=== PATIENT | female | born 1975 | race Caucasian/White ===

== ENCOUNTER 2022-04-22 13:08 | Emergency (ER) | payer BC, SELFPAY ==
[2022-04-22 13:16] VITALS: BP 121/84; PULSE 86; RESP 18; TEMP 36.7; O2SAT 97; BMI 27.3
--- NOTE | 2022-04-22 13:31 | ED_ITS ---
HPI - General Adult General Time Seen by Provider: 13:31 Date Seen: 04/22/22 Chief complaint: Headache/Migraine Stated complaint: migraine Time Seen by Provider: 04/22/22 13:16 Source: patient Mode of arrival: ambulatory Limitations: no limitations History of Present Illness HPI narrative: Patient is a 46-year-old female with history chronic migraines presents with a migraine headache for about the last 10 hours it has been quite significant she has tried her home medications and they have not been successful. No thunderclap nature of the headache, no nuchal rigidity, no neurologic complaints, mild photophobia, and frontal intention type mixed headache symptoms. She presents to ED for evaluation. She had good response to ketamine last visit. Related Data Home Medications Medication Instructions Recorded Confirmed albuterol sulfate 90 mcg/actuation 2 puff inhalation Q4-6H PRN 04/02/22 aerosol inhaler (Ventolin HFA) cyclobenzaprine 10 mg tablet 10 mg PO .QHS PRN 04/02/22 duloxetine 60 mg capsule,delayed 60 mg PO BID 04/02/22 release eszopiclone 3 mg tablet (Lunesta) 3 mg PO .QHS 04/02/22 ondansetron HCl 4 mg tablet 4 mg PO Q6H 04/02/22 Previous Rx's Medication Instructions Recorded pregabalin 200 mg capsule (Lyrica) 200 mg PO .QHS #30 caps 04/10/22 Allergies Allergy/AdvReac Type Severity Reaction Status Date / Time hydrocodone Allergy Mild systemic Verified 03/13/22 10:06 itching, vomiting iodine Allergy Mild itching Verified 03/13/22 10:06 amoxicillin AdvReac Mild Diarrhea Verified 03/13/22 10:06 Shellfish Allergy Allergy Mild vomiting, Uncoded 03/13/22 10:06 itching Clavulanate AdvReac Mild Diarrhea Uncoded 03/13/22 10:06 Review of Systems Status of ROS: Reports: 6 or more systems reviewed and unremarkable except as noted in History and below [facility] Medical History Hemorrhoids Surgical History History of hammer toe correction History of hemorrhoidectomy History of ovarian cystectomy History of sinus surgery History of third molar tooth extraction Family History Mother Breast cancer Other Colon cancer Diabetes Heart disease Stroke Social History Narrative: smoker Smoking Status: Never smoker How often do you have a drink containing alcohol: never AUDIT-C Alcohol total score: 0 Non-prescribed substance use: denies use Exam Narrative: Exam Narrative: Objective: Patient is alert orient x3, pupils equal react to light, no facial asymmetry, throat clear Neck is supple Neurologic nonfocal upper lower extremities patient is ambulatory without difficulty, denies any paresthesias or strength deficit any extremity Good peripheral perfusion noted Skin warm and dry Const: Vital Signs, click to edit/add: Vital Signs - 24 hr 04/22/22 13:16 Temperature 98.1 F Pulse Rate [Left P ulse Oximeter] 86 Respiratory Rate 18 Blood Pressure [Le ft Upper Arm] 121/84 Pulse Oximetry 97 Oxygen Delivery Me thod Room Air Course Vital Signs Vital signs: Initial Vital Signs Temperature 98.1 F 04/22/22 13:16 Temperature Source Temporal Artery Scan 04/22/22 13:16 Pulse Rate 86 04/22/22 13:16 Respiratory Rate 18 04/22/22 13:16 Blood Pressure 121/84 04/22/22 13:16 Blood Pressure Mean 96 04/22/22 13:16 Blood Pressure Position Sitting 04/22/22 13:16 Pulse Oximetry 97 04/22/22 13:16 Oxygen Delivery Method 04/22/22 13:16 Vital Signs Temperature 98.1 F 04/22/22 13:16 Pulse Rate 86 04/22/22 13:16 Respiratory Rate 18 04/22/22 13:16 Blood Pressure 121/84 04/22/22 13:16 Pulse Oximetry 97 04/22/22 13:16 Oxygen Delivery Method 04/22/22 13:16 Temperature 98.1 F 04/22/22 13:16 Pulse Rate 86 04/22/22 13:16 Respiratory Rate 18 04/22/22 13:16 Blood Pressure 121/84 04/22/22 13:16 Pulse Oximetry 97 04/22/22 13:16 Oxygen Delivery Method 04/22/22 13:16 Medical Decision Making MDM Narrative Medical decision making narrative: The patient has responded well to ketamine in the past, she has a longstanding migrainous person, will give her some IV Solu-Medrol and ketamine as she had last visit and that seemed to help her quite a bit. Should be monitored in the ED for a period of time, then discharge home with family for rest observation. Would recommend followup with regular doctor within the next couple of days. Patient feels markedly better after her IV ketamine and fluid in Solu-Medrol, will allow to go home rest light activity, light diet, update primary care in the next 48 hours, return to ED sooner problems concerns difficulty. Discharge Plan Discharge Clinical Impression: Migraine headache Patient Disposition: Home w/ Parent or Adult Condition: Improved Additional Instructions: Rest, light activity, use her home medications as per usual Update primary care doctor next couple of days, looked very light activity today as mention Discharge Diet: Regular Prescriptions: No Action ondansetron HCl 4 mg tablet 4 mg PO Q6H albuterol sulfate [Ventolin HFA] 90 mcg/actuation HFA aerosol inhaler 2 puff inhalation Q4-6H PRN eszopiclone [Lunesta] 3 mg tablet 3 mg PO .QHS cyclobenzaprine 10 mg tablet 10 mg PO .QHS PRN duloxetine 60 mg capsule,delayed release(DR/EC) 60 mg PO BID pregabalin [Lyrica] 200 mg capsule 200 mg PO .QHS Qty: 30 0RF Follow Up/Referrals: Bessy Rivera PA-C [Primary Care Provider] - Stand Alone Forms: [employer] Info Instructions
[2022-04-22] MEDS: KETAMINE HCL 20 MG in 0.9 % SODIUM CHLORIDE 100 ml 100 ML 200.4 MG IVPB (14:01)
[2022-04-22] MEDS: METHYLPREDNISOLONE SOD SUCC 62.5 MG/ML (125) 125 MG IVP (14:01)
[2022-04-22] MEDS: 0.9 % SODIUM CHLORIDE 1000 ml 1,000 ML IV (14:01)
== END 2022-04-22 15:30 | disposition home or self-care (01) ==
LOC: ED 14:12
PROVIDERS: Emergency Provider Family Medicine; PCP Physician Assistant Medical
DX: R51.9 Headache, unspecified (principal)
CPT/HCPCS: 96365; 96375; 99284; J2930; J3490; J7030

== ENCOUNTER 2022-08-31 02:27 | Emergency (ER) | payer BC, SELFPAY ==
[2022-08-31 02:36] VITALS: BP 134/93; PULSE 88; RESP 18; TEMP 36.9; O2SAT 98
--- NOTE | 2022-08-31 03:03 | ED_ITS ---
HPI - Dental/Oral General Time Seen by Provider: 03:03 Date Seen: 08/31/22 Chief complaint: Jaw Injury/Pain Stated complaint: extreme jaw pain on right side with migraine Time Seen by Provider: 08/31/22 03:03 Source: patient, RN notes reviewed and old records reviewed Mode of arrival: ambulatory Limitations: no limitations History of Present Illness HPI Narrative: Madison is a very pleasant 47-year-old female with a history of migraines, anxiety depression and now dental pain who presents to the ER for jaw pain as well as headache. Patient notes the onset of a dull ache in her right lower on WednesdayAugust 28. She does not remember injuring a tooth but felt like may be a filling had fallen out. She notes that in the last 24 hours the pain now radiates into her face and in back into her ear. She notes no specific ear pain or drainage. She has not had a fever but does feel like she has had chills. She is not sure she has a bad taste in her mouth. She notes that this has marked a migraine for her. This migraine is typical for her. She has tried her Relpax an injectable Toradol at home. Last dose of Toradol was greater than 12 hours ago. She and her daughter have both had cold-like symptoms. She describes a runny nose and a mild cough. Her daughter did test and she was negative for COVID. Madison herself has not had any of those tests. Madison sees a dentist in [place] named Dr. Floyd and already has a call into him. MD Complaint: tooth pain and tooth injury Teeth map: 1. Related Data Previous Rx's Medication Instructions Recorded cyclobenzaprine 10 mg tablet 10 mg PO .QHS PRN muscle spasm #30 06/03/22 tabs pregabalin 200 mg capsule (Lyrica) 200 mg PO .QHS #90 caps 06/03/22 duloxetine 60 mg capsule,delayed 60 mg PO BID #180 caps 08/05/22 release fluoxetine 20 mg capsule 20 mg PO QDAY #30 caps 08/05/22 eszopiclone 3 mg tablet (Lunesta) 3 mg PO .QHS #30 tabs 08/11/22 Allergies Allergy/AdvReac Type Severity Reaction Status Date / Time hydrocodone Allergy Mild systemic Verified 08/05/22 13:44 itching, vomiting iodine Allergy Mild itching Verified 08/05/22 13:44 amoxicillin AdvReac Mild Diarrhea Verified 08/05/22 13:44 Shellfish Allergy Allergy Mild vomiting, Uncoded 08/05/22 13:44 itching Clavulanate AdvReac Mild Diarrhea Uncoded 08/05/22 13:44 Review of Systems Status of ROS: Reports: 6 or more systems reviewed and unremarkable except as noted in History and below Const: Reports: chills; Denies: fever Eyes: Denies: change in vision ENMT: Reports: mouth pain; Denies: throat pain, throat swelling, difficulty swallowing, swelling of l ips/tongue, ear pain or ear discharge Cardio: Denies: shortness of breath with exertion Resp: Reports: cough; Denies: shortness of breath GI: Denies: abdominal pain or difficulty swallowing Neuro: Reports: headache Allergy/Immuno: Denies: throat swelling [facility] Medical History Hemorrhoids Surgical History History of hammer toe correction History of hemorrhoidectomy History of ovarian cystectomy History of sinus surgery History of third molar tooth extraction Family History Mother Breast cancer Other Colon cancer Diabetes Heart disease Stroke Social History Narrative: smoker Smoking Status: Current every day smoker How often do you have a drink containing alcohol: never AUDIT-C Alcohol total score: 0 Non-prescribed substance use: denies use Little interest or pleasure in doing things: more than half the days Feeling down, depressed, or hopeless: nearly every day service: No Exam Narrative: Exam Narrative: Alert and oriented. Somewhat dramatic in appearance. Eyes are clear. TMs bilaterally without fluid. Pupils are equal and round and reactive. Patient does appear to have mild photophobia. Face is symmetrical. Patient is tender to touch at angle of the right jaw but I do not palpate any lymphadenopathy and there is no erythema or edema. Heart with regular rate and rhythm. No respiratory distress and lungs are clear. Oral cavity shows moist mucous membranes. No erythema exudate in the posterior oropharynx. Tooth number 31 shows the inside back corner appears to have been broken off or perhaps there had been a filling in this location and had fallen out. There is no swelling of the gum around this area. I do not see any disc harge at this time. No trismus on exam. Moving all extremities. Const: Vital Signs, click to edit/add: Vital Signs - 24 hr 08/31/22 02:36 Temperature 98.4 F Pulse Rate [Right Pulse Oximeter] 88 Respiratory Rate 18 Blood Pressure [Ri ght Upper Arm] 134/93 H Pulse Oximetry 98 Oxygen Delivery Me thod Room Air Documenting provider has reviewed patient's vital signs: yes Course Course Hospital Course: Patient is experiencing dental pain that appears to have sparked a migraine. She does not appear to be toxic or have ongoing significant infection but will start penicillin 500 mg p.o. here in the ER. An IV will be placed ketamine 20 mg IV, Toradol 15 mg IV and Tylenol with codeine 2 tablets will be given to patient. Note patient has an allergy to hydrocodone that is described as a feeling of tingling on the skin. Patient states that she has gotten relief with codeine in the past and will attempt to give her some relief here tonight. Previous notes note that she had good relief from her migraine with ketamine. Reevaluation(s) Reevaluation #1: Patient noted to be improved after IV treatment. Penicillin 500 mg p.o. given in the ED as well. Vital Signs Vital signs: Initial Vital Signs Temperature 98.4 F 08/31/22 02:36 Temperature Source Temporal Artery Scan 08/31/22 02:36 Pulse Rate 88 08/31/22 02:36 Respiratory Rate 18 08/31/22 02:36 Blood Pressure 134/93 H 08/31/22 02:36 Blood Pressure Mean 106 08/31/22 02:36 Blood Pressure Position Sitting 08/31/22 02:36 Pulse Oximetry 98 08/31/22 02:36 Oxygen Delivery Method 08/31/22 02:36 Vital Signs Temperature 98.4 F 08/31/22 02:36 Pulse Rate 88 08/31/22 02:36 Respiratory Rate 18 08/31/22 02:36 Blood Pressure 134/93 H 08/31/22 02:36 Pulse Oximetry 98 08/31/22 02:36 Oxygen Delivery Method 08/31/22 02:36 Temperature 98.4 F 08/31/22 02:36 Pulse Rate 88 08/31/22 02:36 Respiratory Rate 18 08/31/22 02:36 Blood Pressure 134/93 H 08/31/22 02:36 Pulse Oximetry 98 08/31/22 02:36 Oxygen Delivery Method 08/31/22 02:36 MDM - Dental/Oral MDM Narrative Medical decision making narrative: 1. Dental pain-broken tooth verses dislodged filling. Penicillin 500 mg p.o. will provide handwritten prescription in the event patient is unable to follow- up with her dentist today. For pain she may continue to use ibuprofen 600 mg p.o. Q 8 hours. Will also provide few tablets of Tylenol with codeine to be used for breakthrough pain. Patient is to see dentist today. Notes her dental pain is much better after her IV treatment. 2. Migraine-patient received ketamine 20 mg IV piggyback and Toradol 15 mg IV. Notes resolution of her migraine at this time. 3. Disposition-home with her daughter. Of course return to the ER for fever, onset of facial swelling and as needed. Medical Records Attestation: I reviewed the patient's medical records. Discharge Plan Discharge Clinical Impression: Migraine, Pain, dental Patient Disposition: Home, Self-Care Condition: Improved Additional Instructions: Continue penicillin if you are unable to get in to see the dentist this morning.(written prescription) For pain you may use ibuprofen 600 mg every 8 hours. For breakthrough pain Tylenol with codeine may be use. Do not use any additional Tylenol. Seek medical attention for worsening symptoms especially fever swelling of the face and as needed. Follow-up with dentist today. Prescriptions: No Action duloxetine 60 mg capsule,delayed release(DR/EC) 60 mg PO BID Qty: 180 0RF fluoxetine 20 mg capsule 20 mg PO QDAY Qty: 30 0RF cyclobenzaprine 10 mg tablet 10 mg PO .QHS PRN (Reason: muscle spasm) Qty: 30 3RF pregabalin [Lyrica] 200 mg capsule 200 mg PO .QHS Qty: 90 1RF eszopiclone [Lunesta] 3 mg tablet 3 mg PO .QHS Qty: 30 1RF Follow Up/Referrals: Bessy Rivera PA-C [Primary Care Provider] - Stand Alone [facility] Inst[facility]
[2022-08-31] MEDS: KETOROLAC 15 MG/ML inj IVP (03:42)
[2022-08-31] MEDS: KETAMINE HCL 20 MG in 0.9 % SODIUM CHLORIDE 100 ml 100 ML 200.4 MG IVPB (03:42)
== END 2022-08-31 05:23 | disposition home or self-care (01) ==
PROVIDERS: Emergency Provider Family Medicine; PCP Physician Assistant Medical
DX: K08.89 Other specified disorders of teeth and supporting structures (principal); G43.909 Migraine, unspecified, not intractable, without status migrainosus
CPT/HCPCS: 96365; 96375; 99284; A9270; J1885; J3490

== ENCOUNTER 2023-04-24 00:25 | Emergency (ER) | payer BC, SELFPAY ==
[2023-04-24 00:40] VITALS: BP 120/78; PULSE 111; RESP 16; TEMP 36.1; O2SAT 98; BMI 30.8
--- NOTE | 2023-04-24 01:07 | ED_ITS ---
HPI - General Adult General Chief complaint: Dental/Oral/Mouth Injury/Pain Stated complaint: dental infection now has extreme swelling n pain Time Seen by Provider: 04/24/23 00:40 Source: patient Mode of arrival: ambulatory Limitations: no limitations History of Present Illness HPI narrative: 47-year-old female with known history of dental caries and recent infection presents the emergency department with recent increase in swelling and fear that she will run out of her pain medication over this holiday weekend. She reports that she has are dentist on Wednesday and on again. He has placed her on amoxicillin to help treat dental infection. She reports that the swelling is getting worse. She is not noticing any fever. Swelling is in the left lower mandibular area and a little bit under the jaw. She says that her throat is a little sore but she notices no difficulty breathing. She has been using Tylenol and ibuprofen and she was given 10 [place] tablets. She reports that she only has 3 left and she will not make it through the weekend. She reports that she called the office yesterday. It is unclear to the rationale as to why refill was not sent but she does not have a clear answer for me. It is the middle of the night of a holiday weekend, of course. She is not immunocompromised, she can still eat and drink normally. She notes no neck pain, chest pain or history of recent surgery. She reports her past medical history is notable for depression, anxiety, fibromyalgia. Home medications albuterol p.r.n. Flexeril Lunesta, antidepressant and Lyrica. Allergies hydrocodone, shellfish, iodine. She does have an allergy to Augmentin but tolerates amoxicillin. ROS is notable for the dental area pain and mild facial swelling as described above. Otherwise denies times 12 systems. Related Data Home Medications Medication Instructions Recorded Confirmed lurasidone 20 mg tablet 20 mg PO QPM 12/01/22 04/24/23 albuterol 90 mcg/actuation aerosol mcg inhalation PRN 04/24/23 inhaler amoxicillin 500 mg capsule 500 mg PO 3XD 04/24/23 04/24/23 eletriptan 40 mg tablet mg PRN PRN 04/24/23 hydrocodone 5 mg-acetaminophen 325 1 tab PO Q4-6H pain 04/24/23 04/24/23 mg tablet ketorolac 10 mg tablet mg PRN 04/24/23 ondansetron HCl 4 mg tablet 4 mg PO Q6H PRN 04/24/23 04/24/23 Previous Rx's Medication Instructions Recorded pregabalin 200 mg capsule (Lyrica) 200 mg PO .QHS #90 caps 01/05/23 cyclobenzaprine 10 mg tablet 10 mg PO QPM PRN for muscle spasm 04/15/23 #30 tabs eszopiclone 3 mg tablet 3 mg PO QHS PRN insomnia #30 tabs 04/15/23 Allergies Allergy/AdvReac Type Severity Reaction Status Date / Time iodine Allergy Mild itching Verified 12/01/22 14:41 hydrocodone AdvReac Mild systemic Verified 04/24/23 00:46 itching, vomiting Shellfish Allergy Allergy Mild vomiting, Uncoded 12/01/22 14:41 itching Clavulanate AdvReac Mild Diarrhea Uncoded 12/01/22 14:41 PFSH PFSH Medical History Hemorrhoids ?K64.9 - Unspecified hemorrhoids (ICD-10) Surgical History History of colonoscopy ?Z98.890 - Other specified postprocedural states (ICD-10) History of third molar tooth extraction ?K08.409 - Partial loss of teeth, unspecified cause, unspecified class (ICD- 10) History of sinus surgery ?Z98.890 - Other specified postprocedural states (ICD-10) History of ovarian cystectomy ?Z98.890 - Other specified postprocedural states (ICD-10) ?Z87.42 - Personal history of other diseases of the female genital tract (ICD-10) History of hemorrhoidectomy ?Z98.890 - Other specified postprocedural states (ICD-10) History of hammer toe correction ?Z98.890 - Other specified postprocedural states (ICD-10) ?Z87.39 - Personal history of other diseases of the musculoskeletal system and connective tissue (ICD-10) Family History Mother Breast cancer Other Colon cancer Diabetes Heart disease Stroke Social History Narrative: smoker Smoking Status: Current every day smoker How often do you have a drink containing alcohol: never AUDIT-C Alcohol total score: 0 Non-prescribed substance use: denies use Little interest or pleasure in doing things: more than half the days Feeling down, depressed, or hopeless: nearly every day service: No Exam Const: Vital Signs, click to edit/add: Vital Signs - 24 hr 04/24/23 00:40 Temperature 97.0 F L Pulse Rate [Right Pulse Oximeter] 111 H Respiratory Rate 16 Blood Pressure [Ri ght Upper Arm] 120/78 Pulse Oximetry 98 Oxygen Delivery Me thod Room Air Documenting provider has reviewed patient's vital signs: yes Common normals: no apparent distress and alert General appearance: cooperative and comfortable HENMT: Common normals: head/scalp atraumatic Head and scalp: atraumatic Other: Very mild swelling to submandibular and left mandibular area. No overlying redness. No area of fluctuance. Open and closes the jaw perfectly normally. Inside the mouth, overall poor dentition. No significant areas of purulent drainage or fluctuance. There is mild swelling of the left lower anterior gum, but not severe. Lips are acyanotic. Normal oral mucosa otherwise. Absolutely no swelling to the posterior pharynx, uvula or tongue. Overlying skin of the face with no redness, open sores or warmth. Eye: Common normals: conjunctivae normal Conjunctiva: conjunctiva(e) normal Neck & C-Spine: Common normals: full ROM and no meningeal signs Other: Mild left submandibular lymphadenopathy only, no other areas affected Resp: Common normals: normal respiratory effort and no use of accessory m uscles Effort & inspection: able to speak in complete sentences Cardio: Common normals: regular rate and regular rhythm Rate: regular rate Rhythm: regular rhythm Neuro: Sensorium/orientation: alert Meningeal signs: no meningeal signs Speech: speech normal Gait (neuro): normal gait Motor exam: no tremor noted Psych: Common normals: speech normal Activity/motor behavior: appropriate eye contact Speech: normal speech Mood and affect: euthymic mood Insight: insight good Judgement: judgment good Skin: Common normals: no rashes or lesions noted General skin exam: no rashes or lesions noted Course Course Hospital Course: Counseled patient on diagnosis. No signs of major soft tissue infection, airway compromise. Recommended that she continue her amoxicillin. Discussed Tylenol and ibuprofen for pain control. Limited refill of [place] given through the weekend only due to the holiday. Counseled that if she comes back to the emergency department she will absolutely not be given additional narcotics. Alarm symptoms reviewed that would warrant true ED presentation. She verbalized understanding and agreement. She will follow up with her dentist if she has any further concerns. Vital Signs Vital signs: Initial Vital Signs Temperature 97.0 F L 04/24/23 00:40 Temperature Source Temporal Artery Scan 04/24/23 00:40 Pulse Rate 111 H 04/24/23 00:40 Respiratory Rate 16 04/24/23 00:40 Blood Pressure 120/78 04/24/23 00:40 Blood Pressure Mean 92 04/24/23 00:40 Blood Pressure Position Sitting 04/24/23 00:40 Pulse Oximetry 98 04/24/23 00:40 Oxygen Delivery Method Room Air 04/24/23 00:40 Vital Signs Temperature 97.0 F L 04/24/23 00:40 Pulse Rate 111 H 04/24/23 00:40 Respiratory Rate 16 04/24/23 00:40 Blood Pressure 120/78 04/24/23 00:40 Pulse Oximetry 98 04/24/23 00:40 Oxygen Delivery Method Room Air 04/24/23 00:40 Temperature 97.0 F L 04/24/23 00:40 Pulse Rate 111 H 04/24/23 00:40 Respiratory Rate 16 04/24/23 00:40 Blood Pressure 120/78 04/24/23 00:40 Pulse Oximetry 98 04/24/23 00:40 Oxygen Delivery Method Room Air 04/24/23 00:40 Discharge Plan Discharge Clinical Impression: Toothache Patient Disposition: Home, Self-Care Condition: Stable Instructions: Toothache (ED) Additional Instructions: As we discussed, continue taking ibuprofen 600 mg every 6 hours and or an appropriate amount of Tylenol to ensure that you are staying under 4000 mg every 24 hours. I have given you a very limited supply of [place], 10 tablets. As we discussed, it is not appropriate to come into the emergency department for further refills of narcotic pain medication. If your dentist finds it appropriate to prescribe more of them, this would need to be done through their office. They do have weekend coverage through an on-call provider typically. If you come back to the emergency department, no further refills will be given. Continue taking your antibiotic, you should start to notice some improvement within a few days. The numbness is not uncommon because of the swelling and will improve once the swelling goes down. There are no signs of abscess, airway compromise or extension of the infection down into the neck or important structures. If things worsen significantly, especially if your having fever over 100.4 and or true difficulty breathing, come back to the emergency department. Activity Level: No Restrictions Discharge Diet: Regular Prescriptions: No Action lurasidone 20 mg tablet 20 mg PO QPM amoxicillin 500 mg capsule 500 mg PO 3XD hydrocodone-acetaminophen 5-325 mg tablet 1 tab PO Q4-6H ondansetron HCl 4 mg tablet 4 mg PO Q6H PRN ketorolac 10 mg tablet PRN albuterol 90 mcg/actuation aerosol INHALATION PRN eletriptan 40 mg tablet PRN PRN Rx Instructions: TAKE ONE TAB AT ONSET OF HEADACHE, MAY REPEAT AFTER 2 HOURS IF HEADACHE RETURNS pregabalin [Lyrica] 200 mg capsule 200 mg PO .QHS Qty: 90 1RF eszopiclone 3 mg tablet 3 mg PO QHS PRN (Reason: insomnia) Qty: 30 0RF cyclobenzaprine 10 mg tablet 10 mg PO QPM PRN (Reason: for muscle spasm) Qty: 30 0RF Follow Up/Referrals: Bessy Rivera PA-C [Primary Care Provider] - Stand Alone Forms: [employer] Info Instructions
== END 2023-04-24 01:06 | disposition home or self-care (01) ==
LOC: ED 01:03
PROVIDERS: Emergency Provider Family Medicine; PCP Physician Assistant Medical
DX: K08.89 Other specified disorders of teeth and supporting structures (principal)
CPT/HCPCS: 99283

== ENCOUNTER 2023-05-20 15:54 | Emergency (ER) | payer BC, SELFPAY ==
[2023-05-20 15:57] VITALS: BP 120/78; PULSE 109; RESP 20; TEMP 36.3; O2SAT 98; BMI 29.1
--- NOTE | 2023-05-20 16:12 | ED.HA ---
HPI - Headache General Chief Complaint: Headache/Migraine Stated Complaint: Migraine Time Seen by Provider: 05/20/23 16:05 History of Present Illness HPI Narrative: This 48-year-old female has a history of migraine headaches and comes in with a headache that is been present for the past 6 days. She states that it is a typical headache for her but longer lasting and increased in severity. She has sensitivity to light and has some occasional vomiting. She does not report any neurologic deficits. She has seen a neurologist but needs to find a new 1 as her previous 1 retired. She has an appointment in a couple months but states that she has run out of Relpax and injectable Toradol which she used to treat headaches as needed and directed. Related Data Home Medications Medication Instructions Recorded Confirmed lurasidone 20 mg tablet 20 mg PO QPM 12/01/22 05/20/23 albuterol 90 mcg/actuation aerosol See Rx Instructions inhalation 04/24/23 05/20/23 inhaler .COMPLEX amoxicillin 500 mg capsule 500 mg PO 3XD 04/24/23 05/20/23 eletriptan 40 mg tablet See Rx Instructions .Route PRN 04/24/23 05/20/23 hydrocodone 5 mg-acetaminophen 325 1 tab PO Q4-6H pain 04/24/23 05/20/23 mg tablet ketorolac 10 mg tablet See Rx Instructions .Route .COMPLEX 04/24/23 05/20/23 ondansetron HCl 4 mg tablet 4 mg PO Q6H PRN 04/24/23 05/20/23 desvenlafaxine succinate 100 mg 100 mg PO DAILY 05/20/23 05/20/23 tablet,extended release 24 hr desvenlafaxine succinate 25 mg 25 mg PO DAILY 05/20/23 05/20/23 tablet,extended release 24 hr Previous Rx's Medication Instructions Recorded pregabalin 200 mg capsule (Lyrica) 200 mg PO .QHS #90 caps 01/05/23 cyclobenzaprine 10 mg tablet 10 mg PO QPM PRN for muscle spasm 05/19/23 #30 tabs eszopiclone 3 mg tablet 3 mg PO QHS PRN insomnia #30 tabs 05/19/23 eletriptan 20 mg tablet (Relpax) 20 mg PO Q2-4H PRN migraine 05/20/23 headache #20 tabs ketorolac 10 mg tablet 10 mg PO Q8H 5 days #15 tabs 05/20/23 Allergies Allergy/AdvReac Type Severity Reaction Status Date / Time iodine Allergy Mild itching Verified 05/20/23 16:04 hydrocodone AdvReac Mild systemic Verified 05/20/23 16:04 itching, vomiting shellfish Allergy Intermediate Uncoded 05/20/23 16:04 Clavulanate AdvReac Mild Diarrhea Uncoded 12/01/22 14:41 Review of Systems Status of ROS: Reports: 10 or more systems reviewed and unremarkable except as noted in History and below Narrative: Constitutional: No fevers, no weight gain or loss. Eyes: No discharge. No vision changes. HENT: No congestion, no sore throat, no ear pain. Light sensitivity. Cardiovascular: No chest pain, no palpitations. Respiratory: No shortness of breath, no wheezes, no cough. Gastrointestinal: No abdominal pain, no diarrhea. Occasional nausea and vomiting. Genitourinary: No dysuria, no hematuria. Musculoskeletal: Normal range of motion. Skin: No rashes, no pruritis. Neurological: No dizziness, weakness, sensory change, speech change. Endo/Heme/Allergies: No bruising or bleeding. No polydipsia. Pysch: no suicidality, no anxiety, no insomnia. All other systems reviewed and are negative. [facility] Medical History Hemorrhoids ?K64.9 - Unspecified hemorrhoids (ICD-10) Surgical History History of colonoscopy ?Z98.890 - Other specified postprocedural states (ICD-10) History of third molar tooth extraction ?K08.409 - Partial loss of teeth, unspecified cause, unspecified class (ICD-10) History of sinus surgery ?Z98.890 - Other specified postprocedural states (ICD-10) History of ovarian cystectomy ?Z98.890 - Other specified postprocedural states (ICD-10) ?Z87.42 - Personal history of other diseases of the female genital tract (ICD-10) History of hemorrhoidectomy ?Z98.890 - Other specified postprocedural states (ICD-10) History of hammer toe correction ?Z98.890 - Other specified postprocedural states (ICD-10) ?Z87.39 - Personal history of other diseases of the musculoskeletal system and connective tissue (ICD-10) Family History Mother Breast cancer Other Colon cancer Diabetes Heart disease Stroke Social History Narrative: smoker Smoking Status: Current every day smoker How often do you have a drink containing alcohol: never AUDIT-C Alcohol total score: 0 Non-prescribed substance use: denies use Little interest or pleasure in doing things: more than half the days Feeling down, depressed, or hopeless: nearly every day service: No Exam Narrative: Exam Narrative: Constitutional: Well-developed, well-nourished, no acute distress. HEENT: Normocephalic, atraumatic. Neck: Normal range of motion. Nontender. Supple. Heart: Regular. No murmurs. Normal rate. Intact distal pulses. Lungs: Clear to auscultation. No chest discomfort. No wheezes, rhonchi, or rales. Abdomen: Normal bowel sounds. Nontender. No rebound tenderness. Genitalia: Deferred. Back: No midline tenderness. Normal range of motion. Extremities: Normal range of motion. No injury. Skin: Intact. No rash. Warm. No erythema or pallor. Neurologic: No altered sensation. No weakness. Alert and oriented. Psychiatric: No suicidality. No anxiety or depression. No insomnia. Nursing notes and vitals signs are reviewed. Const: Vital Signs, click to edit/add: Vital Signs - 24 hr 05/20/23 15:57 Temperature 97.3 F L Pulse Rate [Pulse Oximeter] 109 H Respiratory Rate 20 Blood Pressure [Ri ght Upper Arm] 120/78 Pulse Oximetry 98 Oxygen Delivery Me thod Room Air Course Vital Signs Vital signs: Initial Vital Signs Temperature 97.3 F L 05/20/23 15:57 Temperature Source Temporal Artery Scan 05/20/23 15:57 Pulse Rate 109 H 05/20/23 15:57 Pulse Rhythm Regular 05/20/23 15:57 Respiratory Rate 20 05/20/23 15:57 Blood Pressure 120/78 05/20/23 15:57 Blood Pressure Mean 92 05/20/23 15:57 Blood Pressure Position Sitting 05/20/23 15:57 Pulse Oximetry 98 05/20/23 15:57 Oxygen Delivery Method Room Air 05/20/23 15:57 Vital Signs Temperature 97.3 F L 05/20/23 15:57 Pulse Rate 109 H 05/20/23 15:57 Respiratory Rate 20 05/20/23 15:57 Blood Pressure 120/78 05/20/23 15:57 Pulse Oximetry 98 05/20/23 15:57 Oxygen Delivery Method Room Air 05/20/23 15:57 Temperature 97.3 F L 05/20/23 15:57 Pulse Rate 109 H 05/20/23 15:57 Respiratory Rate 20 05/20/23 15:57 Blood Pressure 120/78 05/20/23 15:57 Pulse Oximetry 98 05/20/23 15:57 Oxygen Delivery Method Room Air 05/20/23 15:57 MDM - Headache MDM Narrative Medical decision making narrative: This patient comes in with migraine headache for the past 6 days. She is not displaying any neurologic deficits or findings that would indicate a need to workup cause of this headache order rule out other more serious things. Nevertheless I did offer such studies in the patient declined them in the process of shared decision making. An IV was established where she received Toradol 30 mg, Zofran 4 mg, and Benadryl 50 mg. This brought some relief to her symptoms but the patient was interested in receiving a dose of ketamine. 20 mg was then infused over 20-30 minutes in this brought much more significant relief to her symptoms. She has run out of her Relpax and Toradol at home that she uses when headaches arise because she does not have a neurologist that she regularly is connected with now. I did provide prescriptions for these medications and she has a appointment in a couple months with a new neurologist. Discharge Plan Discharge Clinical Impression: Migraine Patient Disposition: Home, Self-Care Condition: Improved Additional Instructions: Take medication as needed and indicated. Follow up with MD or return if worsening. Prescriptions: New eletriptan [Relpax] 20 mg tablet 20 mg PO Q2-4H PRN (Reason: migraine headache) Qty: 20 1RF Rx Instructions: do not exceed 4 doses per 24 hrs ketorolac 10 mg tablet 10 mg PO Q8H 5 Days Qty: 15 0RF No Action lurasidone 20 mg tablet 20 mg PO QPM amoxicillin 500 mg capsule 500 mg PO 3XD hydrocodone-acetaminophen 5-325 mg tablet 1 tab PO Q4-6H ondansetron HCl 4 mg tablet 4 mg PO Q6H PRN ketorolac 10 mg tablet See Rx Instructions .ROUTE .COMPLEX Rx Instructions: has script albuterol 90 mcg/actuation aerosol See Rx Instructions INHALATION .COMPLEX Rx Instructions: inhaled; eletriptan 40 mg tablet See Rx Instructions .ROUTE PRN Rx Instructions: as needed; TAKE ONE TAB AT ONSET OF HEADACHE, MAY REPEAT AFTER 2 HOURS IF HEADACHE RETURNS desvenlafaxine succinate 100 mg tablet extended release 24 hr 100 mg PO DAILY desvenlafaxine succinate 25 mg tablet extended release 24 hr 25 mg PO DAILY pregabalin [Lyrica] 200 mg capsule 200 mg PO .QHS Qty: 90 1RF cyclobenzaprine 10 mg tablet 10 mg PO QPM PRN (Reason: for muscle spasm) Qty: 30 3RF eszopiclone 3 mg tablet 3 mg PO QHS PRN (Reason: insomnia) Qty: 30 0RF Follow Up/Referrals: Bessy Rivera PA-C [Primary Care Provider] - Stand Alone [facility] Info Instructions
[2023-05-20] MEDS: ONDANSETRON 2 MG/ML inj 4 MG IVP (16:36)
[2023-05-20] MEDS: METHYLPREDNISOLONE SOD SUCC 62.5 MG/ML (125) 125 MG IVP (16:36)
[2023-05-20] MEDS: KETOROLAC 30 MG/ML inj IVP (16:36)
[2023-05-20] MEDS: diphenhydrAMINE 50 MG/ML inj IVP (16:36)
[2023-05-20] MEDS: 0.9 % SODIUM CHLORIDE 500 ML 500 ML IV (16:36)
[2023-05-20] MEDS: KETAMINE HCL 20 MG in 0.9 % SODIUM CHLORIDE 100 ml 100 ML 300.6 MG IVPB (17:41)
[2023-05-20 18:18] VITALS: BP 122/84; PULSE 89; RESP 20; O2SAT 95
== END 2023-05-20 18:40 | disposition home or self-care (01) ==
PROVIDERS: Emergency Provider Emergency Medicine Emergency Medical Services; PCP Physician Assistant Medical
DX: G43.909 Migraine, unspecified, not intractable, without status migrainosus (principal)
CPT/HCPCS: 96361; 96374; 96375; 99284; J1200; J1885; J2405; J2930; J3490; J7120

== ENCOUNTER 2024-05-11 21:04 | Emergency (ER) | payer BC, SELFPAY ==
[2024-05-11 21:19] VITALS: BP 115/77; PULSE 73; RESP 16; TEMP 36.4; O2SAT 94; BMI 28.8
--- NOTE | 2024-05-11 21:34 | ED_ITS ---
HPI - Headache General Chief Complaint: Headache/Migraine Stated Complaint: Migraine, nausea, heart skipping, jaw pain Time Seen by Provider: 05/11/24 21:05 History of Present Illness HPI Narrative: Patient is a 49-year-old woman who unfortunately suffers from chronic headaches. She comes in today with a typical global headache that is 10/10 in in intensity. She has had no nausea no vomiting no fevers no chills. She does have a dental infection the left lower premolars which seems to have tip to things over and made her headaches worse. She is requesting infusion of ketamine here in the emergency room. She is as a 2nd show is willing to take her usual cocktail of normal saline Toradol Zofran and Benadryl. No focal neurologic defects patient is otherwise in her usual state of health headache has been present for the last 6 hours. Related Data Home Medications ?Medication ?Instructions ?Recorded ?Confirmed lurasidone 20 mg tablet 20 mg PO QPM 12/01/22 05/20/23 albuterol 90 mcg/actuation aerosol See Rx Instructions inhalation 04/24/23 05/20/23 inhaler .COMPLEX amoxicillin 500 mg capsule 500 mg PO 3XD 04/24/23 05/20/23 eletriptan 40 mg tablet See Rx Instructions .Route PRN 04/24/23 05/20/23 hydrocodone 5 mg-acetaminophen 325 1 tab PO Q4-6H pain 04/24/23 05/20/23 mg tablet ketorolac 10 mg tablet See Rx Instructions .Route .COMPLEX 04/24/23 05/20/23 ondansetron HCl 4 mg tablet 4 mg PO Q6H PRN 04/24/23 05/20/23 desvenlafaxine succinate 100 mg 100 mg PO DAILY 05/20/23 05/20/23 tablet,extended release 24 hr desvenlafaxine succinate 25 mg 25 mg PO DAILY 05/20/23 05/20/23 tablet,extended release 24 hr Previous Rx's ?Medication ?Instructions ?Recorded pregabalin 200 mg capsule (Lyrica) 200 mg PO .QHS #90 caps 01/05/23 eletriptan 20 mg tablet (Relpax) 20 mg PO Q2-4H PRN migraine 05/20/23 headache #20 tabs ketorolac 10 mg tablet 10 mg PO Q8H 5 days #15 tabs 05/20/23 cyclobenzaprine 10 mg tablet 10 mg PO QPM PRN for muscle spasm 06/21/23 #30 tabs eszopiclone 3 mg tablet 3 mg PO QHS #30 tabs 08/12/23 Allergies Allergy/AdvReac Type Severity Reaction Status Date / Time iodine Allergy Mild itching Verified 05/11/24 21:22 hydrocodone AdvReac Mild systemic Verified 05/11/24 21:22 itching, vomiting shellfish Allergy Intermediate Uncoded 05/20/23 16:04 Clavulanate AdvReac Mild Diarrhea Uncoded 12/01/22 14:41 Review of Systems Status of ROS: Reports: 10 or more systems reviewed and unremarkable except as noted in History and below PFSH PFS Medical History Hemorrhoids ?K64.9 - Unspecified hemorrhoids (ICD-10) Surgical History History of colonoscopy ?Z98.890 - Other specified postprocedural states (ICD-10) History of third molar tooth extraction ?K08.409 - Partial loss of teeth, unspecified cause, unspecified class (ICD- 10) History of sinus surgery ?Z98.890 - Other specified postprocedural states (ICD-10) History of ovarian cystectomy ?Z98.890 - Other specified postprocedural states (ICD-10) ?Z87.42 - Personal history of other diseases of the female genital tract (ICD-10) History of hemorrhoidectomy ?Z98.890 - Other specified postprocedural states (ICD-10) History of hammer toe correction ?Z98.890 - Other specified postprocedural states (ICD-10) ?Z87.39 - Personal history of other diseases of the musculoskeletal system and connective tissue (ICD-10) Family History Mother Breast cancer Other Colon cancer Diabetes Heart disease Stroke Social History Narrative: smoker Smoking Status: Current every day smoker How often do you have a drink containing alcohol: never AUDIT-C Alcohol total score: 0 Non-prescribed substance use: denies use Little interest or pleasure in doing things: more than half the days Feeling down, depressed, or hopeless: nearly every day service: No Exam Narrative: Exam Narrative: EXAM GENERAL: Patient appears comfortable and well. Dental swelling in the left lower premolars. EYES: No scleral icterus. ENT: Tympanic membranes and oropharynx normal. THYROID: no thyroid nodules or thyromegaly. LYMPH: No supraclavicular or cervical lymphadenopathy. SKIN: Visible skin seen during exam normal or with benign process only. EXT: No dependent lower extremity pedal edema. HEART: Regular rate and rhythm with no murmurs, rubs, or gallops. LUNGS: Clear to auscultation bilaterally with no crackles or wheezes. ABD: Soft, non tender, non distended. PSYCH: Good eye contact, speech is not pressured. Const: Vital Signs, click to edit/add: Vital Signs - 24 hr 05/11/24 21:19 Temperature 97.5 F L Pulse Rate [Right Pulse Oximeter] 73 Respiratory Rate 16 Blood Pressure [Le ft Upper Arm] 115/77 Pulse Oximetry 94 Oxygen Delivery Me thod Room Air Course Course ED Course: Patient seen and examined. Vital Signs Vital signs: Initial Vital Signs Temperature 97.5 F L 05/11/24 21:19 Temperature Source Temporal Artery Scan 05/11/24 21:19 Pulse Rate 73 05/11/24 21:19 Pulse Rhythm Regular 05/11/24 21:19 Pulse Strength 3+ Normal 05/11/24 21:19 Respiratory Rate 16 05/11/24 21:19 Blood Pressure 115/77 05/11/24 21:19 Blood Pressure Mean 89 05/11/24 21:19 Blood Pressure Position Sitting 05/11/24 21:19 Pulse Oximetry 94 05/11/24 21:19 Oxygen Delivery Method Room Air 05/11/24 21:19 Vital Signs Temperature 97.5 F L 05/11/24 21:19 Pulse Rate 73 05/11/24 21:19 Respiratory Rate 16 05/11/24 21:19 Blood Pressure 115/77 05/11/24 21:19 Pulse Oximetry 94 05/11/24 21:19 Oxygen Delivery Method Room Air 05/11/24 21:19 Temperature 97.5 F L 05/11/24 21:19 Pulse Rate 73 05/11/24 21:19 Respiratory Rate 16 05/11/24 21:19 Blood Pressure 115/77 05/11/24 21:19 Pulse Oximetry 94 05/11/24 21:19 Oxygen Delivery Method Room Air 05/11/24 21:19 MDM - Headache MDM Narrative Medical decision making narrative: At this time I am unable to provide ketamine with bilevel comfort. I am able to give her Toradol normal saline Zofran and Benadryl. I will also treat her dental infection with amoxicillin and recommend outpatient follow-up. Differential diagnosis includes migraine headache cluster headache dental in fection trigeminal neuralgia tension headache. Discharge Plan Discharge Clinical Impression: Headache, Dental infection Patient Disposition: Home, Self-Care Condition: Stable Instructions: Acute Headache (ED) Additional Instructions: Continue current medication Amoxicillin for dental pain Follow-up with your dentist and physician as scheduled. Activity Level: No Restrictions Discharge Diet: Regular Prescriptions: No Action lurasidone 20 mg tablet 20 mg PO QPM amoxicillin 500 mg capsule 500 mg PO 3XD hydrocodone-acetaminophen 5-325 mg tablet 1 tab PO Q4-6H ondansetron HCl 4 mg tablet 4 mg PO Q6H PRN ketorolac 10 mg tablet See Rx Instructions .ROUTE .COMPLEX Rx Instructions: has script albuterol 90 mcg/actuation aerosol See Rx Instructions INHALATION .COMPLEX Rx Instructions: inhaled; eletriptan 40 mg tablet See Rx Instructions .ROUTE PRN Rx Instructions: as needed; TAKE ONE TAB AT ONSET OF HEADACHE, MAY REPEAT AFTER 2 HOURS IF HEADACHE RETURNS desvenlafaxine succinate 100 mg tablet extended release 24 hr 100 mg PO DAILY desvenlafaxine succinate 25 mg tablet extended release 24 hr 25 mg PO DAILY eletriptan [Relpax] 20 mg tablet 20 mg PO Q2-4H PRN (Reason: migraine headache) Qty: 20 1RF Rx Instructions: do not exceed 4 doses per 24 hrs ketorolac 10 mg tablet 10 mg PO Q8H 5 Days Qty: 15 0RF pregabalin [Lyrica] 200 mg capsule 200 mg PO .QHS Qty: 90 1RF cyclobenzaprine 10 mg tablet 10 mg PO QPM PRN (Reason: for muscle spasm) Qty: 30 3RF eszopiclone 3 mg tablet 3 mg PO QHS Qty: 30 0RF Follow Up/Referrals: Rivera,Mukti B, PA-C [Primary Care Provider] - Stand Alone Forms: [email or web address] Info Instructions
[2024-05-11] MEDS: diphenhydrAMINE 50 MG/ML inj IVP (21:39)
[2024-05-11] MEDS: KETOROLAC 30 MG/ML inj IVP (21:39)
[2024-05-11] MEDS: 0.9 % SODIUM CHLORIDE 1000 ml 1,000 ML IV (21:40)
[2024-05-11] MEDS: ONDANSETRON 2 MG/ML inj 4 MG IVP (21:40)
--- OUTSIDE RECORDS SUMMARY | 2024-05-11 21:55 | XMS_ITS | Continuity of Care Document ---
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 [address] [place], [place], [id number], [place]. tel:[phone] Referring Provider: Christopher Horner, [address] [place], [address]. tel:[phone] TALA Ma, [address], [place], [id number], tel:[phone] [facility] 7[address] No Information [facility] [place]. [address] [place], [place], [id number], . tel:[phone] Referring Provider: Christopher Horner, [address] [place], [address]. tel:[phone] TALA Ma, [address], [place], [place], [id number], [place] tel:[phone] Tiffanie Mchugha [facility] 7390 No Information 6 [facility] [place]. [address], [place], [place], [id number], [place]. tel:[phone] Referring Provider: Christopher Horner, [address], [place], [address]. tel:[phone] [facility], [address], [place], [place], [id number], [place] tel:[phone] Tiffanie Mchugha [facility] 7390 No Information 6 [facility] [place]. [address], [place], [place], [id number], [place]. tel:[phone] Referring Provider: Christopher Horner, [address], [place], [address]. tel:[phone] [facility], [address], [place], [address], [place] tel:[phone] [facility] Spondylosis without myelopathy or radiculopathy, lumbar regionSpondylo sis without myelopathy or radiculopathy, lumbosacral regionOther intervertebral disc degeneration, lumbar regionLow back pain 6 Saida Sage. [address], [place], [place], [address], [place]. tel:[phone] Referring Provider: Chu iDck, [address], [place], [address] . tel:[phone] Anil, [facility], [address], [place], [place], [address], [place] tel:[phone] [facility] No Information 6 Saida Sage. [address], [place], [place], [address], [place]. tel:[phone] Referring Provider: Chu Dick, [address], [place], [address] . tel:[phone] Anil, [facility], [address], [place], [place], [id number], [place] tel:[phone] [facility] 7390 No Information [facility] [place]. [address], [place], [place], [id number], [place]. tel:[phone] Referring Provider: Christopher Horner, [address], [place], [address]. tel:[phone] New Pt Eval 45 Min Anil, [facility], [address], [place], [place], [id number], [place] tel:[phone] [facility] Other intervertebral disc degeneration, lumbar regionOther intervertebral disc displacement, lumbosacral regionLesion of sciatic nerve, right lower limbSacroiliit is, not elsewhere classified No Information Referring Provider: Christopher Horner, [address], [place], [address]. tel:[phone] Family History Family Member Type Diagnosis Age [...] Covered republican ID Authoriza tiyou(s) [facility] [id number] Social History Type Description Quantity Date Captured [...]
--- OUTSIDE RECORDS SUMMARY | 2024-05-11 21:55 | XMS_ITS | Clinical Summary ---
Author Organization [facility] Address [address] [place] [address] Care Team Providers Care Breaking Machine Operator Name Role Phone Bessy Rivera PA-C Primary Care Provider [phone] Source Comments You are receiving this document as you are listed as the primary care provider,follow-up provider, or the patient has been referred to you for consultation.This is in compliance with the Medicare and[facility] EHR Incentive Program,which states Providers who transition their patient to another setting of careor provider of care or refers their patient to another provider of care shouldprovide summary care record for each transition of care or referral. [place] Allergies Active Allergy Reactions Criticality Noted Date Comments Amoxicillin-Pot Clavulanate Gastrointestinal 12/27/2020 Iodine 04/11/2010 PN: LW Reaction: Unknown Reaction Morphine And Codeine Itching 12/27/2020 Medications Medication Sig Dispensed Refills Start Date End Date Status CALCIUM OR Take by mouth. 08/03/2008 Active piroxicam (AKA FELDENE) 20 MG capsule Take 1 capsule by mouth daily (every 24 hours). LW Addl Instr:Take with food. Indicated for: Arthritis 90 3 08/03/2008 Active DRUG NOT IN COMPUTER Take 3 each by mouth nightly. LW Comment:tiazadine 300mg 08/03/2008 Active gabapentin (NEURONTIN) 300 MG capsule Take 3 capsules by mouth nightly. 90 3 08/03/2008 Active Multiple Vitamins-Calcium (ONE-A-DAY WOMENS FORMULA) Indications: PN: 08/03/2008 Active levonorgestrel (AKA MIRENA) 20 MCG/24HR IUD LW Addl Instr:INDICATED FOR CONTRACEPTION. 1 01/08/2009 Active levonorgestrel (AKA MIRENA) 20 MCG/24HR IUDIndications:Encou nter for insertion of intrauterine contraceptive device 1 each by Intrauterine route See Admin Instructions. To be administered once every 5 years in clinic office. 1 each 0 06/07/2012 Active buPROPion (AKA WELLBUTRIN) 100 MG tablet Take 100 mg by mouth 2 times daily. 06/07/2012 Active cyclobenzaprine (FLEXERIL) 10 MG tablet Take 10 mg by mouth at bedtime as needed. 12/07/2020 Active DULoxetine (CYMBALTA) 60 MG capsule Take 60 mg by mouth two times a day. 12/20/2020 Active eletriptan (RELPAX) 40 MG tablet TAKE 1 TABLET AT HEADACHE ONSET. MAY COMBINE WITH 2 ALEVE. MAY REPEAT IN 2 HOURS IF HEADACHES OVERTREAT 10/28/2020 Active eszopiclone (LUNESTA) 3 MG tablet Take 3 mg by mouth daily at bedtime. 12/07/2020 Active pregabalin (LYRICA) 200 MG capsule Take 200 mg by mouth daily at bedtime. 12/07/2020 Active ondansetron (ZOFRAN) 4 MG tablet Take 1 Tablet by mouth every 8 hours as needed for Nausea. 9 Tablet 12/27/2020 Active meclizine (ANTIVERT) 25 MG tablet Take 1 Tablet by mouth 4 times daily as needed for Dizziness/Vertigo. 15 Tablet 12/27/2020 Active ketorolac (TORADOL) 10 MG tablet Take 10 mg by mouth every 6 hours as needed for Pain. Takes injectable medication Active Active Problems Problem Noted Date Diagnosed Date Abnormal glandular Papanicolaou smear of cervix 04/06/2005 Overview (04/14/2017): LW Modifier: LEEP LW Onset: 07/26 ; Pap Smear Abnormal Endocervix Contraceptive management 04/06/2005 Overview (04/14/2017): Contraceptive Management NOS Follicular cyst of ovary 04/06/2005 Overview (04/14/2017): LW Onset: 1997 ; Cyst Ovarian Follicular Immunizations Name Administration Dates Next Due Flu Vac (18-64 Yrs), Intradermal 06/17/2012 Flu Vac (3+ yrs) 08/03/2018,06/20/2008, 7 Flu Vac Preserv Free (3+yrs) 06/17/2009,05/21/20 04 Fluzone Qiv Multidose Vial 0 .25 (6-35 Mos) 07/17/2019 HepA Adult (19+ yrs) 03/29/2009,06/20/2008 HepB Adult (Engerix-B, 20+ y rs, 3 dose series) 03/17/1999,12/13/1997,10/31/1997 Influenza IIV4 (Quadrivalent ) 0.5mL (13418) 05/20/2022,05/20/2022,05/23/2021,2016,05/14/2016 Influenza, Unspecified Formulation 06/17/2009, Mary COVID-19 Vaccine 01/21/2021 PPSV23 (Pneumovax) 08/26/2010 Pfizer Monovalent 12+ Purple Top 08/26/2021 TDAP (ADACEL) 06/19/2008 Td 03/31/1993 Td, Preservative Free 12/29/2016 Social History Tobacco Use Types Packs/Day Years Used Date Smoking Tobacco: Every Day Cigarettes Smokeless Tobacco: Never Sex and Gender Information Value Date Recorded Sex Assigned at Not on file Gender Identity Not on file Sexual Orientation Not on file Last Filed Vital Signs Vital Sign Reading Time Taken Comments Blood Pressure 125/77 12/27/2020 11:20 AM CDT Pulse 75 12/27/2020 11:20 AM CDT Temperature 36.8 ??C (98.3 ??F) 12/27/2020 1 1:20 AM CDT Respiratory Rate 16 12/27/2020 11:2 0 AM CDT Oxygen Saturation 100% 12/27/2020 11: 20 AM CDT Inhaled Oxygen Concentration - - Weight 54.3 kg (119 lb 12.8 oz) 012 9:15 AM CDT Height 166.4 cm (5' 5.5) 04/11/2010 8: 42 AM CDT C: 166.4cm Body Mass Index 19.63 04/11/2010 8:42 AM CDT Plan of Treatment Health Maintenance Due Date Last Done Comments Colon Cancer Screening Plan Due 1977 Hep C Screening (Preventive Services) 1977 Mammogram 1977 Adult Preventive Visit 1995 Cervical Cancer Screening Due 04/12/2010 04/11/2010, 08/03/2008, 04/11/2007, Additional history exists Pneumococcal (2 - PCV) 08/26/2011 08/26/2010 Cholesterol 2022 COVID-19 Vaccine (3 - season) 2024 08/26/2021, 01/21/2021 Influenza (#1) 2024 05/20/2022, 04/24, 05/23/2021, Additional history exists DTaP/Tdap/Td (4 - Tdap) 12/29/2026 12/30/19 17, 06/19/2008, 03/31/1993 Zoster/Shingles (1 of 2) 2027 HepB Completed 03/17/1999, 11/22, 10/31/1997 HIV Screening (Preventive Services) Completed 11/23/2003 HepA Aged Out 03/29/2009, 06/20/2008 No lo nger eligible based on patient's age to complete this topic Hib Aged Out No longer eligi ble based on patient's age to complete this topic IPV (Polio) Aged Out No longer eligi ble based on patient's age to complete this topic MCV4 Aged Out No longer eligi ble based on patient's age to complete this topic Procedures Procedure Name Priority Date/Time Associated Diagnosis Comments ANATOMICAL PATH LIQUID BASED Routine 04/11/2010 9:36 AM CDT HIV ANTIBODY Routine 11/23/2003 9:52 AM CURATOR OF EDUCATION from Last 3 Months or Most Recently Relevant to Health Maintenance Results * Pap Smear (04/11/2010 9:36 AM CDT) Pap Smear SEE TEXT No normal range HP CONVERSION Comment: Final GYNECOLOGICAL CYTOLOGY REPORT Pathology #: [id number] ?Date Obtained: 04/11/2010 ? Date Received: 04/14/2010 INTERPRETATION/RESULTS: Negative for Intraepithelial Lesion or Malignancy SPECIMEN ADEQUACY: Satisfactory for Evaluation. ??Endocervical cells/transformation zone component present. Verified on 04/16/2010 ??by ALEXIS JEWELL(ASCP) (electronic signature) CLINICAL NOTES: ?LMP: not stated, IUD. SPECIMEN TYPE: ? CERVICAL WITH REFLEX TO HPV IF ASCUS ?End of Report 04/11/2010 9:36 AM CDT Cj Floyd MD LAB_1 HP CONVERSION * HIV Antibody (11/23/2003 9:52 AM CURATOR OF EDUCATION) Pathologist [facility] HIV 1/HIV 2 Non Reac Non Reac HP CONVERSION 11/23/2003 9:52 AM CURATOR OF EDUCATION Preeti Cano APRN, [facility] LAB_1 HP CONVERSION from Last 3 Months or Most Recently Relevant to Health Maintenance Care Teams Breaking Machine Operator Relationship Specialty Start Date End Date Bessy Rivera, PAValeryC [address] [place] [address] PCP - General Physician Chief Safety Officer 12/27/20
--- OUTSIDE RECORDS SUMMARY | 2024-05-11 21:55 | XMS_ITS | Data Portability ---
Author Organization [facility], [id number] Address [address] [place] [address] Assessment No assessment recorded. Plan of Treatment Reminders Order Date Submit Date Provider Last Modified By Organization Details Last Modified Time Details Appointments None recorded. Lab test, urine 2019 020 [id number] , [address] [place] [address], [address], [place], [address], 0 14:02:19 Referral None recorded. Procedures None recorded. Surgeries hysteroscop y, with endometrial ablation (SURG) 2020 021 [email or web address] Not available 1 10:39:12 Imaging None recorded. Medication Orders None recorded. Patient TargetsNo targets recorded. Patient Instructions Encounter Date Encounter Id Patient Instructions Last Modified By Organization Details Last Modified Time 07/23/2020 [id number] premenstrual syndrome (PMS): care instructions [email or web address] Not available 07/23/2020 13:43:43 08/07/2020 [id number] Reviewed expecte d bleeding pattern after hormonal IUD placement and when to call the clinic. Encouraged scheduled ibuprofen x 24 hrs after placement. RTC in 1 mo for recheck. [email or web address] Not available 08/07/2020 12:06:34 Reason for Referral None Reported. Results Created Date Observation Date Name Description Value Unit Range Abnormal Flag Note LastModifiedBy Organization Detail LastModifiedTime 08/07/2020 pregn joleen test, urine Unknown Analyte negati ve Not Available [id number], [place], [address], 08/07/2020 11:03:51 Result Notes None recorded. Problems Name Problem SNOMED Code Status Onset Date Resolution Date Notes Provider Name and Address Organization Details Recorded Time Migraine 41272640 Active Orly Tipton (TERMED) null, [place] [facility] [place] 0 11:40:06 Hemorrhoids 82752588 Active Orly Tipton (TERMED) null, [facility] 0 11:40:20 Anemia 599821243 Active Orly Tipton (TERMED) null, [facility] 0 11:40:30 Anxiety 54411789 Active Orly Tipton (TERMED) null, [facility] 0 11:40:39 Depressive disorder 09511303 Active Orly Tipton (TERMED) null, [facility] 0 11:40:46 Problem Notes None recorded. Procedures Surgical History Date Name Laterality Status Provider Name and Address Organization Details Recorded Time 08/07/20 20 [facility]ion [facility] completed YVROSE CHERY, SELVIN- [address] [facility],[address], [place], [address], [facility] 08/07/2020 12:04:52 08/07/20 20 insertion of intrauterine contraceptive device completed Madison Ortiz [facility] 03/03/2021 09:36:06 07/12/20 20 Date of Last Pap Smear completed Orly Tipton (TERMED) [facility] 07/23/2020 11:42:36 06/05/20 20 Date of Last Mammogram completed Orly Tipton (TERMED) [facility] 07/23/2020 11:42:56 04/22/20 18 Date of Last Colonoscopy completed Orly Tipton (TERMED) [facility] 07/23/2020 11:43:27 hammer toe operation completed Orly Tipton (TERMED) [facility] 07/23/2020 11:44:01 Unlisted px accessory sinus completed Orly Tipton (TERMED) [facility] 07/23/2020 11:44:14 tarsal tunnel release completed Orly Tipton (TERMED) [facility] 07/23/2020 11:44:28 excision of cyst of ovary completed Orly Tipton (TERMED) [facility] 07/23/2020 11:44:39 release of trigger finger completed Orly Tipton (TERMED) [facility] 07/23/2020 11:45:12 Imaging Results None recorded. Procedure Notes None recorded. Medical Equipment None Reported. Allergies Allergen ID Allergen Name Allergen Category Reaction Reaction Severity Criticality Documentation Date Start Date Code Code System Note Provider Name and Address Organization Details Recorded Time 176872 acetamino phen / hydrocodo ne medicatio n itching Not available Not available 07/23/2020 95851 2 RxNorm Orly Tipton (TERMED) null, [facility] 0 11:39:24 [id number] Augmentin medicatio n diarrhea Not available Not available 07/23/2020 19981 2 RxNorm Orly Tipton (TERMED) null, [facility] 0 11:39:42 Medications Name Sig Start Date Stop Date Status Note LastModified by Organization Details LastModified Time cyclobenzap rine 10 mg tablet TAKE 1 TABLET BY MOUTH AT BEDTIME NEEDED active Not Available Not Available No t Available Mirena 21 mcg/24 hr (up to 8 years) 52 mg intrauterin e device Take by intrauter ine route. active Not Available Not Available No t Available azithromyci n 250 mg tablet TAKE 2 TABLETS BY MOUTH TODAY, THEN TAKE 1 TABLET DAILY FOR 4 MORE DAYS 03/03 completed Not Available Not Available Not Available metronidazo le 0.75 % (37.5 mg/5 gram) vaginal gel INSERT 1 APPLICATO RFUL VAGINALLY AT BEDTIME FOR 5 DAYS 03/03 completed Not Available Not Available Not Available ondansetron HCl 4 mg tablet Take 1 Tablet by mouth every 8 hours as needed for Nausea. active Not Available Not Available No t Available prednisone 20 mg tablet TAKE ONE TABLET BY MOUTH TWICE DAILY 03/03 completed Not Available Not Available Not Available acetaminoph en 300 mg-codeine 30 mg tablet TAKE 1-2 TABLETS BY MOUTH EVERY 4 HOURS NEEDED FOR DENTAL PAIN 07/23 completed Not Available Not Available Not Available ketorolac 30 mg/mL (1 mL) injection solution Inject 1 ml for intractab le migraine. Do not use more than 2 shots per month active Not Available Not Available No t Available trazodone 100 mg tablet TAKE 1-2 TABLETS AT BEDTIME. 07/23 completed Not Available Not Available Not Available meclizine 25 mg tablet Take 1 Tablet by mouth 4 times daily as needed for Dizziness /Vertigo. 03/03 completed Not Available Not Available Not Available cephalexin 500 mg capsule TAKE ONE CAPSULE BY MOUTH THREE TIMES DAILY 07/23 completed Not Available Not Available Not Available erythromyci n 5 mg/gram (0.5 %) eye ointment APPLY 1 RIBBON TO RIGHT EYE FOUR TIMES DAILY 07/23 completed Not Available Not Available Not Available mirtazapine 30 mg tablet take 1/2 tablet by mouth at night, may increase after 2 weeks to 1 tablet at night if anxiety/d epression are not improving 07/23 completed Not Available Not Available Not Available polymyxin B sulfate 10,000 unit-trimet hoprim 1 mg/mL eye drops instill 1-2 drops into affected eye every 3 hours 03/03 completed Not Available Not Available Not Available BD Luer-Zuleima Syringe 3 mL 25 gauge x 1 Use as directed with ketorolac injection s 03/03 completed Not Available Not Available Not Available mirtazapine 45 mg tablet TAKE 1 TABLET AT BEDTIME. 07/23 completed Not Available Not Available Not Available Botox 100 unit injection Take by injection route. active Not Available Not Available No t Available eletriptan 40 mg tablet TAKE 1 TABLET AT HEADACHE ONSET. MAY COMBINE WITH 2 ALEVE. MAY REPEAT IN 2 HOURS IF HEADACHES OVERTREAT active Not Available Not Available No t Available BD Regular Bevel Shedd 25 gauge x 1 1/2 Use as directed for ketorolac injection s 03/03 completed Not Available Not Available Not Available duloxetine 60 mg capsule,del ayed release TAKE 1 CAPSULE BY MOUTH TWICE DAILY active Not Available Not Available No t Available eszopiclone 3 mg tablet TAKE 1 TABLET BY MOUTH AT BEDTIME active Not Available Not Available No t Available pregabalin 200 mg capsule TAKE ONE CAPSULE BY MOUTH ONE TIME DAILY AT BEDTIME active Not Available Not Available No t Available Vitals Date Recorded Body weight Body mass index (BMI) Body height Systolic blood pressure Diastolic blood pressure Provider Name and Address Organization Details Last Updated DateTime 07/23/2020 70512.37 g 26.4 kg/m2 166.37 cm 110 mm[Hg] 80 mm[Hg] Orly Collins (TERMED) [facility] 0 11:33:17 Date Recorded Body height Body mass index (BMI) Body weight Systolic blood pressure Diastolic blood pressure Provider Name and Address Organization Details Last Updated DateTime 08/07/2020 166.37 cm 26.6 kg/m2 49188.68 g 118 mm[Hg] 76 mm[Hg] Mahin Jean (TERMED) [facility] 0 11:05:41 Date Recorded Body height Body mass index (BMI) Body weight Systolic blood pressure Diastolic blood pressure Provider Name and Address Organization Details Last Updated DateTime 03/03/2021 166.37 cm 27.6 kg/m2 39759.24 g 124 mm[Hg] 86 mm[Hg] Madison Ortiz [facility] 1 16:29:48 Social History Question Answer Notes LastModified by Organizat ion Details LastModified Time Tobacco Smoking Status Current Every Day Smoker Madison negron [facility] 03/03/2021 13:14:48 What Is Your Level Of Alcohol Consumption? Occasional 1dr/mo Information not available 03/03/2021 What Is Your Level Of Caffeine Consumption? Moderate 4c/day Information not available 03/03/2021 Marital Status Information not available 03/03/2021 How Much Tobacco Do You Smoke? 0.5 PPD Information not available 03/03/2021 Sex: Unknown Functional Status Question Answer Note LastModified by Organizat ion Details LastModified Time What is your exercise level? Occasional Information not available 03/03/2021 Mental Status None recorded. Family History Relationship Description Onset Age of this Age Resolved Age Notes LastModified by Organization Details LastModified Time Mother Malignant tumor of breast [email or web address] Not available 2019 11:34:59 Mother Diabetes mellitus [email or web address] Not available 2019 11:35:54 Maternal Grandmother Malignant tumor of breast Also her Great Grandm other Not available 07/23/2020 11:34:59 Maternal Grandmother Diabetes mellitus [email or web address] Not available 2019 11:35:54 Father Hypertensive disorder [email or web address] Not available 2019 11:36:19 Paternal Grandfather Hypertensive disorder [email or web address] Not available 2019 11:36:19 Paternal Grandfather Acute stroke Not available 07/23/2020 11:36:38 Paternal Grandfather Hypercholest erolemia [email or web address] Not available 2019 11:37:08 Medical History Condition Response GI- Hemorrhoids Y Psych- Depression Y Psych- Anxiety Disorder Y Hematology- Anemia Y Neurology- Headaches/Migraines Y ID-Other Y Gynecological History Statement/Question Response History of Abnormal PAP Y Age at Menarche: 16 Date of Last Mammogram 06/05/2020 Date of Last Colonoscopy 04/22/2018 Date of LMP 03/02/2021 History of Sexually Transmitted Infectio n Y Current Control Method Vasectomy Date of Last Pap Smear 07/12/2020 Date of Last Cholesterol Screening 04/23 Obstetrics History GPAL:G 3 P 2 0 1 2 Type Value Multiple Births 0 Full Term 2 Induced 0 Spontaneous 1 Premature 0 Living 2 Ectopics 0 Total 3 Past Encounters Encounter ID Performer Location Encounter Start Date Encounter Closed Date Diagnosis/Indication Diagnosis SNOMED-CT Code Diagnosis ICD10 Code [id number] KELLEY MONTEIRO MD [id number] [facility]_[address] ,[facility] [address] [place] [place] [id number] 07/23/2020 11:18:16 07/23/2020 13:07:19 Menorrhagia 349890773 N92.0 Perimenopa usal disorder 366637343 N95.9 [id number] [facility] [id number] [place] ,[address] [place] [id number] 08/07/2020 10:58:29 08/07/2020 11:50:51 Contraception care management 743277335 Z30.9 [id number] KELLEY MONTEIRO MD [id number] [facility]_[facility] [address] [facility] ,[address] [place] [id number] 03/03/2021 16:20:29 03/03/2021 17:39:04 Menorrhagia 194141016 N92.0 Health Concerns Section Related Observation LastModified by Organization Detai ls LastModified Time None Recorded Concern Status LastModified by Organization Details LastModified Time None Recorded Advance Directives Directive None Recorded Payers Encounter Date Sequence Insurance Name Policy Number Policy Wilson Covered Member ID Wilson Member ID Guarantor Name 07/23/2020 1 [place] [facility] Madison Mark [id number] Madison Flores 08/07/2020 1 [place] [facility] Madison Flores [id number] Madison Flores 03/03/2021 1 [place] [facility] Madison Mark [id number] Madison Rosa Flores Notes Date Note Type Note Provider Name and Address Organization Details Recorded Time 07/23/2020 text/html HPI Notes: Pt hdz ving heavy irregular periods and irritability. She had an FSH recently and it was in the 32.2(04/23/20. She has had about 8 periods in the last year. Her periods require a super tampon to be changed every 2 hours for the first two days. She had a Mirena IUD until 5 years ago. She noted that since the IUD was removed she has had weight gain, more irritability, and heavier periods. She can not use estrogen products per her mother's oncologist. Her mother had breast cancer. HEr mother declines genetic testing but her sister did test positive for BRCA2. Pt has seen a genetic counselor and is waiting to see if the testing will be covered. Pt is already on [place] [address] [facility],[address], [place], [address], [place] [facility] 07/23/2020 13:52:34 08/07/2020 text/html HPI Notes: Hailey nt here for IUD insertion. YVROSE CHERY, [facility] [address] [facility],[address], [place], [address], [place] [facility] 08/07/2020 12:07:05 03/03/2021 text/html HPI Notes: Abnor mal Bleeding ([facility]C) Reported by patient. Patient Relationship with Practice: established patient Presents for: a follow up evaluation Reason for visit: cyclical heavy bleeding; abnormal pattern bleeding Abnormal bleeding has been present for: days Contraceptive Method: IUD: levonorgestrel containing IUD- 5 YR; vasectomy Diagnostic Testing: PAP smear up to date: up-to-date; ultrasound and/or SIUS; Pt had an US in [place]. The EC is 8 mm and the IUD is in the correct position. The ovaries are normal. There is a small fibroid, <2 cm. Pt has noted her periods continue to be heavy changing a super tampon every 2 hours. She has also noted spotting mostly after intercourse. She previously did well with the Mirena IUD. See is tired of dealing with the bleeding and she would like a solution[place] [address] [facility],[address], [place], [address], [place] - [facility] 03/03/2021 17:32:47 OBGyn Episode Ob Episode Information Episode Created Date Number of Fetuses Patient Bloodtype Patient rh Status Prepregnancy Weight lbs Domestic Partner Domestic Partner Phone Father Name Home Care Physical Therapist Status 07/23/20 20 1 CLOSED Fetus Data First Name Last Name Admitted to NICU Weight (g) Sex Living Outcome Pediatric Complications Fetus ID Race Codes Race Delivery Type 3543.46 0704 F Full Term [id number] Antione Calculation Initial Antione Date Initial Exam Date Initial Exam Provider Initial Ultrasound Date Last Menstrual Period Date Ultra Sound Weeks Gestation 0 Eighteen To Twenty Week Antione Update Ultra Sound Date Fundal Height At Umbil Quickening Date Ultra Sound Latest Weeks Gestation Final Antione Confirmed By Final Antione Confirmed Date Final Antione Date Ultra Sound Latest Days Gestation 0 0 Menstrual History Last Menstrual Date Menses Monthly On Bcp Conception Prior Menses Frequency Hcg Plus Date Menarche Onset Age Delivery Information Delivery Date Delivery Type Labor Anesthesia Weeks Gestation Incision Type Labor Labor Length Hrs Delivered By Post Complications Tubal Sterilization Discharge Date Comments 4 None 40 Discharge Information Feeding Method Contraceptive Method Maternal HG B and HCT Levels Ob Episode Information Episode Created Date Number of Fetuses Patient Bloodtype Patient rh Status Prepregnancy Weight lbs Domestic Partner Domestic Partner Phone Father Name Home Care Physical Therapist Status 07/23/20 20 1 CLOSED Fetus Data First Name Last Name Admitted to NICU Weight (g) Sex Living Outcome Pediatric Complications Fetus ID Race Codes Race Delivery Type 3345.24 1 F Full Term [id number] Antione Calculation Initial Antione Date Initial Exam Date Initial Exam Provider Initial Ultrasound Date Last Menstrual Period Date Ultra Sound Weeks Gestation 0 Eighteen To Twenty Week Antione Update Ultra Sound Date Fundal Height At Umbil Quickening Date Ultra Sound Latest Weeks Gestation Final Antione Confirmed By Final Antione Confirmed Date Final Antione Date Ultra Sound Latest Days Gestation 0 0 Menstrual History Last Menstrual Date Menses Monthly On Bcp Conception Prior Menses Frequency Hcg Plus Date Menarche Onset Age Delivery Information Delivery Date Delivery Type Labor Anesthesia Weeks Gestation Incision Type Labor Labor Length Hrs Delivered By Post Complications Tubal Sterilization Discharge Date Comments 7 None 42 Discharge Information Feeding Method Contraceptive Method Maternal HG B and HCT Levels
--- OUTSIDE RECORDS SUMMARY | 2024-05-11 21:56 | XMS_ITS | Clinical Summary ---
Author Organization [facility] Address [place], [place] [address] Care Team Providers Care Wood Flooring Specialist Name Role Phone Angy Guillory DO Primary Care Provider [phone] Allergies Active Allergy Reactions Criticality Noted Date Comments Amoxicillin-Pot Clavulanate Diarrhea,GI Upset 01/13/2016 Iodine *Unknown 04/11/2010 PN: LW Reaction: Unknown Reaction Morphine Itching 12/27/2020 Hydrocodone-Acetaminophe n Itching 01/13/2016 Medications Medication Sig Dispensed Refills Start Date End Date Status RELPAX 40 mg tablet 5 11/19/2015 Activ e Ventolin HFA 90 mcg/actuation inhaler Inhale 2 Puffs by mouth every 4 hours if needed. 02/06/2022 Active desvenlafaxine succinate (PRISTIQ) 100 mg extended release tablet Take 1 Tablet (100 mg) by mouth once daily as directed. 90 Tablet 08/26/2023 Active methylphenidate 18 mg extended-release tablet Take 36 mg by mouth once daily. 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 20 Tablet 12/28/2023 Active pregabalin (LYRICA) 100 mg capsuleIndications:Fib romyalgia Take 1 Capsule (100 mg) by mouth two times daily. 180 Capsule 3 12/28/2023 Active cyclobenzaprine (FLEXERIL) 10 mg tabletIndications:Fibr omyalgia Take 1 Tablet (10 mg) by mouth once daily. 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 30 Tablet 12/28/2023 Active eszopiclone (LUNESTA) 3 mg tabletIndications:Psyc hophysiological insomnia Take 1 Tablet (3 mg) by mouth at bedtime. 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 Periodic limb movement disorder 06/08/2018 Restless leg syndrome 06/08/2018 Chronic migraine without aur a, with intractable migraine, so stated, with status migrainosus 03/23/2016 Abnormal glandular Papanicolaou smear of cervix 04/06/2005 Overview (11/26/2023): LW Modifier: LEEP LW Onset: 07/26 ; Pap Smear Abnormal Endocervix Contraceptive management 04/06/2005 Overview (11/26/2023): Contraceptive Management NOS Follicular cyst of ovary 04/06/2005 Overview (11/26/2023): LW Onset: 1997 ; Cyst Ovarian Follicular Encounters Date Type Department Care Team Description 03/07/2024 4:15 PM CDT Office Visit [facility] [address] [place] [address] Mackenzie Magaña PA Neck Pain/problem 03/07/2024 Travel from Last 3 Months Immunizations Name Administration Dates Next Due Hepatitis A (Adult) 03/29/2009,06/20/2008 Hepatitis B (Adult) 03/17/1999,12/13/1997,1997 Influenza Intradermal PF 18-64 yrs 06/17/2012 Influenza Virus, Unspecified 06/17/2009, 06/17/2009,05/21/2004,2003 Influenza, IIV3 (Age >=3 years) 08/03/2018,06/20,08/09/2007 Influenza, IIV4 05/06/2023, 2,05/23/2021,2016,05/14/2016 Influenza, IIV4 (=>6mos) MDV 07/17/2019 Pneumococcal Poly,23-Valent (Pneumovax) 08/26/2010 Td (Age >=7 Years) 03/31/1993 Td, Preservative Free (age > = 7 Years) 12/29/2016 Tdap 06/19/2008 Social History Tobacco Use Types Packs/Day Years Used Date Smoking Tobacco: Every Day Passive Smoke Exposure: Current Smokeless Tobacco: Never Tobacco Cessation:Ready to Q uit: Not Asked; Counseling Given: Not Answered Alcohol Use Standard Drinks/Week Comments Not Currently 0 (1 standard drink = 0.6 oz pur e alcohol) rare PHQ-2 Answer Date Recorded PHQ-2 TOTAL SCORE 5 01/28/2024 Social Connections Answer Date Recorded Frequency of Communication with Friends and Fami ly 0 11/09/2023 Financial Resource Strain Answer Date R ecorded Difficulty of Paying Living Expenses 3 11/09/2023 Difficulty of Paying Living Expenses Not on file 11/09/2023 Food Insecurity Answer Date Recorded Worried About Running Out of Food in the Last Ye ar 1 11/09/2023 Transportation Needs Answer Date Record ed Lack of Transportation (Medical) 1 11/09/2023 Housing Stability Answer Date Recorded Unable to Pay for Housing in the Last Year 1 11/09/2023 Sex and Gender Information Value Date Recorded Sex Assigned at Not on file Gender Identity Not on file Sexual Orientation Not on file Obstetrics History Last Filed Vital Signs Vital Sign Reading Time Taken Comments Blood Pressure 125/85 03/07/2024 3:44 PM CDT Pulse 79 03/07/2024 3:44 PM CDT Temperature 36.1 ??C (97 ??F) 11/26/2023 5:44 PM CDT Respiratory Rate 18 11/26/2023 5:44 PM CDT Oxygen Saturation 100% 03/07/2024 3:44 PM CDT Inhaled Oxygen Concentration - - Weight 75 kg (165 lb 6.4 oz) 01/28/2024 10:08 AM CDT Height 165.1 cm (5' 5) 11/26/2023 5:44 PM CDT Body Mass Index 27.52 11/26/2023 5:44 PM CDT Plan of Treatment Health Maintenance Due Date Last Done Comments HIV for age 15-65 1992 Hepatitis C screening for ag e 18-79 1995 Pneumococcal series for age 6-64 (2 of 2 - PCV) 08/26/2011 08/26/2010 BMI (ht and wt on same day) for age 18+ 01/12/2017 01/13/2016 Colonoscopy through age 75 2022 Lipids for age 45-75 2022 Mammogram for age 45-75 2022 Pap test for age 21-65 07/12/2023 07/12/2020, 2019 COVID-19 vaccine series (2022- season) 2024 08/26/2021, 01/21/2021 Influenza for age 9-49 04/23/2024 3, 05/20/2022, 05/23/2021, Additional history exists Depression screening for age 12+ 01/27/2025 01/28/20 24 Tetanus booster 12/29/2026 12/29/2016, 05/24, 03/31/1993 Tdap Completed 06/19/2008 Procedures Procedure Name Priority Date/Time Associated Diagnosis Comments ART LIBRARIAN THIN PREP PAP SCREEN IMAGED Routine 07/12/2020 3:15 PM DINING SERVICES MANAGER from Last 3 Months or Most Recently Relevant to Health Maintenance Results * ART LIBRARIAN THIN PREP PAP SCREEN IMAGED (07/12/2020 3:15 PM DINING SERVICES MANAGER) Case Report Gynecologic Cytology Report ? Case: [id number] ? Authorizing Provider: ??Rivera, Mukti B, PA-C ? Collected: ? 07/12/2020 1515 ? Ordering Location: ? [facility] ?Received: ?07/15/2020 1725 ? First Screen: ?Julienne Brunson ? Pathologist: ? Radha Moy MD ? Specimen: ?ART LIBRARIAN ThinPrep Vial Screening, Cervical/Vaginal ? 07/24/2020 7:31 AM [facility] INTERPRETATION/ RESULT NEGATIVE FOR INTRAEPITHELIAL LESION OR MALIGNANCY (NIL) (none) 07/24/2020 7:31 AM [facility] R NON-NEOPLASTIC FINDING(S) Hyperkeratosis 07/24/2020 7:31 AM [facility] ORGANISM(S) Shift in magnus suggestive of bacterial vaginosis 07/24/2020 7:31 AM [facility] SPECIMEN ADEQUACY Satisfactory for evaluation No endocervical component seen 07/24/2020 7:31 AM [facility] HPV REQUEST HPV and PAP 07/24/2020 7:31 AM [facility] Date of LMP 06/20/2020 07/24/2020 7:31 AM [facility] Last Pap Result NIL 0 7:31 AM [facility] Additional Information 07/24/2020 7:31 AM [facility] Comment: Interpreted at [facility] - [address], [place] [address] Automated Review Successful 07/24/2020 7:31 AM [facility] Comment:Specimen processed s uccessfully by automated specialty plant supervisor device, ThinPrep Imaging System, [email or web address] ANCILLARY TESTING ART LIBRARIAN HPV Ordered, Please see separate report 07/24/2020 7:31 AM [facility] Note The pap test is a screening technique, not a diagnostic procedure. It is used primarily to screen for squamous cancers and precursor lesions. Published studies have shown that it is subject to both false negative and false positive results. The pap test should not be used as the sole means to diagnose or exclude pre-malignant and malignant lesions. 07/24/2020 7:31 AM [facility] Other (Cervical/Vagina l) 07/12/2020 3:15 PM DINING SERVICES MANAGER 07/15/2020 5:25 PM DINING SERVICES MANAGER Bessy Rivera PA-C PATHOLOGY/CYTOLOGY [facility] [address] [place] [address], [place] from Last 3 Months or Most Recently Relevant to Health Maintenance Care Teams Wood Flooring Specialist Relationship Specialty Start Date End Date Angy Guillory DO [address] [place] [address] PCP - General Family Practice 09/29/23
[2024-05-11] MEDS: HYDROmorphone 0.5 mg/0.5 ml inj IVP (22:17)
== END 2024-05-11 22:31 | disposition home or self-care (01) ==
LOC: ED 21:53
PROVIDERS: Emergency Provider Internal Medicine; PCP Family Medicine
DX: R51.9 Headache, unspecified (principal); K08.89 Other specified disorders of teeth and supporting structures
CPT/HCPCS: 85025; 96374; 96375; 99283; J1170; J1200; J1885; J2405; J7030

== ENCOUNTER 2024-05-14 16:40 | Emergency (ER) | payer BC, SELFPAY ==
[2024-05-14 16:49] VITALS: BP 137/80; PULSE 81; RESP 18; TEMP 36.2; O2SAT 99; BMI 28.3
--- NOTE | 2024-05-14 17:17 | ED.GENADULT ---
HPI - General Adult General Date Seen: 05/14/24 Chief complaint: Dental/Oral/Mouth Injury/Pain Stated complaint: Tooth infection, nausea Time Seen by Provider: 05/14/24 17:02 History of Present Illness HPI narrative: 49-year-old female with a past medical history of migraine headaches, anxiety/depression, fibromyalgia and recent dental extraction presenting to the ER today with pain involving her left jaw and left lower facial under her chin. History is obtained in part from the patient and supplemented by her adult daughter. She has a history of multiple previous dental infections and dental extractions including her left mandibular wisdom tooth and posterior molar. She has had known either a dental fracture or caries in her mandibular molar (tooth 19.). She began having pain in that tooth last Wednesday, 6 days ago. He was getting worsen affecting her left jaw on the left lower side of her cheek. She was in the ER here in [place] 3 days ago on . She was put on amoxicillin. She had worsening pain so she saw an emergency dentist 2 days ago on Wednesday and had that tooth extracted. Since about she has had a lot of nausea and vomiting so she has not been able at drink or eat much. She has not been able to take her antibiotics. She came to the ER today because she has worsening pain in her left jaw (not really directly in the socket) and so much nausea and vomiting she is not staying hydrated. She says she feels awful and worse than when she was septic from a cat bite. She has had some chills but no objective fevers. No abdominal pain. No back pain. No cough. No headache. No ear pain. She does not have any swelling of her face or jaw. Incidentally she also notes that she was bit on the dorsum of her right hand by her cat last night. She is developing a small 1 cm area of erythema around the cat bite. No other discomfort in her hand. No trouble moving her fingers. Related Data Home Medications ?Medication ?Instructions ?Recorded ?Confirmed lurasidone 20 mg tablet 20 mg PO QPM 12/01/22 05/20/23 albuterol 90 mcg/actuation aerosol See Rx Instructions inhalation 04/24/23 05/20/23 inhaler .COMPLEX amoxicillin 500 mg capsule 500 mg PO 3XD 04/24/23 05/20/23 eletriptan 40 mg tablet See Rx Instructions .Route PRN 04/24/23 05/20/23 hydrocodone 5 mg-acetaminophen 325 1 tab PO Q4-6H pain 04/24/23 05/20/23 mg tablet ketorolac 10 mg tablet See Rx Instructions .Route .COMPLEX 04/24/23 05/20/23 ondansetron HCl 4 mg tablet 4 mg PO Q6H PRN 04/24/23 05/20/23 desvenlafaxine succinate 100 mg 100 mg PO DAILY 05/20/23 05/20/23 tablet,extended release 24 hr desvenlafaxine succinate 25 mg 25 mg PO DAILY 05/20/23 05/20/23 tablet,extended release 24 hr Previous Rx's ?Medication ?Instructions ?Recorded pregabalin 200 mg capsule (Lyrica) 200 mg PO .QHS #90 caps 01/05/23 eletriptan 20 mg tablet (Relpax) 20 mg PO Q2-4H PRN migraine 05/20/23 headache #20 tabs ketorolac 10 mg tablet 10 mg PO Q8H 5 days #15 tabs 05/20/23 cyclobenzaprine 10 mg tablet 10 mg PO QPM PRN for muscle spasm 06/21/23 #30 tabs eszopiclone 3 mg tablet 3 mg PO QHS #30 tabs 08/12/23 cefuroxime axetil 500 mg tablet 500 mg PO BID 7 days #14 tabs 05/14/24 metronidazole 500 mg tablet 500 mg PO TID 7 days #21 tabs 05/14/24 Allergies Allergy/AdvReac Type Severity Reaction Status Date / Time iodine Allergy Mild itching Verified 05/11/24 21:22 hydrocodone AdvReac Mild systemic Verified 05/11/24 21:22 itching, vomiting shellfish Allergy Intermediate Uncoded 05/20/23 16:04 Clavulanate AdvReac Mild Diarrhea Uncoded 12/01/22 14:41 PFSH PFSH Medical History Hemorrhoids ?K64.9 - Unspecified hemorrhoids (ICD-10) Surgical History History of colonoscopy ?Z98.890 - Other specified postprocedural states (ICD-10) History of third molar tooth extraction ?K08.409 - Partial loss of teeth, unspecified cause, unspecified class (ICD-10) History of sinus surgery ?Z98.890 - Other specified postprocedural states (ICD-10) History of ovarian cystectomy ?Z98.890 - Other specified postprocedural states (ICD-10) ?Z87.42 - Personal history of other diseases of the female genital tract (ICD-10) History of hemorrhoidectomy ?Z98.890 - Other specified postprocedural states (ICD-10) History of hammer toe correction ?Z98.890 - Other specified postprocedural states (ICD-10) ?Z87.39 - Personal history of other diseases of the musculoskeletal system and connective tissue (ICD-10) Family History Mother Breast cancer Other Colon cancer Diabetes Heart disease Stroke Social History Narrative: smoker Smoking Status: Current every day smoker How often do you have a drink containing alcohol: never AUDIT-C Alcohol total score: 0 Non-prescribed substance use: denies use Little interest or pleasure in doing things: more than half the days Feeling down, depressed, or hopeless: nearly every day service: No Exam Narrative: Exam Narrative: Constitutional: Appears well-developed and well-nourished. Alert. Able to speak full sentences but looks uncomfortable. Initially worried, bordering on tears. Daughter and granddaughter are tentatively at her side. HENT: Head: Atraumatic. Nose: Nose normal. Mouth/Throat: Oral mucosa is clear and moist. no trismus. No submandibular swelling. Pharynx normal. Tongue normal. Tonsils symmetric. No tonsillar enlargement, erythema, or exudate. She is status post extraction of her left mandibular molars. She does have a socket from the tooth 19. The socket looks good. No purulent drainage. No surrounding erythema. Eyes: Conjunctivae normal. EOM normal. Pupils equal, round, and reactive to light. No scleral icterus. Neck: Normal range of motion. Neck supple. No tracheal deviation present. No cervical adenopathy. Cardiovascular: Normal rate, regular rhythm. No gallop. No friction rub. No murmur heard. Symmetric radial artery pulses Pulmonary/Chest: Effort normal. No stridor. No respiratory distress. No wheezes. No rales. No rhonchi . No tenderness. Musculoskeletal: RUE: Normal range of motion. No tenderness. No deformity. She has a small puncture wound on the dorsum of her right hand in between the 2nd and 3rd MCP joints surrounded by small 1-2 cm area of erythema. No fluctuance. Normal flexion and extension of the fingers. Suspicious for possible early evolving hand cellulitis. LUE: Normal range of motion. No tenderness. No deformity RLE: Normal range of motion. No edema. No tenderness. No deformity LLE: Normal range of motion. No edema. No tenderness. No deformity Lymph: No cervical adenopathy. Neurological: Alert and oriented to person, place, and time. Normal strength. CN II-VII intact. No sensory deficit. GCS eye subscore is 4. GCS verbal subscore is 5. GCS motor subscore is 6. Normal coordination Skin: Skin is warm and dry. No rash noted. No pallor. Normal capillary refill. Psychiatric: Normal mood. Normal affect. Const: Vital Signs, click to edit/add: Vital Signs - 24 hr 05/14/24 16:49 05/14/24 19:24 05/14/24 20:05 Temperature 97.2 F L Pulse Rate [Right Pulse Oximeter] 81 75 74 Respiratory Rate 18 20 20 Blood Pressure [Ri ght Upper Arm] 137/80 130/86 127/98 H Pulse Oximetry 99 99 100 Oxygen Delivery Me thod Room Air Room Air Room Air Course Course ED Course: Recheck-. Labs back. White count and CRP reassuring. Potassium low. Bicarb low suggesting dehydration which fits with her clinical presentation of nausea for the past several days. Endorses epigastric abdominal pain that began after she got Reglan. Repeat exam reveals bilateral upper tenderness but no guarding. No Linares sign. No lower tenderness or right lower quadrant tenderness. She is thirsty. Provided with water to try p.o. challenge. Reevaluation(s) Reevaluation #1: Recheck. Doing much better. Tolerating p.o.. She now mentions that she had a cat bite on her right hand yesterday. I evaluated and there is a small area of redness there concerning for a possible evolving infection. Will start on antibiotics. First dose given here in the ER. She is feeling comfortable discharging to home. Vital Signs Vital signs: Initial Vital Signs Temperature 97.2 F L 05/14/24 16:49 Temperature Source Temporal Artery Scan 05/14/24 16:49 Pulse Rate 81 05/14/24 16:49 Respiratory Rate 18 05/14/24 16:49 Blood Pressure 137/80 05/14/24 16:49 Blood Pressure Mean 99 05/14/24 16:49 Blood Pressure Position Sitting 05/14/24 16:49 Pulse Oximetry 99 05/14/24 16:49 Oxygen Delivery Method Room Air 05/14/24 16:49 Vital Signs Temperature 97.2 F L 05/14/24 16:49 Pulse Rate 81 05/14/24 16:49 Respiratory Rate 18 05/14/24 16:49 Blood Pressure 137/80 05/14/24 16:49 Pulse Oximetry 99 05/14/24 16:49 Oxygen Delivery Method Room Air 05/14/24 16:49 Temperature 97.2 F L 05/14/24 16:49 Pulse Rate 74 05/14/24 20:05 Respiratory Rate 20 05/14/24 20:05 Blood Pressure 127/98 H 05/14/24 20:05 Pulse Oximetry 100 05/14/24 20:05 Oxygen Delivery Method Room Air 05/14/24 20:05 Medications Administered Medications: Discontinued Medications Generic Name Dose Route Start Last Admin Trade Name Freq PRN Reason Stop Dose Admin Cefuroxime Axetil 500 mg 05/14/24 19:39 05/14/24 20:01 Cefuroxime Axetil 500 Mg Tablet PO 05/14/24 19:40 500 mg ONCE ONE Administration Diphenhydramine HCl 12.5 mg 05/14/24 17:23 05/14/24 17:41 Diphenhydramine 50 Mg/Ml Inj IVP 05/14/24 17:24 12.5 mg ONCE ONE Administration Sodium Chloride 1,000 mls @ 1,000 mls/hr 05/14/24 17:30 05/14/24 19:26 0.9 % Sodium Chloride 1000 Ml IV 05/14/24 18:29 Infused .Q1H MIQUEL Infusion Ketorolac Tromethamine 15 mg 05/14/24 17:23 05/14/24 17:40 Ketorolac 15 Mg/Ml Inj IVP 05/14/24 17:24 15 mg ONCE ONE Administration Metoclopramide HCl 10 mg 05/14/24 17:23 05/14/24 17:41 Metoclopramide Hcl 5 Mg/Ml Inj IVP 05/14/24 17:24 10 mg ONCE ONE Administration Metronidazole 500 mg 05/14/24 19:39 05/14/24 20:01 Metronidazole 500 Mg Tablet PO 05/14/24 19:40 500 mg ONCE ONE Administration Medical Decision Making MDM Narrative Medical decision making narrative: 49-year-old female with a complex presentation to the ER. First, she notes that she has been having trouble with an infection in her left mandibular molar that beginning with pain last week. She had her molar extracted at the emergency dentist 2 days ago. She is already supposed to be on antibiotics for that tooth, prescribed in the ER on , amoxicillin. However she has not been able take the antibiotics for couple of days because she has had nausea and vomiting. On my evaluation she does have some tenderness on her left lateral jaw but no erythema or swelling of her cheek. No evidence for a buccal space abscess. No trismus. No submandibular swelling to suggest an evolving Jeronimo's angina or submandibular abscess. At this point her airway is definitively patent. I do not think she needs CT imaging to evaluate for abscess. Intraorally she does have what appears to be healing socket from the tooth extraction. Pain is not really suggestive for dry socket at this point. She is not really here because her tooth is hurting, but more she is just too nauseous to take her antibiotics. In terms of her nausea she does have upper abdominal pain. Symptoms are resolved after nausea meds given here in the ER. At this point I do not think she needs CT imaging or gallbladder ultrasound. Overall abdominal exam is benign. Laboratory workup shows a reassuring white count. She does have hypokalemia and low bicarb which would be consistent with dehydration and vomiting. Incidentally, after she was here in the ER for a couple of hours, she notes that she has a small reddened area on the dorsum of her right hand between the 2nd and 3rd metacarpals from a cat bite that occurred yesterday. I do think this could be indicative of a possible small early cellulitis developing. At this point I do not detect any evidence for abscess in the hand or any need for surgical debridement. Will start the patient on antibiotics to cover her cat bite. She has an allergy (predominantly GI upset) from Augmentin so that would be relatively contraindicated. Will have her discontinue her current amoxicillin and switch to a second-line combination of antibiotics with cefuroxime and metronidazole (as per up to date). First dose of these antibiotics were administered successfully here in the ER. Prescription to her pharmacy provided. Lab Data Labs: Lab Results 05/14/24 Range/Units 17:51 WBC 7.82 (4.50-11.00) K/uL RBC 4.45 (4.00-5.20) m/uL Hgb 13.9 (12.0-16.0) gm/dL Hct 41.5 (33.0-51.0) % MCV 93 (80-100) fL MCH 31 (26-34) pg MCHC 34 (32-36) gm/dL RDW Coeff of Greg 12.8 (11.5-15.5) % Plt Count 184 (140-440) K/uL Neut % (Auto) 71.2 (42.0-72.0) % Lymph % (Auto) 20.7 (20-44) % [place] % (Auto) 7.9 (0.0-11.0) % Eos % (Auto) 0.0 (0.0-7.0) % Baso % (Auto) 0.1 (0.0-3.0) % Neut # (Auto) 5.56 (1.7-7.0) K/uL Lymph # (Auto) 1.62 (0.90-2.90) K/uL [place] # (Auto) 0.60 (0.00-0.90) K/UL Eos # (Auto) 0.00 (0.00-0.50) K/uL Baso # (Auto) 0.01 (0.00-0.30) K/uL Abs Immat Gran (auto) 0.01 (0.00-0.30) K/uL Imm/Tot Granulo (auto) 0.1 % Sodium 139 (135-149) mmol/L Potassium 3.1 L (3.6-5.1) mmol/L Chloride 111 (96-114) mmol/L Carbon Dioxide 17 L (20-32) mmol/L Anion Gap 11 (7-15) mEq/L BUN 17 (5-24) mg/dL Creatinine 0.7 (0.5-1.5) mg/dL Estimated Creat Clear 89.40 Estimated GFR 107 ml/min Glucose 104 (60-115) mg/dL Lactate 1.2 (0.5-1.9) mmol/L Calcium 9.4 (8.4-10.6) mg/dL Discharge Plan Discharge Clinical Impression: Cat bite involving extremity, Dental infection, Vomiting, Dehydration Patient Disposition: Home, Self-Care Condition: Stable Instructions: Animal Bite (ED), Dental Abscess (ED), Acute Nausea and Vomiting (DC) Additional Instructions: As we discussed, we will change her antibiotics. Stop the amoxicillin. Start the 2 new antibiotics (cefuroxime 2 times daily and metronidazole 3 times daily). These 2 antibiotics will treat the infection in your right hand from her cat bite and also will treat dental infections. Monitor your areas of infection carefully and if you are having new fevers, worsening weakness, worsening swelling under your jaw or of your face or under your chin or worsening swelling or redness of your hand, please see your doctor or come back to the ER right away Please recheck with your regular doctor within 48-72 hours. Prescriptions: New cefuroxime axetil 500 mg tablet 500 mg PO BID 7 Days Qty: 14 0RF metronidazole 500 mg tablet 500 mg PO TID 7 Days Qty: 21 0RF No Action lurasidone 20 mg tablet 20 mg PO QPM amoxicillin 500 mg capsule 500 mg PO 3XD hydrocodone-acetaminophen 5-325 mg tablet 1 tab PO Q4-6H ondansetron HCl 4 mg tablet 4 mg PO Q6H PRN ketorolac 10 mg tablet See Rx Instructions .ROUTE .COMPLEX Rx Instructions: has script albuterol 90 mcg/actuation aerosol See Rx Instructions INHALATION .COMPLEX Rx Instructions: inhaled; eletriptan 40 mg tablet See Rx Instructions .ROUTE PRN Rx Instructions: as needed; TAKE ONE TAB AT ONSET OF HEADACHE, MAY REPEAT AFTER 2 HOURS IF HEADACHE RETURNS desvenlafaxine succinate 100 mg tablet extended release 24 hr 100 mg PO DAILY desvenlafaxine succinate 25 mg tablet extended release 24 hr 25 mg PO DAILY eletriptan [Relpax] 20 mg tablet 20 mg PO Q2-4H PRN (Reason: migraine headache) Qty: 20 1RF Rx Instructions: do not exceed 4 doses per 24 hrs ketorolac 10 mg tablet 10 mg PO Q8H 5 Days Qty: 15 0RF pregabalin [Lyrica] 200 mg capsule 200 mg PO .QHS Qty: 90 1RF cyclobenzaprine 10 mg tablet 10 mg PO QPM PRN (Reason: for muscle spasm) Qty: 30 3RF eszopiclone 3 mg tablet 3 mg PO QHS Qty: 30 0RF Follow Up/Referrals: Angy Guillory DO [Primary Care Provider] - Stand Alone Forms: [facility] Inst[facility]
--- OUTSIDE RECORDS SUMMARY | 2024-05-14 17:31 | XMS_ITS | Clinical Summary ---
Author [facility] Address [address] [place] [address] Care Team Providers Care Transportation Assistant Name Role Phone Bessy Rivera PA-C Primary Care Provider [phone] Source Comments You are receiving this document as you are listed as the primary care provider,follow-up provider, or the patient has been referred to you for consultation.This is in compliance with the Medicare and[facility] Hospitalca[facility] EHR Incentive Program,which states Providers who transition their patient to another setting of careor provider of care or refers their patient to another provider of care shouldprovide summary care record for each transition of care or referral. [facility] Allergies Active Allergy Reactions Criticality Noted Date [...] series) 03/17/1999,12/13/1997,10/31/1997 Influenza IIV4 (Quadrivalent ) 0.5mL (64626) 05/20/2022,05/20/2022,05/23/2021,2016,05/14/2016 Influenza, Unspecified Formulation 06/17/2009, Mary COVID-19 [...] CDT HIV ANTIBODY Routine 11/23/2003 9:52 AM SHIP[employer]S CAPTAIN from Last 3 Months or Most Recently Relevant to Health Maintenance Results * Pap Smear (04/11/2010 9:36 AM CDT) Pap Smear SEE TEXT No normal range HP CONVERSION Comment: Final GYNECOLOGICAL CYTOLOGY REPORT Pathology #: [id number] ?Date Obtained: 04/11/2010 ? Date Received: 04/14/2010 [...] CONVERSION * HIV Antibody (11/23/2003 9:52 AM SHIP'S CAPTAIN) Pathologist [facility] HIV 1/HIV 2 Non Reac Non Reac HP CONVERSION 11/23/2003 9:52 AM [employer]S CAPTAIN Preeti Cano APRN, [facility] HP CONVERSION from Last 3 Months or Most Recently Relevant to Health Maintenance Care Teams Transportation Assistant Relationship Specialty Start Date End Date Bessy Rivera, PAValeryC [address] [place] [address] PCP - General Physician Right Of Way Cutter 12/27/20
--- OUTSIDE RECORDS SUMMARY | 2024-05-14 17:31 | XMS_ITS | Continuity of Care Document ---
Author Organization Anil [facility] Address [address] [place] [address] Phone Care Team Providers Care Electronic Warfare Technician Name Role Phone Tripp PT PT, [place] [...] Providers Copied on Encounter TALA Ma, [address], [id number], tel:[phone] [facility] 7390 No Information [facility] [place]. [address] [place], [place], [id number], [place]. tel:[phone] Referring Provider: Christopher Horner, [address] [place], [address]. tel:[phone] TALA Ma, [address], [place], [id number], tel:[phone] [facility] 7[address] No Information [facility] [place]. [address] [place], [place], [id number], . tel:[phone] Referring Provider: Christopher Horner, [address] [place], [address]. tel:[phone] TALA Ma, [address], [place], [place], [id number], [place] tel:[phone] Tiffanie Mchugha [facility] 7390 No Information 6 [facility] [place]. [address], [place], [place], [id number], [place]. tel:[phone] Referring Provider: Christopher Horner, [address], [place], [address]. tel:[phone] [facility], [address], [place], [place], [id number], [place] tel:[phone] Tiffanie Mchugha [facility] 7390 No Information 6 [facility] [place]. [address], [place], [place], [id number], [place]. tel:[phone] Referring Provider: Christopher Horner, [address], [place], [address]. tel:[phone] [facility], [address], [place], [address], [place] tel:[phone] [facility] Spondylosis without myelopathy or radiculopathy, lumbar regionSpondylo sis without myelopathy or radiculopathy, lumbosacral regionOther intervertebral disc degeneration, lumbar regionLow back pain 6 Saida Sage. [address], [place], [place], [id number], [place]. tel:[phone] Referring Provider: Chu Dick, [address], [place], [address] . tel:[phone] Anil, [facility], [address], [place], [place], [id number], [place] tel:[phone] [facility] No Information 6 Saida Sage. [address], [place], [place], [id number], [place]. tel:[phone] Referring Provider: Chu Dick, [address], [place], [address] . tel:[phone] Anil, [facility], [address], [place], [place], [id number], [place] tel:[phone] [facility] 7390 No Information [facility] [place]. [address], [place], [place], [id number], [place]. tel:[phone] Referring Provider: Christopher Horner, [address], [place], [address]. tel:[phone] New Pt Eval 45 Min Anil, [facility], [address], [place], [place], [id number], [place] tel:[phone] [facility] Other intervertebral disc degeneration, lumbar regionOther intervertebral disc displacement, lumbosacral regionLesion of sciatic nerve, right lower limbSacroiliit is, not elsewhere classified No Information Referring Provider: Christopher Horner, [address], [place], [address]. tel:[phone] Family History Family Member Type Diagnosis Age [...] Covered republican ID Authoriza tiyou(s) [facility] [id number] Social History Type Description Quantity Date Captured [...]
--- OUTSIDE RECORDS SUMMARY | 2024-05-14 17:31 | XMS_ITS | Data Portability ---
Author Organization SHAHID Pizano SHIPWRIGHT SUPERVISOR, [id number] Address [address] [place] [address] Assessment No assessment recorded. Plan of Treatment Reminders Order Date Submit Date Provider Last Modified By Organization Details Last Modified Time Details Appointments None recorded. Lab test, urine 2019 020 [id number] [address] [place] [address], [address], [place], [address], 0 14:02:19 Referral None recorded. Procedures None recorded. Surgeries hysteroscop y, with endometrial ablation (SURG) 2020 021 [email or web address] Not available 1 10:39:12 Imaging None recorded. Medication Orders None recorded. Patient TargetsNo targets recorded. Patient Instructions Encounter Date Encounter Id Patient Instructions Last Modified By Organization Details Last Modified Time 07/23/2020 [id number] premenstrual syndrome (PMS): care instructions [email or web address] Not available 07/23/2020 13:43:43 08/07/2020 [id number] Reviewed expecte d bleeding pattern after hormonal IUD placement and when to call the clinic. Encouraged scheduled ibuprofen x 24 hrs after placement. RTC in 1 mo for recheck. [email or web address] Not available 08/07/2020 12:06:34 Reason for Referral None Reported. Results Created Date Observation Date Name Description Value Unit Range Abnormal Flag Note LastModifiedBy Organization Detail LastModifiedTime 08/07/2020 pregn joleen test, urine Unknown Analyte negati ve Not Available [id number] da le[address], [place], [address], 08/07/2020 11:03:51 Result Notes None recorded. Problems Name Problem SNOMED Code Status Onset Date Resolution Date Notes Provider Name and Address Organization Details Recorded Time Migraine 85388455 Active Orly S[place] (TERMED) null, [place] [facility] [place] SHIPWRIGHT SUPERVISOR 0 11:40:06 Hemorrhoids 24822889 Active Orly [place] (TERMED) null, [facility] SHIPWRIGHT SUPERVISOR 0 11:40:20 Anemia 945732088 Active Orly [place] (TERMED) null, [facility] SHIPWRIGHT SUPERVISOR 0 11:40:30 Anxiety 69989111 Active Orly [place] (TERMED) null, [facility] SHIPWRIGHT SUPERVISOR 0 11:40:39 Depressive disorder 00604528 Active Orly [place] (TERMED) null, [facility] SHIPWRIGHT SUPERVISOR 0 11:40:46 Problem Notes None recorded. Procedures Surgical History Date Name Laterality Status Provider Name and Address Organization Details Recorded Time 08/07/20 20 [facility]ion [facility] YVROSE CHERY, SELVIN- [address] [facility],[address], [place], [address], [facility] SHIPWRIGHT SUPERVISOR 08/07/2020 12:04:52 08/07/20 20 insertion of intrauterine contraceptive device completed Madison Ortiz [facility] SHIPWRIGHT SUPERVISOR 03/03/2021 09:36:06 07/12/20 20 Date of Last Pap Smear completed Orly [place] (TERMED) [facility] SHIPWRIGHT SUPERVISOR 07/23/2020 11:42:36 06/05/20 20 Date of Last Mammogram completed Orly [place] (TERMED) [facility] SHIPWRIGHT SUPERVISOR 07/23/2020 11:42:56 04/22/20 18 Date of Last Colonoscopy completed Orly [place] (TERMED) [facility] SHIPWRIGHT SUPERVISOR 07/23/2020 11:43:27 hammer toe operation completed Orly [place] (TERMED) [facility] SHIPWRIGHT SUPERVISOR 07/23/2020 11:44:01 Unlisted px accessory sinus completed Orly [place] (TERMED) [facility] 07/23/2020 11:44:14 tarsal tunnel release completed Orly [place] (TERMED) [facility] 07/23/2020 11:44:28 excision of cyst of ovary completed Orly [place] (TERMED) [facility] 07/23/2020 11:44:39 release of trigger finger completed Orly [place] (TERMED) [facility] 07/23/2020 11:45:12 Imaging Results None recorded. Procedure Notes None recorded. Medical Equipment None Reported. Allergies Allergen ID Allergen Name Allergen Category Reaction Reaction Severity Criticality Documentation Date Start Date Code Code System Note Provider Name and Address Organization Details Recorded Time 577466 acetamino phen / hydrocodo ne medicatio n itching Not available Not available 07/23/2020 22618 2 RxNorm Orly [place] (TERMED) null, [facility] 0 11:39:24 813337 Augmentin medicatio n diarrhea Not available Not available 07/23/2020 78159 2 RxNorm Orly [place] (TERMED) null, [facility] 0 11:39:42 Medications Name Sig Start [...] Available No t Available BD Regular Bevel [place] 25 gauge x 1 1/2 Use as [...] Address Organization Details Last Updated DateTime 07/23/2020 36005.37 g 26.4 kg/m2 166.37 cm 110 mm[Hg] 80 mm[Hg] Orly Collins (TERMED) [facility] SHIPWRIGHT SUPERVISOR 0 11:33:17 Date Recorded Body height Body mass index (BMI) Body weight Systolic blood pressure Diastolic blood pressure Provider Name and Address Organization Details Last Updated DateTime 08/07/2020 166.37 cm 26.6 kg/m2 10869.68 g 118 mm[Hg] 76 mm[Hg] Mahin Jean (TERMED) [facility] SHIPWRIGHT SUPERVISOR 0 11:05:41 Date Recorded Body height Body mass index (BMI) Body weight Systolic blood pressure Diastolic blood pressure Provider Name and Address Organization Details Last Updated DateTime 03/03/2021 166.37 cm 27.6 kg/m2 23567.24 g 124 mm[Hg] 86 mm[Hg] Madison Ortiz [facility] SHIPWRIGHT SUPERVISOR 1 16:29:48 Social History Question Answer Notes LastModified by Organizat ion Details LastModified Time Tobacco Smoking Status Current Every Day Smoker Madison negron [facility] SHIPWRIGHT SUPERVISOR 03/03/2021 13:14:48 What Is Your Level Of [...] Diagnosis/Indication Diagnosis SNOMED-CT Code Diagnosis ICD10 Code [id number] KELLEY MONTEIRO MD [id number] THD[place]_[address] ,[facility] [address] [place] [address] 07/23/2020 11:18:16 07/23/2020 13:07:19 Menorrhagia 427141591 N92.0 Perimenopa usal disorder 627679028 N95.9 [id number] [facility] [id number] [place]_[address] ,[address] [place] [address] 08/07/2020 10:58:29 08/07/2020 11:50:51 Contraception care management 467845560 Z30.9 [id number] KELLEY MONTEIRO MD [id number] [address] [facility] [place] ,[address] [place] [address] 03/03/2021 16:20:29 03/03/2021 17:39:04 Menorrhagia 228757503 N92.0 Health Concerns Section Related Observation LastModified by Organization Detai ls LastModified Time None Recorded Concern Status LastModified by Organization Details LastModified Time None Recorded Advance Directives Directive None Recorded Payers Encounter Date Sequence Insurance Name Policy Number Policy Wilson Covered Member ID Wilson Member ID Guarantor Name 07/23/2020 1 [place] - [place] [facility] Madison Mark [id number] Madison Flores 08/07/2020 1 [place] - [place] [id number] Madison Flores 03/03/2021 1 [place] [facility] Madison Mark [id number] Madison Rosa Flores Notes Date Note [...] [place] [address] [facility],[address], [place], [address], [place] - [employer]WRIGHT SUPERVISOR 07/23/2020 13:52:34 08/07/2020 text/html HPI Notes: Hailey nt here for IUD insertion. YVROSE CHERY, [facility] [address] [facility],[address], [place], [address], [place] [employer]WR[employer] SUPERVISOR 08/07/2020 12:07:05 03/03/2021 text/html HPI Notes: Abnor [...] and/or SIUS; Pt had an US in [place]. The EC is 8 mm and the [...] would like [place] [address] [facility],[address], [place], [address], [place] [employer] SUPERVISOR 03/03/2021 17:32:47 OBGyn Episode Ob Episode Information Episode Created Date Number of Fetuses Patient Bloodtype Patient rh Status Prepregnancy Weight lbs Domestic Partner Domestic Partner Phone Father Name Vice President Of Instruction Status 07/23/20 20 1 CLOSED Fetus Data First Name Last Name Admitted to NICU Weight (g) Sex Living Outcome Pediatric Complications Fetus ID Race Codes Race Delivery Type 3543.46 0704 F Full Term 52250 Antione Calculation Initial Antione Date Initial Exam [...] Domestic Partner Domestic Partner Phone Father Name Vice President Of Instruction Status 07/23/20 20 1 CLOSED Fetus Data First Name Last Name Admitted to NICU Weight (g) Sex Living Outcome Pediatric Complications Fetus ID Race Codes Race Delivery Type 3345.24 1 F Full Term [address]5938 Antione Calculation Initial Antione Date Initial Exam [...]
--- OUTSIDE RECORDS SUMMARY | 2024-05-14 17:32 | XMS_ITS | Clinical Summary ---
Author Organization [facility] Address [place], [place] [address] Care Team Providers Care Dag Sprayer Name Role Phone Angy Guillory DO Primary Care Provider [phone] Allergies Active Allergy Reactions Criticality Noted Date [...] daily. 10/02/2023 Active ketorolac (TORADOL) 10 mg tabletIndications:Ceramic Worker francois migraine with aura without status migrainosus, [...] Active ondansetron (ZOFRAN ODT) 4 mg disintegrating tabletIndications:Ceramic Worker francois migraine with aura without status migrainosus, [...] Description 03/07/2024 4:15 PM CDT Office Visit [facility] [address] [place] [address] Mackenzie Magaña PA Neck Pain/problem 03/07/2024 Travel [...] Procedure Name Priority Date/Time Associated Diagnosis Comments WOOD DRILL OPERATOR THIN PREP PAP SCREEN IMAGED Routine 07/12/2020 3:15 PM GIS DEVELOPER from Last 3 Months or Most Recently Relevant to Health Maintenance Results * WOOD DRILL OPERATOR THIN PREP PAP SCREEN IMAGED (07/12/2020 3:15 PM GIS DEVELOPER) Case Report Gynecologic Cytology Report ? Case: [id number] ? Authorizing Provider: ??Rivera, Mukti B, PA-C ? Collected: ? 07/12/2020 1515 ? Ordering Location: ? [facility] ?Received: ?07/15/2020 1725 ? First Screen: ?Julienne Brunson ? Pathologist: ? Radha Moy MD ? Specimen: ?WOOD DRILL OPERATOR ThinPrep Vial Screening, Cervical/Vaginal ? 07/24/2020 7:31 AM [facility] LABORATORY-C ENTRAL LABORATORY INTERPRETATION/ RESULT NEGATIVE FOR INTRAEPITHELIAL LESION OR MALIGNANCY (NIL) (none) 07/24/2020 7:31 AM [facility] LABORATORY-C ENTRAL LABORATORY R NON-NEOPLASTIC FINDING(S) Hyperkeratosis 07/24/2020 7:31 AM [facility] LABORATORY-C ENTRAL LABORATORY ORGANISM(S) Shift in magnus suggestive of bacterial vaginosis 07/24/2020 7:31 AM [facility] LABORATORY-C ENTRAL LABORATORY SPECIMEN ADEQUACY Satisfactory for evaluation No endocervical component seen 07/24/2020 7:31 AM [facility] LABORATORY-C ENTRAL LABORATORY HPV REQUEST HPV and PAP 07/24/2020 7:31 AM [facility] LABORATORY-C ENTRAL LABORATORY Date of LMP 06/20/2020 07/24/2020 7:31 AM [facility] Last Pap Result NIL 0 7:31 AM [facility] Additional Information 07/24/2020 7:[address] [facility] LABORATORY Comment: Interpreted at [facility] - [address], [place] [address] Automated Review Successful 07/24/2020 7:31 AM [facility] Comment:Specimen processed s uccessfully by automated logistics loss prevention manager device, ThinPrep Imaging System, [employer] ANCILLARY TESTING WOOD DRILL OPERATOR HPV Ordered, Please see separate report 07/24/2020 [...] LABORATORY Other (Cervical/Vagina l) 07/12/2020 3:15 PM GIS DEVELOPER 07/15/2020 5:25 PM GIS DEVELOPER Bessy Rivera PA-C PATHOLOGY/CYTOLOGY [facility] [address] [place] [address], [place] from Last 3 Months or Most Recently Relevant to Health Maintenance Care Teams Dag Sprayer Relationship Specialty Start Date End Date Angy Guillory DO [address] [place] [address] PCP - General Family Practice 09/29/23
[2024-05-14] MEDS: KETOROLAC 15 MG/ML inj IVP (17:40)
[2024-05-14] MEDS: 0.9 % SODIUM CHLORIDE 1000 ml 1,000 ML IV (17:40)
[2024-05-14] MEDS: METOCLOPRAMIDE HCL 5 MG/ML INJ 10 MG IVP (17:41)
[2024-05-14] MEDS: diphenhydrAMINE 50 MG/ML inj 12.5 MG IVP (17:41)
[2024-05-14 17:57] LABS: Lactate* 1.2 mmol/L (0.5-1.9)
[2024-05-14 17:59] LABS: Basophils Absolute Auto 0.01 K/uL (0.00-0.30); Basophils Percent Auto 0.1 % (0.0-3.0); Hematocrit 41.5 % (33.0-51.0); Hemoglobin* 13.9 gm/dL (12.0-16.0); Immature Granulocytes Abs Auto 0.01 K/uL (0.00-0.30); Immature Granulocytes Pct Auto 0.1 %; Lymphocytes Absolute Auto 1.62 K/uL (0.90-2.90); Lymphocytes Percent Auto 20.7 % (20-44); Mean Corpuscular HGB Conc 34 gm/dL (32-36); Mean Corpuscular Hemoglobin 31 pg (26-34); Mean Corpuscular Volume 93 fL (80-100); Monocytes Percent Auto 7.9 % (0.0-11.0); Neutrophils Absolute Auto 5.56 K/uL (1.7-7.0); Neutrophils Percent Auto 71.2 % (42.0-72.0); Platelet Count* 184 K/uL (140-440); RDW Coefficient of Variation % 12.8 % (11.5-15.5); Red Blood Count 4.45 m/uL (4.00-5.20); Slide Review Reflex No; White Blood Count* 7.82 K/uL (4.50-11.00)
[2024-05-14 18:12] LABS: Chloride* 111 mmol/L (96-114); Potassium* 3.1 mmol/L (3.6-5.1); Sodium* 139 mmol/L (135-149)
[2024-05-14 18:14] LABS: Creatinine* 0.7 mg/dL (0.5-1.5); Estimated Glomerular Filt Rate 107 ml/min
[2024-05-14 18:15] LABS: Anion Gap 11 mEq/L (7-15); Blood Urea Nitrogen* 17 mg/dL (5-24); Calcium* 9.4 mg/dL (8.4-10.6); Carbon Dioxide* 17 mmol/L (20-32); Glucose* 104 mg/dL (60-115)
[2024-05-14 19:24] VITALS: BP 130/86; PULSE 75; RESP 20; O2SAT 99
[2024-05-14] MEDS: metroNIDAZOLE 500 MG TABLET PO (20:01)
[2024-05-14] MEDS: cefuroxime axetiL 500 MG TABLET PO (20:01)
[2024-05-14 20:05] VITALS: BP 127/98; PULSE 74; RESP 20; O2SAT 100
== END 2024-05-14 20:10 | disposition home or self-care (01) ==
PROVIDERS: Emergency Provider Emergency Medicine; PCP Family Medicine
DX: S61.451A Open bite of right hand, initial encounter (principal); K04.7 Periapical abscess without sinus; E86.0 Dehydration; W55.01XA Bitten by cat, initial encounter
CPT/HCPCS: 36415; 80048; 83605; 85025; 96361; 96374; 96375; 99284; A9270; J1200; J1885; J2765; J7030

== ENCOUNTER 2025-05-08 10:23 | Emergency (ER) | payer OTHER, SELFPAY ==
--- OUTSIDE RECORDS SUMMARY | 2016-09-08 06:47 | XMS_ITS | Continuity of Care Document ---
Author Organization Anil [facility] Address 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 40 MG - Active zolpidem 10 mg tablet take 1 Tablet by o ral route every bedtime 1 Tablet - Active paroxetine 20 mg tablet take 1 tablet by oral route every day 20 MG - Active Trokendi XR 25 mg capsule,extended release take 1 capsule by oral route 2 times every day 25 MG - Active FLEXERIL 10mg ORAL TABLET Take one tablet by mouth one time daily - Active gabapentin 300 mg capsule take 1 capsule by oral route 3 times every day 300 MG - Active Procedures Procedure Date Neuromuscular [...] Providers Copied on Encounter TALA Ma, [address], [id number], tel:[phone] [facility] 7390 No Information Almaguer PT [place]. [address] [place], [place], [address], [place]. tel:[phone] Referring Provider: Christopher Horner, [address] [place], [address]. tel:[phone] TALA Ma, [address], [place], [id number], tel:[phone] [facility] 7390 No Information Almaguer PT [place]. [address] [place], [place], [address], . tel:[phone] Referring Provider: Christopher Horner, [address] [place], [address]. tel:[phone] TALA Ma, [address], [place], [place], [address], [place] tel:[phone] Tiffanie Ma [facility] 7390 No Information Almaguer PT [place]. [address], [place], [place], [address], [place]. tel:[phone] Referring Provider: Christopher Horner, [address] [facility], [place], [address]. tel:[phone] [facility], [address], [place], [place], [address], [place] tel:[phone] Tiffanie Mchugha [facility] 7390 No Information 6 Almaguer PT [place]. [address], [place], [place], [id number], [place]. tel:[phone] Referring Provider: Christopher Horner, [address] [facility], [place], [address]. tel:[phone] [facility], [address], [place], [address], [place] tel:[phone] [facility] Low back painOther intervertebral disc degeneration, lumbar regionSpondylo sis without myelopathy or radiculopathy, lumbosacral regionSpondylo sis without myelopathy or radiculopathy, lumbar region 6 Saida Sage. [address], [place], [place], [address], [place]. tel:[phone] Referring Provider: Chu Dick, [address], [place], [address] . tel:[phone] Anil, [facility], [address], [place], [place], [address], [place] tel:[phone] [facility] No Information 6 Saida Sage. [address], [place], [place], [address], [place]. tel:[phone] Referring Provider: Chu Dick, [address], [place], [address] . tel:[phone] Anil, [facility], [address], [place], [place], [address], [place] tel:[phone] [facility] 7390 No Information 6 Almaguer PT [place]. [address], [place], [place], [address], [place]. tel:[phone] Referring Provider: Christopher Horner, [address] [facility], [place], [address]. tel:[phone] New Pt Eval 45 Min [facility], [facility], [address], [place], [place], [address], [place] tel:[phone] [facility] Sacroiliitis, not elsewhere classifiedLesi on of sciatic nerve, right lower limbOther intervertebral disc displacement, lumbosacral regionOther intervertebral disc degeneration, lumbar region 6 No Information Referring Provider: Christopher Horner, [address] [facility], [place], [address]. tel:[phone] Family History Family Member Type Diagnosis Age [...] glaucoma Payers Payer name Insurance type Covered alliance party ID Authoriza tiyou(s) Blue Plus [facility] [id number] Social History Type Description Quantity Date Captured [...]
[2025-05-08 10:31] VITALS: BP 113/75; PULSE 83; RESP 18; TEMP 36.8; O2SAT 99; BMI 28.3
--- OUTSIDE RECORDS SUMMARY | 2025-05-08 10:38 | XMS_ITS | Clinical Summary ---
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 Active 08/23 Chey Irvin RN Circadian rhythm sleep disorder, delayed sleep phase type Fibromyalgia 29134974 (SNOMED CT) Active 10/12 Tanner Fernández MD Fibromyositis Insomnia 834260355 (SNOMED CT) Active 10/12 Tanner Wednesday Insomnia Periodic limb movement disorder 390352868 (SNOMED CT) Active 10/12 Tanner Wednesday Periodic limb movement disorder Anemia 021726778 (SNOMED CT) Active Tanner Wednesday Anemia 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 (SNOMED CT) Active Tanner Pradeep MD Disorder of iron metabolism Restless leg syndrome 99189203 (SNOMED CT) Active Tanner Fernández MD Restless legs syndrome CHRONIC MIGRAINE W/O AURA W/INTRACTABLE W/SM G43.711 (ICD-10-CM) 03/23 Active 03/23 Fede Buckley MD Chronic migraine without aura, intractable, with status migrainosus Medications Medication Instructions Start Date Stop Date Generic Name NDC Provider MEDROL 4 MG TBPK take as directed on packet instructions 01/11 methylprednisolone [id number] Teo Godoy MD BD LUER-ALEX SYRINGE 25G X 1 3 ML Use as directed 11/22 syringe with needle 07476867037 Teo Godoy MD POLY HUB NEEDLE 25G X 1-08/24 Use as directed 11/22 needle (disp) 25 gauge [id number] Teo Godoy MD PREGABALIN 100 MG CAPS 12/15 pregabalin 38287132656 Teo Godoy MD RELPAX 40 MG TABS 1 pill at NOVAK onset. May combine with 2 Aleve. May repeat in 2 hours if HAs overtreat. 12/15 eletriptan 82930139829 Teo Godoy MD CYCLOBENZAPRINE HCL 10 MG TABS 1 tablet by mouth every night 03/23 cyclobenzaprine 92230318535 Teo Godoy MD PREGABALIN 100 MG CAPS qhs 12/15 pregabalin 82342944563 Teo Godoy MD KETOROLAC TROMETHAMINE 30 MG/ML SOLN 1 intramuscularly as directed 12/15 ketorolac 13200941704 Teo Godoy MD PREGABALIN 25 MG CAPS take 1-2 caps in the AM and an additional 1-2 caps prn qhs 08/23 pregabalin 19444353307 Teo Godoy MD KETOROLAC TROMETHAMINE 30 MG/ML SOLN Inject 1 ml intramuscularly as directed Inject as needed for abortive treatment of migraine headaches 12/15 ketorolac 91595111879 Teo Godoy MD SAVELLA 25 MG TABS milnacipran 11094310277 Teo Godoy MD DESVENLAFAXINE SUCCINATE ER 100 MG [id number] TAKE 1 TABLET BY MOUTH EVERY DAY* desvenlafaxine succinate 72460283549 Teo Godoy MD ESZOPICLONE 3 MG TABS Take 1 Tablet (3 mg) by mouth at bedtime.* eszopiclone 59569293643 Teo Godoy MD METHYLPHENIDATE HCL ER (OSM) 36 MG CR-TABS methylphenidate hcl 32739474590 Oliv zafar Godoy MD NURTEC 75 MG TBDP TAKE 1 TAB AT ONSET OF MIGRAINE. NO MORE THAN 1 TAB EVERY 24 HOURS. 12/15 rimegepant 71053439069 Teo Godoy MD DESVENLAFAXINE SUCCINATE ER 50 MG [id number] desvenlafaxine succinate 12911751642 Tanner Wednesday PREGABALIN 25 MG CAPS take 1-2 caps in the AM and an additional 1-2 caps prn qhs 08/23 pregabalin 67652495711 Roslyn Jose QUVIVIQ 25 MG TABS Take 1 tablet by mouth at bedtime 08/25 daridorexant 50730372217 bree Wednesday PREGABALIN 25 MG CAPS take 1-2 caps in the AM and an additional 1-2 caps prn qhs 08/23 pregabalin 34331654625 Tanner Wednesday PREGABALIN 100 MG CAPS 12/15 pregabalin 33637666975 Tanner Wednesday PREGABALIN 100 MG CAPS qhs 12/15 pregabalin 08829894522 bree Wednesday POLY HUB NEEDLE 25G X 1-08/24 Use as directed for ketorolac injections 11/22 NEEDLE (DISP) 09269577601 Fede Buckley MD BD LUER-ALEX SYRINGE 25G X 1 3 ML Use as directed with ketorolac injections 11/22 SYRINGE/NEEDLE (DISP) 61604433720 Fede Buckley MD CYMBALTA 60 MG ORAL CAPSULE DELAYED RELEASE PARTICLES 2 pills at hs 03/09 DULOXETINE HCL 45442603588 Fede Buckley MD LUNESTA 3 MG TABS 1 at night as needed 03/09 ESZOPICLONE 09261189683 Fede Buckley MD GABAPENTIN 300 MG CAPS 3 at bedtime 03/23 GABAPENTIN 76175002429 Fede Buckley MD TRAZODONE HCL 100 MG TABS 2 at night 11/22 TRAZODONE HCL 94410268859 Fede Buckley MD ZONEGRAN 25 MG CAPS Weeks #1 and #2 take 1 in PM, then Week #3 and on take 2 in PM 11/22 ZONISAMIDE 63831056351 Fede Buckley MD FERROUS GLUCONATE 324 (37.5 Fe) MG TABS take 1 tab qhs 03/09 FERROUS GLUCONATE 98637322855 Fede Buckley MD EQL VITAMIN C 500 MG TABS take 1 tab qhs with iron 03/09 ASCORBIC ACID 62252940676 Fede Buckley MD LYRICA 200 MG CAPS take 1 cap within 2 hours prior to bed for RLS/PLMs 06/23 PREGABALIN 66999370495 Tanner Wednesday EQTricia VITAMIN C 500 MG TABS take 1 tab qhs with iron 03/09 ASCORBIC ACID 12969701942 Tanner Wednesday FERROUS GLUCONATE 324 (37.5 Fe) MG TABS take 1 tab qhs 03/09 FERROUS GLUCONATE 21588401346 Tanenr Wednesday 25 GAUGE 1 AND 1/2 INCH NEEDLE 11/22 25 GAUGE 1 AND 1/2 INCH NEEDLE Fede Buckley MD 1 ML SYRINGE 11/22 1 ML SYRINGE Fede Buckley MD RELPAX 40 MG TABS 1 pill at NOVAK onset. May combine with 2 Aleve. May repeat in 2 hours if HAs overtreat. 03/23 ELETRIPTAN HYDROBROMIDE 50272539273 Fede Buckley MD ZONEGRAN 25 MG CAPS Weeks #1 and #2 take 1 in PM, then Week #3 and on take 2 in PM 11/22 ZONISAMIDE 03960671328 Fede Buckley MD TRAZODONE HCL 100 MG TABS 2 at night 11/22 TRAZODONE HCL 41255235774 Fede Buckley MD VERAPAMIL HCL ER 120 MG CR-TABS 1 daily 03/01 VERAPAMIL HCL 90996671188 Tati Hernandez RN VERAPAMIL HCL ER 120 MG CR-TABS 1 daily 03/01 VERAPAMIL HCL 33718744565 Fede Buckley MD PAXIL CR 25 MG [id number] 1 daily 03/23 PAROXETINE HCL 38839762736 Fede Buckley MD NORTRIPTYLINE HCL 10 MG CAPS Week #1 take 1 in PM, then Week #2 and on take 2 in PM 03/01 NORTRIPTYLINE HCL 93918311628 Fede Buckley MD NORTRIPTYLINE HCL 10 MG CAPS Week #1 take 1 in PM, then Week #2 and on take 2 in PM 03/01 NORTRIPTYLINE HCL 01887034440 Fede Buckley MD KETOROLAC TROMETHAMINE 30 MG/ML SOLN give 1 IM shot for intractable migraine 03/02 KETOROLAC TROMETHAMINE 46464341164 Fede Buckley MD TOPAMAX 25 MG TABS 3 at bedtime 03/23 TOPIRAMATE 40878588687 Fede Buckley MD PAXIL CR 25 MG [id number] 1 daily 03/23 PAROXETINE HCL 84690161254 Fede Buckley MD CYCLOBENZAPRINE HCL 10 MG TABS 1 at hs 03/23 CYCLOBENZAPRINE HCL 70381576577 Fede Buckley MD GABAPENTIN 300 MG CAPS 3 at bedtime 03/23 GABAPENTIN 68103661112 Fede Bukcley MD TOPAMAX 25 MG TABS 3 at bedtime 03/23 TOPIRAMATE 89835129521 Fede Buckley MD RELPAX 40 MG TABS 1 pill at NOVAK onset. May combine with 2 Aleve. May repeat in 2 hours if HAs overtreat. 03/23 ELETRIPTAN HYDROBROMIDE 74177313805 Fede Buckley MD Medications Administered No information available. Allergies, Adverse Reactions, Alerts Allergy Name Reaction Description Start Date Severity Statu s Provider AUGMENTIN Critical Active Fede Buckley MD VICODIN Critical Active Fede Buckley MD Results Date Name Value Unit Range Flag Description Office Visit: CHRONIC MIGRAI CAROLINE 03/23/16 07:55- 03/23/16 07:55 REFERRING P... SMOK STATUS current every day smoker Tobacco smoking status Internal Other: Authorizatio n - OBS PTSTAUTHDT 1 N PT Startin g Authorization Date Office Visit: FLUP-YU HAWK MD 11/22/17 15:52- 11/22/17 15:52 REFERRING PHYS... FALLRSKASSES Fall Risk Screening completed. Fall risk assessment Lab Report: IRON AND TOTAL I RICHARD BINDING CAPACITY IRON SATUR % 31 % (CALC) % 11-50 N Iron saturation [Mass Fraction] in Serum or Plasma TIBC 254 MCG/DL (CALC) ug/dL 250-450 N Iron binding capacity [Mass/volume] in Serum or Plasma Lab Report: FERRITIN FERRITIN 57 ng/mL 16-232 N Ferritin [Mass/volume] in Serum or Plasma Office Visit: Office Visit f ollo up migrianes eomd - prev sawa TS, TKF/appr MEDS REVIEW Done Documenta tion of current medications (procedure) Internal Other: Authorizatio n AUTHBENEFIT Yes Authoriza tion: Assignment of Benefits and Payment Agreement [email or web address] Yes Authorizat ion: Authorization for [facility] to leave messages, voicemail, send text messages, send emails AUTHRELHCARE Yes Authoriz ation: Release/Retrieval of Information to/from Healthcare Facilities, Pharmacy Benefit Payers and Providers ROIAUTHOTHER Yes Authoriz ation: Release of Information - Authorize Others/Insurance - Payment and Healthcare Operations [email or web address] Yes Authoriza tion: Release of Information - Authorize [facility] - Payment and Healthcare Operations AUTHPRIVPRAC Yes Authoriz ation: Notice of privacy practices HIECONSENT Yes Consent To Release information to the Health Information Exchange ([employer]) Plan of Care Type Date Detail Referral Other Referral Pending order Obtain outside r ecords Pending order Follow up JASVIR Pending order Patient Instruct ions Pending order Neurotoxin Injec tion Pending order Patient Instruct ions Pending order Ferritin Serum Pending order Ferritin Serum Pending order Ferritin Serum Pending Order exclud ed from report: Pending order Botox Injection Pending Order exclud ed from report: Pending order Migraine Infusio n Order Set #10: Low Dose Solu-Medrol/Toradol Pending order Migraine Infusio n Order Set #10: Low Dose Solu-Medrol/Toradol Pending order Botox Injection Pending order Botox Injection Pending order Follow up Pending order Follow up Pending order Ferritin Serum Pending order Follow up Pending Order exclud ed from report: Pending order Follow up Pending order Iron Pending order Iron & Total Iro n-binding Capacity (TIBC) Pending order Instructions for Staff Pending order Other Handout Pending order Other Referral Pending order Follow up Pending order Patient Instruct ions Pending order Follow up Pending Order exclud ed from report: Pending order Follow up Pending order Patient Instruct ions Pending order Follow up Pending order Follow up Pending order Follow up Pending order MRI-Brain W/O Pending order Patient Instruct ions Procedures Code Procedure Name Date Entry Date [facility]-[id number] Documentation of current medicatio ns [facility]-[id number] Documentation of current medicatio ns CPT-0240597 Occipital nerve bloc k (Greater ONB) bilateral CPT-6952543 Lesser ONB/3rd ONB/Auricular/Preauricular,bilateral ORDERS Patient Instructions ORDERS Obtain outside records 12/15 [facility]-[id number] Documentation of current medicatio ns ORDERS Patient Instructions ORDERS Ferritin Serum [facility]-[id number] Documentation of current medicatio ns ORDERS Ferritin Serum ORDERS Botox Injection ORDERS Migraine Infusion Or alem Set #10: Low Dose Solu-Medrol/Toradol ORDERS Migraine Infusion Or alem Set #10: Low Dose Solu-Medrol/Toradol CPT-J0585 Botox 2 vials CPT-48427 Chem - Face/Neck - Migraine or Headache 2 CPT-J0585 Botox 2 vials CPT-68672 Chem - Face/Neck - Migraine or Headache 2 ORDERS Botox Injection CPT-J0585 Botox 2 vials CPT-49431 Chem - Face/Neck - Migraine or Headache 2 CPT-J0585 Botox 2 vials CPT-97606 Chem - Face/Neck - Migraine or Headache 2 CPT-J0585 Botox 1 vial CPT-01111 Chem - Face/Neck - Migraine or Headache 2 ORDERS Follow up ORDERS Follow up ORDERS Iron & Total Iron-binding Capacity (TIBC) ORDERS Instructions for Staff 06/08 ORDERS Iron ORDERS Follow up [id number] Documentation of current medicatio ns ORDERS Ferritin Serum [id number] Other Referral CPT-J0585 Botox 1 vial CPT-97022 Chem - Face/Neck - Migraine or Headache 2 ORDERS Other Handout ORDERS Follow up CPT-J0585 Botox 1 vial CPT-94357 Chem - Face/Neck - Migraine or Headache 2 ORDERS Patient Instructions CPT-91843 Brief emotional/behavioral assessment 201 03/26/02 [id number] Documentation of current medicatio ns ORDERS Follow up ORDERS Patient Instructions ORDERS Follow up CPT-47854 Brief emotional/behavioral assessment 201 02/26/10 [id number] Documentation of current medicatio ns CPT-10126 Brief emotional/behavioral assessment 201 02/20/09 [id number] Documentation of current medicatio ns ORDERS Follow up [facility]-[id number] Documentation of current medicatio ns CPT-79364 Brief emotional/behavioral assessment 201 01/30/31 ORDERS Follow up [id number] MRI-Brain W/O CPT-63969 Brief emotional/behavioral assessment 201 01/28/01 [facility]-[id number] Documentation of current medicatio ns ORDERS Patient Instructions Vital Signs Date Name Value Unit Description Height 65.5 [in_us] height E&M BMI (Body Mass Index) 20.72 kg/m2 Bod y Mass Index (Ratio) BP Diastolic 52 mm[Hg] blood pressu re, diastolic BP Systolic 94 mm[Hg] blood pressur e, systolic Heart Rate 80 /min pulse rate Weight Measured 126 [lb_av] weight E& M Weight Measured 126 [lb_av] weight E& M Immunizations No information available. Advance Directives No information available.
--- OUTSIDE RECORDS SUMMARY | 2025-05-08 10:39 | XMS_ITS | Clinical Summary ---
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 2 Active desvenlafaxine succinate (PRISTIQ) 100 mg extended release tablet Take 1 Tablet (100 mg) by mouth once daily as directed. 90 Tablet 01/12/2024 5:14 PM CDT 4 Active methylphenidate 18 mg extended-release tablet Take 36 mg by mouth once daily. 4 Active ondansetron (ZOFRAN ODT) 4 mg disintegrating tabletIndications:C hronic migraine with aura without status migrainosus, not intractable Place 1 Tablet (4 mg) on the tongue every 8 hours if needed for Nausea/Vomit ing. 30 Tablet 4 Active eszopiclone 3 mg tabletIndications:P sychophysiological insomnia Take 1 Tablet (3 mg) by mouth at bedtime. 30 Tablet 5 Active cyclobenzaprine 10 mg tabletIndications:F ibromyalgia Take 1 Tablet (10 mg) by mouth once daily. 90 Tablet 5 Active pregabalin 200 mg capsuleIndications: Periodic limb movement disorder,Fibromyalg ia Take 1 Capsule (200 mg) by mouth once daily. 90 Capsule 1 5 Active doxycycline hyclate 100 mg capsuleIndications: Hidradenitis suppurativa Take 1 Capsule (100 mg) by mouth once daily. 90 Capsule 5 Active Active Problems Problem Noted Date Diagnosed Date KELIN III (cervical intraepithelial neoplasia III) 03/09/2025 Overview (03/09/2025): 10/2003 HSIL/ Squamous carcinoma in situ 10/2003 [place], KELIN 2-3/ HSIL 02/2004 HSIL/ squamous carcinoma in situ 07/2004 LEEP, chronic cervicitis & endocervicitis 07/2004 NIL 10/2004 NIL 03/2005 NIL 09/2005 ASCUS/ HPV neg 03/2006 NIL 03/2007 NIL 07/2008 NIL 03/2010 NIL 06/2020 NIL/HPV neg 01/2025 UNS/HPV neg Plan: HPV-based testing due 01/2026 Prediabetes 02/19/2025 Generalized anxiety disorder 12/28/2023 Circadian rhythm sleep disorder, delayed sleep p hase type 06/23/2023 Anemia 06/08/2018 Fibromyalgia 06/08/2018 Insomnia 06/08/2018 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 Periodic limb movement disorder 06/08/2018 Restless leg syndrome 06/08/2018 Chronic migraine without aur a, with intractable migraine, so stated, with status migrainosus 03/23/2016 Contraceptive management 04/06/2005 Overview (11/26/2023): Contraceptive Management NOS Follicular cyst of ovary 04/06/2005 Overview (11/26/2023): LW Onset: 1997 ; Cyst Ovarian Follicular Encounters Date Type Department Care Team Description 02/16/2025 1:20 PM CDT Office Visit [facility] [address] [place] [address] Angy Guillory, DO Physical (49 year old female); Lab (MMR, DANYA titer) 02/16/2025 Travel from Last 3 Months Immunizations Immunization Administration Dates Next Due Hepatitis A (Adult) 03/29/2009,06/20/2008 Hepatitis B (Adult) 03/17/1999,12/13/1997,1997 Influenza Intradermal PF 18-64 yrs 06/17/2012 Influenza Virus, Unspecified 06/17/2009, 06/17/2009,05/21/2004,2003 Influenza, IIV3 (Age >=3 years) 08/03/2018,06/20,08/09/2007 Influenza, IIV4 05/06/2023,,05/23/2021,2016,05/14/2016 Influenza, IIV4 (=>6mos) MDV 07/17/2019 Pneumococcal Conj 20-valent (Prevnar 20) 02/16/2025 Pneumococcal Poly,23-Valent (Pneumovax) 08/26/2010 Td (Age >=7 Years) 02/16/2002,03/31/1993 Td, Preservative Free (age > = 7 Years) 12/29/2016 Tdap 06/19/2008 Tuberculin (PPD) 09/15/2024 Family History Medical History Relation Name Comments Cancer-breast Maternal Grandmother Cancer-breast Mother Relation Name Status Comments Maternal Grandmother Mother Other Greatgrandmother (mat) Social History Tobacco Use Types Packs/Day Years Used Date Smoking Tobacco: Every Day Cigarettes Passive Smoke Exposure: Current Smokeless Tobacco: Never Tobacco Cessation:Ready to Q uit: No; Counseling Given: Yes Alcohol Use Standard Drinks/Week Comments Not Currently 0 (1 standard drink = 0.6 oz pur e alcohol) rare PHQ-2 Answer Date Recorded PHQ-2 TOTAL SCORE 3 02/16/2025 Social Connections Answer Date Recorded Do you often feel lonely or isolated from those around you? 0 11/27/2024 Financial Resource Strain Answer Date R ecorded Difficulty of Paying Living Expenses 3 11/27/2024 Difficulty of Paying Living Expenses Not on file 11/27/2024 Food Insecurity Answer Date Recorded Do you worry your food will run out before you are able to buy more? 1 11/27/2024 Transportation Needs Answer Date Record ed Does lack of transportation keep you from medica l appointments? 1 11/27/2024 Does lack of transportation keep you from work, meetings or getting things that you need? 1 11/27/2024 Housing Stability Answer Date Recorded What is your housing situation today? 1 11/27/2024 Utilities Answer Date Recorded Do you have trouble paying f or utilities (for example, heat, electricity, water, phone)? 1 11/27/2024 Comments No Sex and Gender Information Value Date Recorded Sex Assigned at Not on file Legal Sex Female 9:33 AM CDT Gender Identity Not on file Sexual Orientation Not on file Obstetrics History Last Filed Vital Signs Vital Sign Reading Time Taken Comments Blood Pressure 112/78 02/16/2025 1:43 PM CDT Pulse 85 02/16/2025 1:43 PM CDT Temperature 36.7 C (98.1 F) 05/17/2024 11:47 AM CDT Respiratory Rate 18 11/26/2023 5:44 PM CDT Oxygen Saturation 100% 02/16/2025 1:43 PM CDT Inhaled Oxygen Concentration - - Weight 75.5 kg (166 lb 8 oz) 02/16/2025 1:43 PM CDT Height 165.5 cm (5' 5.16) 02/16/2025 1:43 PM CD T Body Mass Index 27.57 02/16/2025 1:43 PM CDT Plan of Treatment Health Maintenance Due Date Last Done Comments HIV for age 15-65 1992 Hepatitis C screening for ag e 18-79 1995 Colonoscopy through age 75 2022 Mammogram for age 45-75 2022 COVID-19 vaccine series ( season) 2025 08/26/2021, 01/21/2021 Influenza Vaccine (#1) 2025 , 05/20/2022, 05/23/2021, Additional history exists BMI (ht and wt on same day) for age 18+ 02/16/2026 02/16/2025, 01/13/2016 Depression screening for age 12+ 02/16/2026 02/17/20, 01/28/2024 Pap test for age 21-65 02/16/2026 5, 07/12/2020, 07/12/2020 Tetanus booster 12/29/2026 12/29/2016, 05/24, 02/16/2002, Additional history exists Lipids for age 45-75 02/16/2030 02/16/2025 RSV vaccine for adults or (1 - 1-dose 75+ series) 2052 Hepatitis B series for 19+ Completed 03/17, 12/13/1997, 10/31/1997 Pneumococcal series for age 6-49 Completed 02/17/20, 08/26/2010 Procedures Procedure Name Priority Date/Time Associated Diagnosis Comments LIPID PANEL W REFLEX MEASURED LDL Routine 02/16/2025 2:53 PM CDT Screening for lipid disorders ROLL SETTER THIN PREP PAP SCREEN IMAGED- Unsuccessful Attempt Routine 02/16/2025 2:47 PM CDT Screening for cervical cancer HPV HIGH RISK Routine 02/16/2025 2:47 PM CDT Screening for cervical cancer TRICHOMONAS, ROSA, AND BACTERIAL VAGINOSIS BY SHAW Routine 02/16/2025 2:47 PM CDT Vaginal discharge RUBEOLA IMMUNE STATUS Routine 02/16/2025 2:45 PM CDT Rubella immune status not known MUMPS IMMUNE STATUS Routine 02/16/2025 2 :45 PM CDT Rubella immune status not known VARICELLA-ZOSTER V AB, IGG Routine 02/16/2025 2:45 PM CDT Rubella immune status not known HEMOGLOBIN A1C Routine 02/16/2025 2:45 PM CDT Diabetes mellitus screening from Last 3 Months Results * (ABNORMAL) LIPID PANEL W REFLEX MEASURED LDL [[id number]] (02/16/2025 2:53 PM CDT) CHOLESTEROL, TOTAL 202(H) <200 mg/dL [facility] HDL CHOLESTEROL 51 > OR = 50 mg/dL [facility] TRIGLYCERIDES 67 <150 mg/dL [facility] LDL-CHOLESTEROL 135(H) mg/dL (calc) [facility] Comment: Reference range: <100 Desirable range <100 mg/dL for primary prevention; <70 mg/dL for patients with CHD or diabetic patients with > or = 2 CHD risk factors. LDL-C is now calculated using the Linda calculation, which is a validated novel method providing better accuracy than the Friedewald equation in the estimation of LDL-C. Kirill SAAVEDRA et al. SHILPA. 2013;310(19): 8404-8086 (http://education.Westcrete/faq/LQM860) CHOL/HDLC RATIO 4.0 <5.0 (calc) [facility] NON HDL CHOLESTEROL 151(H) <130 mg/dL (calc) [facility] Comment: For patients with diabetes plus 1 major ASCVD risk factor, treating to a non-HDL-C goal of <100 mg/dL (LDL-C of <70 mg/dL) is considered a therapeutic option. Blood BLOOD SPECIMEN / Unknown 02/16/2025 2:53 PM CDT 02/16/2025 2:54 PM CDT us Angy Guillory DO CHEMISTRY Final Result [facility] [address] [place] [address], [facility] [address] [place] [address] * (ABNORMAL) TRICHOMONAS, ROSA, AND BACTERIAL VAGINOSIS BY SHAW (02/16/2025 2:47 PM CDT) ROSA SPECIES Negative Negative 3:46 AM CDT [facility] ROSA GLABRATA Negative Negative 02/17/2025 3:46 AM CDT [facility] TRICHOMONAS VVA Negative Negative 3:46 AM CDT [facility] BACTERIAL VAGINOSIS Positive(A) Negative 02/17/2025 3:46 AM CDT [facility] Other VAGINAL SWAB / Unknown Non-Blood / Unknown 02/16/2025 2:47 PM CDT 02/16/2025 2:47 PM CDT Angy Guillory DO MICROBIOLOGY Final Result [facility] [address] [place] [address], [place] * ROLL SETTER THIN PREP PAP SCREEN IMAGED [[id number]] (02/16/2025 2:47 PM CDT) - Unsuccessful Attempt Case Report Gynecologic Cytology Report Case: [id number] Authorizing Provider: Angy Guillory DO Collected: 02/16/2025 [facility] Ordering Location: [facility] Received: 02/16/2025 [facility] Clinic First Screen: Miguel Villa Rescreen: Fannie Jose Specimen: ROLL SETTER ThinPrep Vial Screening, Cervical 03/09/2025 12:21 PM CDT [facility] INTERPRETATION /RESULT UNSATISFACTORY FOR EVALUATION (UNS) (none) 03/09/2025 12:21 PM CDT [facility] at 1221 CDT SPECIMEN ADEQUACY Specimen processed and examined, but unsatisfactory for evaluation of epithelial abnormality because of: Scant cellularity 03/09/2025 12:21 PM CDT [facility] HPV REQUEST HPV and PAP 03/09/2025 12:21 PM CDT [facility] Date of LMP Hormonally suppressed 03/09/2025 12:21 PM CDT [facility] Last Pap Date 07/12/20 03/09/2025 12:21 PM CDT [facility] Last Pap Result NIL 03/09/2025 12:21 PM CDT [facility] Abnormal Pap or [place] Bx in last 5 years No 03/09/2025 12:21 PM CDT [facility] Menstrual Status Hormonally Suppressed 03/09/2025 12:21 PM CDT [facility] [place] Bx Done Today No 03/09/2025 12:21 PM CDT [facility] Additional Information None given 03/09/2025 12:21 PM CDT [facility] Comment: Cytology is screened at [facility] - [address], [place] [address] and [facility] - [address], [place] [address] and [facility] - [address] [place] [address] Interpreted at [facility] - [address], [place] [address] Automated Review Failed 03/09/2025 12:21 PM CDT [facility] Comment:Processing failed, m anual screening required. ThinPrep Imaging System, [employer] ANCILLARY TESTING ROLL SETTER HPV Ordered, Please see separate report 03/09/2025 12:21 PM CDT [facility] Note The pap test is a screening technique, not a diagnostic procedure. It is used primarily to screen for squamous cancers and precursor lesions. Published studies have shown that it is subject to both false negative and false positive results. The pap test should not be used as the sole means to diagnose or exclude pre-malignant and malignant lesions. 03/09/2025 12:21 PM CDT [facility] Other (Cervical) Non-Blood / Unknown 02/16/2025 2:47 PM CDT 02/16/2025 2:47 PM CDT us Angy Guillory DO PATHOLOGY/CYTOLOGY Final Resu lt [facility] [address] [place] [address], [place] * HPV HIGH RISK (02/16/2025 2:47 PM CDT) TYPE 16 Negative Negative 02/21/2025 12:26 PM CDT [facility] TYPE 18 Negative Negative 02/21/2025 12:26 PM CDT [facility] OTHER HIGH RISK TYPES Negative Negative 02/21/2025 12:26 PM CDT [facility] Other (Cervical) Non-Blood / Unknown 02/16/2025 2:47 PM CDT 02/19/2025 10:44 AM CDT Narrative [facility] - 02/21/2025 12:26 PM CDT HPV types 16, 18, 31, 33, 35, 39, 45, 51, 52, 56, 58, 59, 66 and 68 DNA were undetectable or below the pre-set threshold. Methodology: [place] [place] 4800 HPV Test Angy Guillory DO MICROBIOLOGY Final Result [facility] [address] [place] [address], * VARICELLA-ZOSTER V AB, IGG [[id number]] (02/16/2025 2:45 PM CDT) [facility] VARICELLA ZOSTER VIRUS ANTIBODY (IGG) 12.10 S/CO [facility] Comment: Signal to Cut-off S/CO Interpretation --------- <1.00 Negative - Antibody not detected > or = 1.00 Positive - Antibody detected A positive result indicates that the patient has antibody to VZV but does not differentiate between an active or past infection. The clinical diagnosis must be interpreted in conjunction with the clinical signs and symptoms of the patient. This assay reliably measures immunity due to previous infection but may not be sensitive enough to detect antibodies induced by vaccination. Thus, a negative result in a vaccinated individual does not necessarily indicate susceptibility to VZV infection. A more sensitive test for vaccination-induced immunity is Varicella Zoster Virus Antibody Immunity Screen, ACIF. Blood BLOOD SPECIMEN / Unknown 02/16/2025 2:45 PM CDT 02/16/2025 2:48 PM CDT Angy Guillory DO LABORATORY Final Result Performing Organization Address [facility]/ZIP Co de Phone Number [facility] [address] [place] [address], [facility] [address] [place] [address] * (ABNORMAL) HEMOGLOBIN A1C (02/16/2025 2:45 PM CDT) [facility] HEMOGLOBIN A1C 6.1(H) <5.7 % [facility] Comment: For someone without known diabetes, a hemoglobin A1c value between 5.7% and 6.4% is consistent with prediabetes and should be confirmed with a follow-up test. For someone with known diabetes, a value <7% indicates that their diabetes is well controlled. A1c targets should be individualized based on duration of diabetes, age, comorbid conditions, and other considerations. This assay result is consistent with an increased risk of diabetes. Currently, no consensus exists regarding use of hemoglobin A1c for diagnosis of diabetes for children. Blood BLOOD SPECIMEN / Unknown 02/16/2025 2:45 PM CDT 02/16/2025 2:48 PM CDT Angy Guillory DO CHEMISTRY Final Result Performing Organization Address [facility] Co de Phone Number [facility] [address] [place] [address], [facility] [address] [place] [address] * MUMPS IMMUNE STATUS [[id number]] (02/16/2025 2:45 PM CDT) [facility] MUMPS VIRUS AB (IGG), IMMUNE STATUS 132.00 AU/mL [facility] Comment: AU/mL Interpretation ------- <9.00 Not consistent with immunity 9.00-10.99 Equivocal >10.99 Consistent with immunity The presence of mumps IgG antibody suggests immunization or past or current infection with mumps virus. Blood BLOOD SPECIMEN / Unknown 02/16/2025 2:45 PM CDT 02/16/2025 2:48 PM CDT Angy Ion Torrent Kahlil CHEMISTRY Final Result [facility] [address] [place] [address], [facility] [address] [place] [address] * RUBEOLA IMMUNE STATUS [[id number]] (02/16/2025 2:45 PM CDT) [facility] MEASLES AB (IGG), IMMUNE STATUS 92.00 AU/mL [facility] Comment: AU/mL Interpretation ----- <13.50 Not consistent with immunity 13.50-16.49 Equivocal >16.49 Consistent with immunity The presence of measles IgG suggests immunization or past or current infection with measles virus. For additional information, please refer to http://education.Westcrete/faq/YUR740 (This link is being provided for informational/ educational purposes only.) Blood BLOOD SPECIMEN / Unknown 02/16/2025 2:45 PM CDT 02/16/2025 2:48 PM CDT Angy Anna Kahlil DO LABORATORY Final Result Performing Organization Address City/[facility]/ZIP Co de Phone Number [facility] [address] [place] [address], [facility] [address] [place] [address] from Last [address] [place] [address] [employer] Care Teams Veneer Taping Machine Offbearer Relationship Specialty Start Date End Date Angy Guillory DO [address] [place] [address] PCP - General Family Practice 09/29/23
--- OUTSIDE RECORDS SUMMARY | 2025-05-08 10:39 | XMS_ITS | Patient Health Record ---
Author Organization [facility] Address [address] [place] [address] Support Name Relationship Address Phone Madison Flores Guarantor Unknown [phone] Reason For Referral No Information Medications Medication SIG (Take, Route, Frequency, Duration) Notes Start Date End Date Status Diflucan SpecialInstructi on: 200 mg today then 100 mg qday x 2 additional days 06/26/2016 Active Prednisone ; Duration: 3 06/26/2016 Act beto Cefdinir ; Duration: 10 06/26/2016 Act beto cyclobenzaprine ; Duration: 30 06/10/2016 08/23/18 Active zolpidem ; Duration: 30 SpecialInstructi on: TAKE 1 TABLET BY MOUTH DAILY AT BEDTIME NEEDED. 06/10/2016 Active PARoxetine HCl ; Duration: 30 SpecialInstructi on: TAKE 1 TABLET BY MOUTH DAILY. 06/10/2016 Active rizatriptan ; Duration: 28 06/10/2016 A ctive Topiramate ; Duration: 30 SpecialInstructi on: TAKE 1 TABLET BY MOUTH 2 TIMES DAILY. 06/10/2016 Active Gabapentin ; Duration: 30 SpecialInstructi on: TAKE 3 CAPSULES BY MOUTH DAILY. 06/10/2016 Active Relpax ; Duration: 6 SpecialInstructi on: TAKE 1 TABLET BY MOUTH ONCE AT ONSET OF HEADACHE. 06/10/2016 Active Problems Problem Type SNOMED Code ICD Code Onset Dates Problem Status W/U Status Risk Notes Problem Chronic rhinitis (72610082) Chronic rhinitis (J31.0) 09/21/19 17 0 confirmed [id number] Problem Chronic maxillary sinusitis (57834014) Chronic maxillary sinusitis (J32.0) 06/10/20 16 0 confirmed [id number] Problem Chronic frontal sinusitis (74217442) Chronic frontal sinusitis (J32.1) 06/10/20 16 0 confirmed [id number] Problem Chronic ethmoidal sinusitis (45981279) Chronic ethmoidal sinusitis (J32.2) 06/10/20 16 0 confirmed [id number] Problem Chronic sphenoidal sinusitis (78351861) Chronic sphenoidal sinusitis (J32.3) 06/10/20 16 0 confirmed [id number] Problem Polyp of nasal cavity (332069206) Polyp of nasal cavity (J33.0) 07/07/20 16 0 confirmed [id number] Problem Headache (33846283) Headache (R51) 06/10/20 16 0 confirmed [id number] Problem Pansinusitis (027039768) Pansinusitis (J32.4) 07/03/20 16 0 confirmed [id number] Plan Of Treatment No Information
--- OUTSIDE RECORDS SUMMARY | 2025-05-08 10:39 | XMS_ITS | Clinical Summary ---
[facility] Address [address] [place] [address] Care Team Providers Care Display Trimmer Name Role Phone Bessy Rivera PA-C Primary Care Provider [phone] Source Comments You are receiving this document as you are listed as the primary care provider,follow-up provider, or the patient has been referred to you for consultation.This is in compliance with the Medicare and[facility] EHR Incentive Program,which states Providers who transition their patient to another setting of careor provider of care or refers their patient to another provider of care shouldprovide summary care record for each transition of care or referral. AddSearch Allergies Active Allergy Reactions Criticality Noted Date Comments Amoxicillin-Pot Clavulanate Gastrointestinal 12/27/2020 Iodine 04/11/2010 PN: LW Reaction: Unknown Reaction Morphine And Codeine Itching 12/27/2020 Medications CALCIUM OR Take by mouth. 08/03/20 08 Active piroxicam (AKA FELDENE) 20 MG capsule Take 1 capsule by mouth daily (every 24 hours). LW Addl Instr:Take with food. Indicated for: Arthritis 90 3 08/03/20 08 Active DRUG NOT IN COMPUTER Take 3 each by mouth nightly. LW Comment:tiazadin e 300mg 08/03/20 08 Active gabapentin (NEURONTIN) 300 MG capsule Take 3 capsules by mouth nightly. 90 3 08/03/20 08 Active Multiple Vitamins-Calcium (ONE-A-DAY WOMENS FORMULA) Indications: PN: 08/03/20 08 Active levonorgestrel (AKA MIRENA) 20 MCG/24HR IUD LW Addl Instr:INDICATED FOR CONTRACEPTION. 1 01/09/20 09 Active levonorgestrel (AKA MIRENA) 20 MCG/24HR IUDIndications:En counter for insertion of intrauterine contraceptive device 1 each by Intrauterine route See Admin Instructions. To be administered once every 5 years in clinic office. 1 each 0 06/07/20 12 Active buPROPion (AKA WELLBUTRIN) 100 MG tablet Take 100 mg by mouth 2 times daily. 06/07/20 12 Active cyclobenzaprine (FLEXERIL) 10 MG tablet Take 10 mg by mouth at bedtime as needed. 12/08/19 21 Active DULoxetine (CYMBALTA) 60 MG capsule Take 60 mg by mouth two times a day. 12/21/19 21 Active eletriptan (RELPAX) 40 MG tablet TAKE 1 TABLET AT HEADACHE ONSET. MAY COMBINE WITH 2 ALEVE. MAY REPEAT IN 2 HOURS IF HEADACHES OVERTREAT 10/29/19 21 Active eszopiclone (LUNESTA) 3 MG tablet Take 3 mg by mouth daily at bedtime. 12/08/19 21 Active pregabalin (LYRICA) 200 MG capsule Take 200 mg by mouth daily at bedtime. 12/08/19 21 Active ondansetron (ZOFRAN) 4 MG tablet Take 1 Tablet by mouth every 8 hours as needed for Nausea. 9 Tablet 12/28/19 21 Active meclizine (ANTIVERT) 25 MG tablet Take 1 Tablet by mouth 4 times daily as needed for Dizziness/Vertig o. 15 Tablet 12/28/19 21 Active ketorolac (TORADOL) 10 MG tablet Take [...] Onset: 1997 ; Cyst Ovarian Follicular Immunizations Immunization Administration Dates Next Due Flu Vac (18-64 Yrs), Intradermal 06/17/2012 Flu Vac (3+ yrs) 08/03/2018,06/20/2008, 7 Flu Vac Preserv Free (3+yrs) 06/17/2009,05/21/20 04 Fluzone Qiv Multidose Vial 0 .25 (6-35 Mos) 07/17/2019 HepA Adult (19+ yrs) 03/29/2009,06/20/2008 HepB Adult (Engerix-B, 20+ y rs, 3 dose series) 03/17/1999,12/13/1997,10/31/1997 Influenza IIV4 (Quadrivalent ) 0.5mL (27886) 05/20/2022,05/20/2022,05/23/2021,2016,05/14/2016 Influenza, Unspecified Formulation 06/17/2009, Mary COVID-19 Vaccine 01/21/2021 PPSV23 (Pneumovax) 08/26/2010 Pfizer Monovalent 12+ Purple Top 08/26/2021 TDAP (ADACEL) 06/19/2008 Td 03/31/1993 Td, Preservative Free 12/29/2016 Social History Tobacco Use Types Packs/Day Years Used Date Smoking Tobacco: Every Day Cigarettes Smokeless Tobacco: Never Comments No Sex and Gender Information Value Date Recorded Sex Assigned at Not on file Legal Sex Female 9:42 AM CDT Gender Identity Not on file Sexual Orientation Not on file Last Filed Vital Signs Vital Sign Reading Time Taken Comments Blood Pressure 125/77 12/27/2020 11:20 AM CDT Pulse 75 12/27/2020 11:20 AM CDT Temperature 36.8 C (98.3 F) 12/27/2020 11:20 AM CDT Respiratory Rate 16 12/27/2020 11:2 [...] 04/11/2010, 08/03/2008, 04/11/2007, Additional history exists Pneumococcal Vaccine (2 of 2 - PCV) 08/26/2011 08/26/2010 Cholesterol 2022 COVID-19 Vaccine (3 - season) 2025 08/26/2021, 01/21/2021 Influenza Vaccine (#1) 2025 , 05/20/2022, 05/23/2021, Additional history exists DTaP/Tdap/Td Vaccine (4 - Tdap) 12/29/2026 12/29/2016, 06/19/2008, 03/31/1993 Zoster/Shingles Vaccine (1 of 2) 2027 HepB Vaccine Completed 03/17/1999, 11/22, 10/31/1997 HIV Screening (Preventive Services) Completed 11/23/2003 HepA Vaccine Aged Out 03/29/2009, 06/20/2008 No lo nger eligible based on patient's age to complete this topic Hib Vaccine Aged Out No longer eligi ble based on patient's age to complete this topic IPV (Polio) Vaccine Aged Out No longe r eligible based on patient's age to complete this topic MCV4 Vaccine Aged Out No longer eligi ble based on patient's age to complete this topic Meningococcal B Vaccine Aged Out No l onger eligible based on patient's age to complete this topic Procedures Procedure Name Priority Date/Time Associated Diagnosis Comments ANATOMICAL PATH LIQUID BASED Routine 04/11/2010 9:36 AM CDT HIV ANTIBODY Routine 11/23/2003 9:52 AM COMMERCIAL REAL ESTATE ATTORNEY from Last 3 Months or Most Recently Relevant to Health Maintenance Results * Pap Smear (04/11/2010 9:36 AM CDT) Pap Smear SEE TEXT No normal range HP CONVERSION Comment: Final GYNECOLOGICAL CYTOLOGY REPORT Pathology #: [id number] Date Obtained: 04/11/2010 Date Received: 04/14/2010 INTERPRETATION/RESULTS: Negative for Intraepithelial Lesion or Malignancy SPECIMEN ADEQUACY: Satisfactory for Evaluation. Endocervical cells/transformation zone component present. Verified on 04/16/2010 by ALEXIS JEWELL(ASCP) (electronic signature) CLINICAL NOTES: LMP: not stated, IUD. SPECIMEN TYPE: CERVICAL WITH REFLEX TO HPV IF ASCUS End of Report 04/11/2010 9:36 AM CDT us Cj Floyd MD LAB_1 Final Result HP CONVERSION * HIV Antibody (11/23/2003 9:52 AM COMMERCIAL REAL ESTATE ATTORNEY) HIV 1/HIV 2 Non Reac Non Reac HP CONVERSION 11/23/2003 9:52 AM COMMERCIAL REAL ESTATE ATTORNEY us Preeti Cano APRN, CNP LAB_1 Final Result HP CONVERSION from Last 3 Months or Most Recently Relevant to Health Maintenance Insurance [facility] Care Teams Display Trimmer Relationship Specialty Start Date End Date Bessy Rivera PA-C [address] [place] [address] PCP - General Physician Loom Operator 12/27/20
--- NOTE | 2025-05-08 11:06 | CRLHL7_ITS ---
For Patients: As a result of the Century Cures Act, medical imaging exams and procedure reports are released immediately into your electronic medical record. You may view this report before your referring provider. If you have questions, please contact your health care provider. INDICATION: Cough. TECHNIQUE: Chest 2 views. COMPARISON: None. FINDINGS: Cardiovascular and mediastinum: Heart size and vasculature are normal in caliber and appearance. Lungs and pleural spaces: Lungs are clear. No sign of infiltrate or mass. No sign of pleural effusion. No pneumothorax. Bones and soft tissues: No significant findings. IMPRESSION: No acute findings. Dictated by Kevin Granados MD @ 05/08/2025 11:53:09 AM (Electronically Signed)
--- NOTE | 2025-05-08 11:15 | ED_ITS ---
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 She says that the past couple of days the cough has caused posttussive emesis and she has not been able to eat. She has been drinking Gatorade. She has a little bit of shortness breath common denies chest pain. No abdominal pain. No bloody stools. She has had a couple of COVID test which have been negative because her child did have COVID recently. She has been taking occasional Zofran, she has 4 mg ODT TS as well as 8 mg tablets at home. The tablets have not been staying down, but she did take an ODT yesterday. She says is not really helping with the vomiting. She is not aware of any fevers although she has felt hot and cold. She does smoke, but says she has not been able to smoke past couple of days due to her cough. She has an inhaler which she has been using every 6-8 hours. Denies prior diagnosis of asthma or COPD, other medical history reviewed and includes fibromyalgia, anxiety, depression, insomnia, restless legs and migraine. Related Data Home Medications ?Medication ?Instructions ?Recorded ?Confirmed albuterol 90 mcg/actuation aerosol See Rx Instructions inhalation 04/24/23 05/08/25 inhaler .COMPLEX eletriptan 40 mg tablet See Rx Instructions .Route P RN 04/24/23 05/08/25 ondansetron HCl 4 mg tablet 4 mg PO Q6H PRN 04/24/23 0 05/08/25 desvenlafaxine succinate 100 mg 100 mg PO DAILY 05/08/25 tablet,extended release 24 hr desvenlafaxine succinate 25 mg 25 mg PO DAILY 05/20/23 05/08/25 tablet,extended release 24 hr Previous Rx's ?Medication ?Instructions ?Recorded pregabalin 200 mg capsule (Lyrica) 200 mg PO .QHS #90 caps 01/05/23 eletriptan 20 mg tablet (Relpax) 20 mg PO Q2-4H PRN mi graine 05/20/23 headache #20 tabs cyclobenzaprine 10 mg tablet 10 mg PO QPM PRN for musc le spasm 06/21/23 #30 tabs eszopiclone 3 mg tablet 3 mg PO QHS #30 tabs 3 Allergies Allergy/AdvReac Type Severity Reaction Status Date / Time iodine Allergy Mild itching Verified 05/08/25 10:37 hydrocodone AdvReac Mild systemic Verified 05/08/25 10:37 itching, vomiting shellfish Allergy Intermediate Uncoded 05/20/23 16:04 Clavulanate AdvReac Mild Diarrhea Uncoded 12/01/22 14:41 Review of Systems Status of ROS: Reports: 10 or more systems reviewed and unremarkable except as noted in History and below PFSH [facility] Medical History Hemorrhoids ?K64.9 - Unspecified hemorrhoids (ICD-10) Surgical History History of colonoscopy ?Z98.890 - Other specified postprocedural states (ICD-10) History of third molar tooth extraction ?K08.409 - Partial loss of teeth, unspecified cause, unspecified class (ICD- 10) History of sinus surgery ?Z98.890 - Other specified postprocedural states (ICD-10) History of ovarian cystectomy ?Z98.890 - Other specified postprocedural states (ICD-10) ?Z87.42 - Personal history of other diseases of the female genital tract (ICD-10) History of hemorrhoidectomy ?Z98.890 - Other specified postprocedural states (ICD-10) History of hammer toe correction ?Z98.890 - Other specified postprocedural states (ICD-10) ?Z87.39 - Personal history of other diseases of the musculoskeletal system and connective tissue (ICD-10) Family History Mother Breast cancer Other Colon cancer Diabetes Heart disease Stroke Social History Narrative: smoker Smoking Status: Current every day smoker How often do you have a drink containing alcohol: never AUDIT-C Alcohol total score: 0 Non-prescribed substance use: denies use service: No Exam Narrative: Exam Narrative: Vital signs reviewed In general, alert, nontoxic mid age woman. She sounds congested. Head: Normocephalic, atraumatic. Eyes: Sclera clear. Pupils equal and reactive. No icterus. ENT: Mucous membranes moist. Neck: Supple without adenopathy. Heart: Regular rate and rhythm without murmur. Lungs: Scattered rhonchi and wheezes, greater on the left than the right. No crackles. Abdomen: Soft, nontender to palpation. Extremities: Well perfused, pulses intact. No significant edema. Neurologic: Alert, conversant. Speech fluent, face symmetric. Moves all extremities equally. Skin: Warm, dry well perfused. Affect: Normal. Const: Vital Signs, click to edit/add: Vital Signs - 24 hr 05/08/25 10:31 Temperature 98.3 F Pulse Rate [Right Pulse Oximeter] 83 Respiratory Rate 18 Blood Pressure [Ri ght Upper Arm] 113/75 Pulse Oximetry 99 Oxygen Delivery Me thod Room Air Course Course ED Course: Overall patient is nontoxic in appearance, symptoms seem likely to be viral, other diagnostic considerations would include pneumonia either viral or bacteria, hepatitis, dehydration. No findings on history or exam to suggest sepsis. Labs reviewed and found to be entirely normal. No vomiting while here. Had a L normal saline. Chest x-ray by my review is normal, no evidence of infiltrate. Read as negative by Radiology. Recommended increased use of inhaler, prescribed prednisone for further treatment of bronchitis. Advise primary care follow-up if not improving over the next week or so, return any time for significant worsening, high fevers, difficulty breathing etcetera. Vital Signs Vital signs: Initial Vital Signs Temperature 98.3 F 05/08/25 10:31 Temperature Source Temporal Artery Scan 05/08/25 10:31 Pulse Rate 83 05/08/25 10:31 Pulse Rhythm Regular 05/08/25 10:31 Pulse Strength 3+ Normal 05/08/25 10:31 Respiratory Rate 18 05/08/25 10:31 Blood Pressure 113/75 05/08/25 10:31 Blood Pressure Mean 87 05/08/25 10:31 Blood Pressure Position Sitting 05/08/25 10:31 Pulse Oximetry 99 05/08/25 10:31 Oxygen Delivery Method Room Air 05/08/25 10:31 Vital Signs Temperature 98.3 F 05/08/25 10:31 Pulse Rate 83 05/08/25 10:31 Respiratory Rate 18 05/08/25 10:31 Blood Pressure 113/75 05/08/25 10:31 Pulse Oximetry 99 05/08/25 10:31 Oxygen Delivery Method Room Air 05/08/25 10:31 Temperature 98.3 F 05/08/25 10:31 Pulse Rate 83 05/08/25 10:31 Respiratory Rate 18 05/08/25 10:31 Blood Pressure 113/75 05/08/25 10:31 Pulse Oximetry 99 05/08/25 10:31 Oxygen Delivery Method Room Air 05/08/25 10:31 Medications Administered Medications: Discontinued Medications Generic Name Dose Route Start Last Admin Trade Name Freq PRN Reason Stop Dose Admin Albuterol/Ipratropium 1 neb 05/08/25 11:18 05/08/25 11:23 Iprat-Albut 0.5-2.5 Mg/3 Ml Neb IH 05/08/25 11:19 1 neb ONCE ONE Administration Sodium Chloride 1,000 mls @ 1,000 mls/hr 05/08/25 11:15 05/08/25 12:25 0.9 % Sodium Chloride 1000 Ml IV 05/08/25 12:14 Infused .Q1H MIQUEL Infusion Metoclopramide HCl 10 mg/ 102 mls @ 306 mls/hr 05/08/25 11:05 05/08/25 11:48 Sodium Chloride IVPB 05/08/25 11:06 Infused ONCE ONE Infusion Medical Decision Making Lab Data Lab results reviewed: Yes I reviewed the patient's lab results Labs: Lab Results 05/08/25 Range/Units 11:15 WBC 6.98 (4.50-11.00) K/uL RBC 4.93 (4.00-5.20) m/uL Hgb 15.4 (12.0-16.0) gm/dL Hct 45.7 (33.0-51.0) % MCV 93 (80-100) fL MCH 31 (26-34) pg MCHC 34 (32-36) gm/dL RDW Coeff of Greg 12.6 (11.5-15.5) % Plt Count 216 (140-440) K/uL Neut % (Auto) 71.4 (42.0-72.0) % Lymph % (Auto) 22.3 (20-44) % [place] % (Auto) 5.9 (0.0-11.0) % Eos % (Auto) 0.0 (0.0-7.0) % Baso % (Auto) 0.3 (0.0-3.0) % Neut # (Auto) 4.98 (1.7-7.0) K/uL Lymph # (Auto) 1.56 (0.90-2.90) K/uL [place] # (Auto) 0.40 (0.00-0.90) K/UL Eos # (Auto) 0.00 (0.00-0.50) K/uL Baso # (Auto) 0.02 (0.00-0.30) K/uL Abs Immat Gran (auto) 0.01 (0.00-0.30) K/uL Imm/Tot Granulo (auto) 0.1 % Sodium 140 (135-149) mmol/L Potassium 3.6 (3.6-5.1) mmol/L Chloride 106 (96-114) mmol/L Carbon Dioxide 25 (20-32) mmol/L Anion Gap 9 (7-15) mEq/L BUN 20 (5-24) mg/dL Creatinine 0.9 (0.5-1.5) mg/dL Estimated Creat Clear 68.79 Estimated GFR 79 ml/min Glucose 152 H (60-115) mg/dL Calcium 9.9 (8.4-10.6) mg/dL Total Bilirubin 0.7 (0.1-1.5) mg/dL Direct Bilirubin 0.3 (0.0-0.5) mg/dL AST 28 (12-35) U/L ALT 18 (4-35) U/L Alkaline Phosphatase 137 (40-150) U/L C-Reactive Protein 1.2 H (0.5-1.0) mg/dL Total Protein 8.2 (6.0-8.3) g/dL Albumin 4.8 (3.3-5.0) g/dL Imaging Data Chest x-ray: Attestation: I have reviewed the pertinent imaging results. Radiologist's impression: Patient: Madison Ramos MR#: [id number] : 1975 Acct:[id number] Loc: ED Service Date: 05/08/[address]: Ordering Physician: Madison Hussein M.D. Date of Service: 05/08/25 Procedure(s): XR chest 2V Accession Number(s): [id number] cc: Madison Hussein M.D.; Angy Guillory D.O.~ For Patients: As a result of the Cures Act, medical imaging exams and procedure reports are released immediately into your electronic medical record. You may view this report before your referring provider. If you have questions, please contact your health care provider. INDICATION: Cough. TECHNIQUE: Chest 2 views. COMPARISON: None. FINDINGS: Cardiovascular and mediastinum: Heart size and vasculature are normal in caliber and appearance. Lungs and pleural spaces: Lungs are clear. No sign of infiltrate or mass. No sign of pleural effusion. No pneumothorax. Bones and soft tissues: No significant findings. IMPRESSION: No acute findings. Dictated by Kevin Granados MD @ 05/08/2025 11:53:09 AM Discharge Plan Discharge Clinical Impression: Acute viral syndrome, Bronchitis Patient Disposition: Home, Self-Care Condition: Stable Instructions: Viral Syndrome (ED) Additional Instructions: Your blood work is all normal, no signs of significant dehydration or infection. Chest x-ray does not show a pneumonia. Based on your lung exam, I do think you have developed bronchitis. I would use your inhaler every 4 hours and we will put you on a little prednisone as well. If no improvement over the next week or so, see primary care. Return any time for acute worsening such as high fevers, significant shortness of breath. Prescriptions: No Action ondansetron HCl 4 mg tablet 4 mg PO Q6H PRN albuterol 90 mcg/actuation aerosol See Rx Instructions INHALATION .COMPLEX Rx Instructions: inhaled; eletriptan 40 mg tablet See Rx Instructions .ROUTE PRN Rx Instructions: as needed; TAKE ONE TAB AT ONSET OF HEADACHE, MAY REPEAT AFTER 2 HOURS IF HEADACHE RETURNS desvenlafaxine succinate 100 mg tablet extended release 24 hr 100 mg PO DAILY desvenlafaxine succinate 25 mg tablet extended release 24 hr 25 mg PO DAILY eletriptan [Relpax] 20 mg tablet 20 mg PO Q2-4H PRN (Reason: migraine headache) Qty: 20 1RF Rx Instructions: do not exceed 4 doses per 24 hrs pregabalin [Lyrica] 200 mg capsule 200 mg PO .QHS Qty: 90 1RF cyclobenzaprine 10 mg tablet 10 mg PO QPM PRN (Reason: for muscle spasm) Qty: 30 3RF eszopiclone 3 mg tablet 3 mg PO QHS Qty: 30 0RF Follow Up/Referrals: Angy Guillory DO [Primary Care Provider, Family Practice] [facility]: [facility] Info Instructions
[2025-05-08] MEDS: IPRAT-ALBUT 0.5-2.5 MG/3 ML NEB 1 NEB IH (11:23)
[2025-05-08 11:25] LABS: Hematocrit* 45.7 % (33.0-51.0); Hemoglobin* 15.4 gm/dL (12.0-16.0); Immature Granulocytes Abs Auto 0.01 K/uL (0.00-0.30); Immature Granulocytes Pct Auto 0.1 %; Lymphocytes Absolute Auto 1.56 K/uL (0.90-2.90); Mean Corpuscular HGB Conc 34 gm/dL (32-36); Mean Corpuscular Hemoglobin 31 pg (26-34); Mean Corpuscular Volume 93 fL (80-100); RDW Coefficient of Variation % 12.6 % (11.5-15.5); Red Blood Count* 4.93 m/uL (4.00-5.20); White Blood Count* 6.98 K/uL (4.50-11.00)
[2025-05-08 11:26] LABS: Slide Review Reflex No
[2025-05-08] MEDS: METOCLOPRAMIDE HCL 10 MG in 0.9 % SODIUM CHLORIDE 100 ml 100 ML 306 MG IVPB (11:27)
[2025-05-08 11:37] LABS: Albumin* 4.8 g/dL (3.3-5.0); Chloride* 106 mmol/L (96-114); Sodium* 140 mmol/L (135-149)
[2025-05-08 11:38] LABS: Potassium* 3.6 mmol/L (3.6-5.1)
[2025-05-08 11:40] LABS: Alanine Aminotransferase* 18 U/L (4-35); Alkaline Phosphatase* 137 U/L (40-150); Anion Gap 9 mEq/L (7-15); Aspartate Amino Transferase* 28 U/L (12-35); Bilirubin Direct* 0.3 mg/dL (0.0-0.5); Bilirubin Total* 0.7 mg/dL (0.1-1.5); Blood Urea Nitrogen* 20 mg/dL (5-24); Carbon Dioxide* 25 mmol/L (20-32); Creatinine* 0.9 mg/dL (0.5-1.5); Est. Creatinine Clearance* 68.79; Estimated Glomerular Filt Rate 79 ml/min; Total Protein* 8.2 g/dL (6.0-8.3)
[2025-05-08 11:41] LABS: Calcium* 9.9 mg/dL (8.4-10.6); Glucose* 152 mg/dL (60-115)
== END 2025-05-08 12:45 | disposition home or self-care (01) ==
PROVIDERS: Emergency Provider Emergency Medicine; PCP Family Medicine
DX: J40 Bronchitis, not specified as acute or chronic (principal); B34.9 Viral infection, unspecified
CPT/HCPCS: 36415; 71046; 80048; 80076; 85025; 86140; 96365; 99284; J2765; J7030

== ENCOUNTER 2025-07-29 22:55 | Emergency (ER) | payer OTHER, SELFPAY ==
--- OUTSIDE RECORDS SUMMARY | 2016-09-08 04:47 | XMS_ITS | Continuity of Care Document ---
Author Organization Anil [facility] Address 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 Phone Tripp PT PT, [place] Unavailable Unavailable Allergies, Adverse Reactions, Alerts Substance Reaction Status Criticality SUMATRIPTAN SUCCINATE Vomiting, Tachycardia Active No Information sumatriptan Vomiting, Tachycardia Active No Inf ormation HYDROCODONE BITARTRATE Vomiting, Itching Active No Information acetaminophen Vomiting, Itching Active No Inform ation POTASSIUM CLAVULANATE Diarrhea Active No Inf ormation AMOXICILLIN TRIHYDRATE Diarrhea Active No In formation Medications Medication Instructions Dosage Effective Dates (start - stop) Status Comments gabapentin 300 mg capsule take 1 capsule by oral route 3 times every day 300 MG - Active FLEXERIL 10mg ORAL TABLET Take one tablet by mouth one time daily - Active Trokendi XR 25 mg capsule,extended release take 1 capsule by oral route 2 times every day 25 MG - Active paroxetine 20 mg tablet take 1 tablet by oral route every day 20 MG - Active zolpidem 10 mg tablet take 1 Tablet by o ral route every bedtime 1 Tablet - Active Relpax [address] 1 tablet by oral route ; if headache returns, the dose may be repeated after 2 hours, but nomore than two doses should be given within a 24-hour period. 40 MG - Active rizatriptan 10 mg tablet take 1 tablet by oral route once, may repeat at 2 hour intervals; do not exceed 30 mg in 24 hours 10 MG - Active Ultram 50 mg tablet take 2 Tablet by ora l route 4 times every day as needed 100 MG - Active Procedures Procedure Date Neuromuscular Re-education Therapeutic Procedure Manual Therapy Neuromuscular Re-education Neuromuscular Re-education Inj Anes Facet Jt; Lumb/sac-3rd Level Au Inj Anes Facet Jt; Lumb/sac-2nd Level Au Inj Anes Facet Jt; Lumb/sac-1st Level Au Inj Anes Facet Jt; Lumb/sac-1st Level Au Inj Anes Facet Jt; Lumb/sac-2nd Level Au Inj Anes Facet Jt; Lumb/sac-3rd Level Au Phys Therap Eval Therapeutic Activities Neuromuscular Re-education New Pt Eval 45 Min Advance Directives Directive Yes / No Effective Date File Name No Information Encounters Encounter Description Practice Location Reason(s) For Visit Diagnoses Date Provider Providers Copied on Encounter TALA Ma, [address], [id number], tel:[phone] [facility] No Information Almaguer PT [place]. [address] [place], [place], [address], [place]. tel:[phone] Referring Provider: Christopher Horner, [address] [place], [address]. tel:[phone] TALA Ma, [address], [place], [id number], tel:[phone] [facility] 7[facility] No Information [facility] [place]. [address] [place], [place], [address], . tel:[phone] Referring Provider: Christopher Horner, [address] [place], [address]. tel:[phone] TALA Ma, [address], [place], [place], [address], [place] tel:[phone] Tiffanie Ma [facility] 7390 No Information Almag[facility] PT [place]. [address], [place], [place], [address], [place]. tel:[phone] Referring Provider: Christopher Horner, [address] [facility], [place], [address]. tel:[phone] [facility], [address], [place], [place], [id number], [place] tel:[phone] T[facility]anie Mchugha [facility] 7390 No Information 6 Almaguer PT [place]. [address], [place], [place], [address], [place]. tel:[phone] Referring Provider: Christopher Horner, [address] [facility], [place], [address]. tel:[phone] [facility], [address], [place], [address], [place] tel:[phone] [facility] Low back painOther intervertebral disc degeneration, lumbar regionSpondylo sis without myelopathy or radiculopathy, lumbosacral regionSpondylo sis without myelopathy or radiculopathy, lumbar region 6 Saida Sage. [address], [place], [place], [address], [place]. tel:[phone] Referring Provider: Chu Dick, [address], [place], [address] . tel:[phone] Anil, [facility], [address], [place], [place], [id number], [place] tel:[phone] [facility] No Information 6 Saida Sage. [address], [place], [place], [address], [place]. tel:[phone] Referring Provider: Chu Dick, [address], [place], [address] . tel:[phone] Anil, [facility], [address], [place], [place], [address], [place] tel:[phone] [facility] 7390 No Information 6 Almaguer PT [place]. [address], [place], [place], [address], [place]. tel:[phone] Referring Provider: Christopher Horner, [address] [facility], [place], [address]. tel:[phone] New Pt Eval 45 Min [facility], [facility], [address], [place], [place], [id number], [place] tel:[phone] [facility] Sacroiliitis, not elsewhere classifiedLesi on of sciatic nerve, right lower limbOther intervertebral disc displacement, lumbosacral regionOther intervertebral disc degeneration, lumbar region 6 No Information Referring Provider: Christopher Horner, [address] [facility], [place], [address]. tel:[phone] Family History Family Member Type Diagnosis Age At Onset Maternal grandmother Problem (finding) hypertension Father Problem (finding) asthma Mother Problem (finding) malignant neop lasm of cervix uteri Maternal grandmother Problem (finding) Diabetes mellit us Maternal grandmother Problem (finding) malignant neoplasm of breast in first degree relative Paternal grandfather Problem (finding) degenerative di sorder of macula Maternal grandfather Problem (finding) hypertension Father Problem (finding) glaucoma Payers Payer name Insurance type Covered republican ID Authoriza tiyou(s) Blue Plus [facility] [id number] Social History Type Description Quantity Date Captured Comments Sex Female Smoking Status No Information Chief Complaint And Reason For Visit No Information Reason For Referral Reason For Referral No Information History Of Present Illness Encounter Date Complaint History Of Prese nt Illness No Information Functional Status Date Functional Assessmen t No Information Instructions Date Instruction Additional Infor mation No Information Assessments Type Assessment Date No Information Patient Care Teams Name Effective Dates (start - stop) Status Members No Information
--- OUTSIDE RECORDS SUMMARY | 2016-09-08 04:47 | XMS_ITS | Continuity of Care Document ---
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 [address] [place], [place], [id number], [place]. tel:[phone] Referring Provider: Christopher Horner, [address] [place], [address]. tel:[phone] TALA Ma, [address], [place], [address], tel:[phone] [facility] 7390 No Information Almaguer PT [place]. [address] [place], [place], [address], . tel:[phone] Referring Provider: Christopher Horner, [address] [place], [address]. tel:[phone] TALA Ma, [address], [place], [place], [address], [place] tel:[phone] Tiffanie Ma [facility] 7390 No Information Almaguer PT [place]. [address], [place], [place], [id number], [place]. tel:[phone] Referring Provider: Christopher Horner, [address] [facility], [place], [address]. tel:[phone] [facility], [address], [place], [place], [id number], [place] tel:[phone] Tiffanie Mchugha [facility] 7390 No Information 6 Almaguer PT [place]. [address], [place], [place], [address], [place]. tel:[phone] Referring Provider: Christopher Horner, [address] [facility], [place], [address]. tel:[phone] [facility], [address], [place], [address], [place] tel:[phone] [facility] Low back painOther intervertebral disc degeneration, lumbar regionSpondylo sis without myelopathy or radiculopathy, lumbosacral regionSpondylo sis without myelopathy or radiculopathy, lumbar region 6 Saida Sage. [address], [place], [place], [address], [place]. tel:[phone] Referring Provider: Chu Dick, [address], [place], [address] . tel:[phone] Anil, [facility], [address], [place], [place], [address], [place] tel:[phone] [facility] No Information 6 Saida Sage. [address], [place], [place], [address], [place]. tel:[phone] Referring Provider: Chu Dick, [address], [place], [address] . tel:[phone] Anil, [facility], [address], [place], [place], [address], [place] tel:[phone] [facility] 7390 No Information 6 Almaguer PT [place]. [address], [place], [place], [address], [place]. tel:[phone] Referring Provider: Christopher Horner, [address] [facility], [place], [address]. tel:[phone] New Pt Eval 45 Min [facility], [facility], [address], [place], [place], [address], [place] tel:[phone] [facility] Sacroiliitis, not elsewhere classifiedLesi on of sciatic nerve, right lower limbOther intervertebral disc displacement, lumbosacral regionOther intervertebral disc degeneration, lumbar region 6 No Information Referring Provider: Christopher Horner, [address] [facility], [place], [address]. tel:[phone] Family History Family Member Type Diagnosis Age [...] glaucoma Payers Payer name Insurance type Covered green party ID Authoriza tiyou(s) Blue Plus [facility] [id number] Social History Type Description Quantity Date Captured [...]
--- OUTSIDE RECORDS SUMMARY | 2025-07-29 22:57 | XMS_ITS | Clinical Summary ---
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) 08/23 Active 08/23 Chey Irvin RN Circadian rhythm sleep disorder, delayed sleep phase type Fibromyalgia 50373477 (SNOMED CT) Active 10/12 Tanner Fernández MD Fibromyositis Insomnia 845131017 (SNOMED CT) Active 10/12 Tanner Wednesday Insomnia Periodic limb movement disorder 037691494 (SNOMED CT) Active 10/12 Tanner Wednesday Periodic limb movement disorder Anemia 365967142 (SNOMED CT) Active Tanner Wednesday Anemia Other disorders of iron metabolism 52833379 (SNOMED CT) Active Tanner Pradeep MD Disorder of iron metabolism Restless leg syndrome 11363301 (SNOMED CT) Active Tanner Fernández MD Restless legs syndrome CHRONIC MIGRAINE W/O AURA W/INTRACTABLE W/SM G43.711 (ICD-10-CM) 03/23 Active 03/23 Fede Buckley MD Chronic migraine without aura, intractable, with status migrainosus Medications Medication Instructions Start Date Stop Date Generic Name NDC Provider MEDROL 4 MG TBPK take as directed on packet instructions 01/11 methylprednisolone [id number] Teo Godoy MD BD LUER-ALEX SYRINGE 25G X 1 3 ML Use as directed 11/22 syringe with needle 37139312820 Teo Godoy MD POLY HUB NEEDLE 25G X 1-08/24 Use as directed 11/22 needle (disp) 25 gauge 93124533255 Teo Godoy MD PREGABALIN 100 MG CAPS 12/15 pregabalin 70959365428 Teo Godoy MD RELPAX 40 MG TABS 1 pill at NOVAK onset. May combine with 2 Aleve. May repeat in 2 hours if HAs overtreat. 12/15 eletriptan 33062109905 Teo Godoy MD CYCLOBENZAPRINE HCL 10 MG TABS 1 tablet by mouth every night 03/23 cyclobenzaprine 44855808930 Teo Godoy MD PREGABALIN 100 MG CAPS qhs 12/15 pregabalin 67957291262 Teo Godoy MD KETOROLAC TROMETHAMINE 30 MG/ML SOLN 1 intramuscularly as directed 12/15 ketorolac 72556217379 Teo Godoy MD PREGABALIN 25 MG CAPS take 1-2 caps in the AM and an additional 1-2 caps prn qhs 08/23 pregabalin 48368365745 Teo Godoy MD KETOROLAC TROMETHAMINE 30 MG/ML SOLN Inject 1 ml intramuscularly as directed Inject as needed for abortive treatment of migraine headaches 12/15 ketorolac 23879555945 Teo Godoy MD SAVELLA 25 MG TABS milnacipran 04894620598 Teo Godoy MD DESVENLAFAXINE SUCCINATE ER 100 MG [id number] TAKE 1 TABLET BY MOUTH EVERY DAY* desvenlafaxine succinate 13584693243 Teo Godoy MD ESZOPICLONE 3 MG TABS Take 1 Tablet (3 mg) by mouth at bedtime.* eszopiclone 56416017892 Teo Godoy MD METHYLPHENIDATE HCL ER (OSM) 36 MG CR-TABS methylphenidate hcl 91765601981 Oliv zafar Godoy MD NURTEC 75 MG TBDP TAKE 1 TAB AT ONSET OF MIGRAINE. NO MORE THAN 1 TAB EVERY 24 HOURS. 12/15 rimegepant 60014416313 Teo Godoy MD DESVENLAFAXINE SUCCINATE ER 50 MG [id number] desvenlafaxine succinate 83813140159 Tanner Wednesday PREGABALIN 25 MG CAPS take 1-2 caps in the AM and an additional 1-2 caps prn qhs 08/23 pregabalin 23250742140 Roslyn Jose QUVIVIQ 25 MG TABS Take 1 tablet by mouth at bedtime 08/25 daridorexant 09079640858 bree Wednesday PREGABALIN 25 MG CAPS take 1-2 caps in the AM and an additional 1-2 caps prn qhs 08/23 pregabalin 57902492060 Tanner Wednesday PREGABALIN 100 MG CAPS 12/15 pregabalin 46757983418 Tanner Wednesday PREGABALIN 100 MG CAPS qhs 12/15 pregabalin 30835092452 bree Wednesday POLY HUB NEEDLE 25G X 1-08/24 Use as directed for ketorolac injections 11/22 NEEDLE (DISP) 44255250702 Fede Buckley MD BD LUER-ALEX SYRINGE 25G X 1 3 ML Use as directed with ketorolac injections 11/22 SYRINGE/NEEDLE (DISP) 43786197438 Fede Buckley MD CYMBALTA 60 MG ORAL CAPSULE DELAYED RELEASE PARTICLES 2 pills at hs 03/09 DULOXETINE HCL 96666681335 Fede Buckley MD LUNESTA 3 MG TABS 1 at night as needed 03/09 ESZOPICLONE 11009590192 Fede Buckley MD GABAPENTIN 300 MG CAPS 3 at bedtime 03/23 GABAPENTIN 49409291724 Fede Buckley MD TRAZODONE HCL 100 MG TABS 2 at night 11/22 TRAZODONE HCL 43823737584 Fede Buckley MD ZONEGRAN 25 MG CAPS Weeks #1 and #2 take 1 in PM, then Week #3 and on take 2 in PM 11/22 ZONISAMIDE 48172398162 Fede Buckley MD FERROUS GLUCONATE 324 (37.5 Fe) MG TABS take 1 tab qhs 03/09 FERROUS GLUCONATE 74937521170 Fede Buckley MD EQL VITAMIN C 500 MG TABS take 1 tab qhs with iron 03/09 ASCORBIC ACID 54149835849 Fede Buckley MD LYRICA 200 MG CAPS take 1 cap within 2 hours prior to bed for RLS/PLMs 06/23 PREGABALIN 21289276638 Tanner Wednesday EQTricia VITAMIN C 500 MG TABS take 1 tab qhs with iron 03/09 ASCORBIC ACID 67810337968 Tanner Wednesday FERROUS GLUCONATE 324 (37.5 Fe) MG TABS take 1 tab qhs 03/09 FERROUS GLUCONATE 29535623257 Tanner Wednesday 25 GAUGE 1 AND 1/2 INCH NEEDLE 11/22 25 GAUGE 1 AND 1/2 INCH NEEDLE Fede Buckley MD 1 ML SYRINGE 11/22 1 ML SYRINGE Fede Buckley MD RELPAX 40 MG TABS 1 pill at NOVAK onset. May combine with 2 Aleve. May repeat in 2 hours if HAs overtreat. 03/23 ELETRIPTAN HYDROBROMIDE 68330625350 Fede Buckley MD ZONEGRAN 25 MG CAPS Weeks #1 and #2 take 1 in PM, then Week #3 and on take 2 in PM 11/22 ZONISAMIDE 61798153120 Fede Buckley MD TRAZODONE HCL 100 MG TABS 2 at night 11/22 TRAZODONE HCL 71910704464 Fede Buckley MD VERAPAMIL HCL ER 120 MG CR-TABS 1 daily 03/01 VERAPAMIL HCL 36605836466 Tati Hernandez RN VERAPAMIL HCL ER 120 MG CR-TABS 1 daily 03/01 VERAPAMIL HCL 70711551392 Fede Buckley MD PAXIL CR 25 MG [id number]-VDM 1 daily 03/23 PAROXETINE HCL 91697938959 Fede Buckley MD NORTRIPTYLINE HCL 10 MG CAPS Week #1 take 1 in PM, then Week #2 and on take 2 in PM 03/01 NORTRIPTYLINE HCL 95687643736 Fede Buckley MD NORTRIPTYLINE HCL 10 MG CAPS Week #1 take 1 in PM, then Week #2 and on take 2 in PM 03/01 NORTRIPTYLINE HCL 06611659882 Fede Buckley MD KETOROLAC TROMETHAMINE 30 MG/ML SOLN give 1 IM shot for intractable migraine 07/06 KETOROLAC TROMETHAMINE 06274355098 Fede Buckley MD TOPAMAX 25 MG TABS 3 at bedtime 03/23 TOPIRAMATE 29341719106 Fede Buckley MD PAXIL CR 25 MG LL81A-BTM 1 daily 03/23 PAROXETINE HCL 89070569365 Fede Buckley MD CYCLOBENZAPRINE HCL 10 MG TABS 1 at hs 03/23 CYCLOBENZAPRINE HCL 67261061286 Fede Buckley MD GABAPENTIN 300 MG CAPS 3 at bedtime 03/23 GABAPENTIN 47632397148 Fede Buckley MD TOPAMAX 25 MG TABS 3 at bedtime 03/23 TOPIRAMATE 81604436321 Fede Buckley MD RELPAX 40 MG TABS 1 pill at NOVAK onset. May combine with 2 Aleve. May repeat in 2 hours if HAs overtreat. 03/23 ELETRIPTAN HYDROBROMIDE 17586298687 Fede Buckley MD Medications Administered No information [...] Release information to the Health Information Exchange ([employer] Plan of Care Type Date Detail Referral [...] Procedures Code Procedure Name Date Entry Date [facility]-[id number] Documentation of current medicatio ns [facility]-[id number] Documentation of current medicatio ns CPT-9043948 Occipital nerve bloc k (Greater ONB) bilateral CPT-2562316 Lesser ONB/3rd ONB/Auricular/Preauricular,bilateral ORDERS Patient Instructions ORDERS Obtain outside records 12/15 [facility]-[id number] Documentation of current medicatio ns ORDERS Patient Instructions ORDERS Ferritin Serum [facility]-[id number] Documentation of current medicatio ns ORDERS Ferritin Serum ORDERS Botox Injection ORDERS Migraine Infusion Or alem Set #10: Low Dose Solu-Medrol/Toradol ORDERS Migraine Infusion Or alem Set #10: Low Dose Solu-Medrol/Toradol CPT-J0585 Botox 2 vials CPT-42856 Chem - Face/Neck - Migraine or Headache 2 CPT-J0585 Botox 2 vials CPT-79021 Chem - Face/Neck - Migraine or Headache 2 ORDERS Botox Injection CPT-J0585 Botox 2 vials CPT-92031 Chem - Face/Neck - Migraine or Headache 2 CPT-J0585 Botox 2 vials CPT-94611 Chem - Face/Neck - Migraine or Headache 2 CPT-J0585 Botox 1 vial CPT-01299 Chem - Face/Neck - Migraine or Headache 2 ORDERS Follow up ORDERS Follow up ORDERS Iron & Total Iron-binding Capacity (TIBC) ORDERS Instructions for Staff 06/08 ORDERS Iron ORDERS Follow up [id number] Documentation of current medicatio ns ORDERS Ferritin Serum SCT-[id number] Other Referral CPT-J0585 Botox 1 vial CPT-69365 Chem - Face/Neck - Migraine or Headache 2 ORDERS Other Handout ORDERS Follow up CPT-J0585 Botox 1 vial CPT-90389 Chem - Face/Neck - Migraine or Headache 2 ORDERS Patient Instructions CPT-87614 Brief emotional/behavioral assessment 201 03/26/02 [id number] Documentation of current medicatio ns ORDERS Follow up ORDERS Patient Instructions ORDERS Follow up CPT-76376 Brief emotional/behavioral assessment 201 02/26/10 [id number] Documentation of current medicatio ns CPT-19642 Brief emotional/behavioral assessment 201 02/20/09 SCT-[id number] Documentation of current medicatio ns ORDERS Follow up [facility]-[id number] Documentation of current medicatio ns CPT-56066 Brief emotional/behavioral assessment 201 01/30/31 ORDERS Follow up [id number] MRI-Brain W/O CPT-89724 Brief emotional/behavioral assessment 201 01/28/01 [facility]-[id number] Documentation of current medicatio ns ORDERS Patient [...]
--- OUTSIDE RECORDS SUMMARY | 2025-07-29 22:57 | XMS_ITS | Clinical Summary ---
[facility] Address [address] [place] [address] Care Team Providers Care Steel Inspector Name Role Phone Bessy Rivera PA-C Primary Care Provider [phone] Source Comments You are receiving this document as you are listed as the primary care provider,follow-up provider, or the patient has been referred to you for consultation.This is in compliance with the Medicare and[facility] EHR Incentive Program,which states Providers who transition their patient to another setting of careor provider of care or refers their patient to another provider of care shouldprovide summary care record for each transition of care or referral. [employer] [place] Allergies Active Allergy Reactions Criticality Noted Date [...] series) 03/17/1999,12/13/1997,10/31/1997 Influenza IIV4 (Quadrivalent ) 0.5mL (80132) 05/20/2022,05/20/2022,05/23/2021,2016,05/14/2016 Influenza, Unspecified Formulation 06/17/2009, Mary COVID-19 [...] CDT HIV ANTIBODY Routine 11/23/2003 9:52 AM RESEARCH PROGRAM MANAGER from Last 3 Months or Most Recently Relevant to Health Maintenance Results * Pap Smear (04/11/2010 9:36 AM CDT) Pap Smear SEE TEXT No normal range HP CONVERSION Comment: Final GYNECOLOGICAL CYTOLOGY REPORT Pathology #: [id number] Date Obtained: 04/11/2010 Date Received: 04/14/2010 INTERPRETATION/RESULTS: [...] CONVERSION * HIV Antibody (11/23/2003 9:52 AM RESEARCH PROGRAM MANAGER) HIV 1/HIV 2 Non Reac Non Reac HP CONVERSION 11/23/2003 9:52 AM RESEARCH PROGRAM MANAGER us Preeti Cano APRN, CNP LAB_1 Final Result HP CONVERSION from Last 3 Months or Most Recently Relevant to Health Maintenance Insurance [facility] Care Teams Steel Inspector Relationship Specialty Start Date End Date Bessy Rivera PA-C [address] [place] [address] PCP - General Physician Arboreal Scientist 12/27/20
--- OUTSIDE RECORDS SUMMARY | 2025-07-29 22:58 | XMS_ITS | Clinical Summary ---
Author Organization [facility] Address [address] [place] [address] Care Team Providers Care Mustanger Name Role Phone Angy Guillory DO Primary Care Provider [phone] Allergies Active Allergy Reactions Criticality Noted Date [...] mouth at bedtime. 30 Tablet 5 Active pregabalin 200 mg capsuleIndications: Periodic limb movement disorder,Fibromyalg ia Take 1 Capsule (200 mg) by mouth once daily. 90 Capsule 1 5 Active doxycycline hyclate 100 mg capsuleIndications: Hidradenitis suppurativa Take 1 Capsule (100 mg) by mouth once daily. 90 Capsule 5 Active cyclobenzaprine (FLEXERIL) 10 mg tabletIndications:F ibromyalgia Take 1 Tablet (10 mg) by mouth once daily. 90 Tablet 5 Active Active Problems Problem Noted Date Diagnosed Date KELIN III (cervical intraepithelial neoplasia III) 03/09/2025 Overview (03/09/2025): 10/2003 HSIL/ Squamous carcinoma in situ 10/2003 [place], KELIN 2-3/ HSIL 02/2004 HSIL/ squamous carcinoma [...] Encounters Date Type Department Care Team Description 06/25/2025 Refill [facility] [address] [place] [address] Angy Guillory DO Refill Request (Cyclobenzaprine) 06/04/2025 1:20 PM CDT E-Visit [facility] [address] [place] [address] Angy Guillory DO eVisit for Sinus from Last 3 Months Immunizations Immunization Administration [...] 01/28/2024 Pap test for age 21-65 02/16/2026 , 07/12/2020, 07/12/2020 Tetanus booster 12/29/2026 12/29/2016, 05/24, [...] 2:53 PM CDT Screening for lipid disorders HPV HIGH RISK Routine 02/16/2025 2:47 PM CDT Screening for cervical cancer from Last 3 Months or Most Recently Relevant to Health Maintenance Results * (ABNORMAL) LIPID PANEL W REFLEX MEASURED LDL [[id number]] (02/16/2025 2:53 PM CDT) CHOLESTEROL, TOTAL 202(H) <200 mg/dL [facility] HDL CHOLESTEROL 51 > OR = 50 mg/dL [facility] TRIGLYCERIDES 67 <150 mg/dL [facility] LDL-CHOLESTEROL 135(H) mg/dL (calc) [facility] Comment: Reference range: <100 Desirable range <100 mg/dL for primary prevention; <70 mg/dL for patients with CHD or diabetic patients with > or = 2 CHD risk factors. LDL-C is now calculated using the Linda calculation, which is a validated novel method providing better accuracy than the Friedewald equation in the estimation of LDL-C. Kirill SAAVEDRA et al. SHILPA. 2013;310(19): 0187-3579 (http://education.[employer]/faq/SHJ644) CHOL/HDLC RATIO 4.0 <5.0 (calc) [facility] NON HDL CHOLESTEROL 151(H) <130 mg/dL (calc) [facility] Comment: For patients with diabetes plus 1 major ASCVD risk factor, treating to a non-HDL-C goal of <100 mg/dL (LDL-C of <70 mg/dL) is considered a therapeutic option. Blood BLOOD SPECIMEN / Unknown 02/16/2025 2:53 PM CDT 02/16/2025 2:54 PM CDT [employer] DO CHEMISTRY Final Result Performing Organization Address [facility] Co de Phone Number [email or web address] [facility] [address] [place] [address], [employer] [address] * HPV HIGH RISK (02/16/2025 2:47 PM CDT) TYPE 16 Negative Negative 02/21/2025 12:26 PM CDT [facility] [employer] [facility] TYPE 18 Negative Negative 02/21/2025 12:26 PM CDT [facility] OTHER HIGH RISK TYPES Negative Negative 02/21/2025 12:26 PM CDT [facility] Other (Cervical) Non-Blood / Unknown 02/16/2025 2:47 PM CDT 02/19/2025 10:44 AM CDT Narrative [facility] - 02/21/2025 12:26 PM CDT HPV types 16, 18, 31, 33, 35, 39, 45, 51, 52, 56, 58, 59, 66 and 68 DNA were undetectable or below the pre-set threshold. Methodology: [employer] 4800 HPV Test [employer] DO MICROBIOLOGY Final Result [facility] [address] [place] [id number] [place] [address] from Last 3 Months or Most Recently Relevant to Health Maintenance Insurance [facility] ONLY Care Teams Mustanger Relationship Specialty Start Date End Date Angy Guillory DO [address] [place] [address] PCP - General Family Practice 09/29/23
[2025-07-29 23:00] VITALS: BP 140/91; PULSE 72; RESP 18; TEMP 36.2; O2SAT 98; BMI 27.4
--- NOTE | 2025-07-29 23:32 | ED_ITS ---
HPI - Nausea/Vomiting/Diarrhea General Chief complaint: Nausea/Vomiting Stated complaint: Fever, Vomiting, Unable to keep food down Time Seen by Provider: 07/29/25 23:17 History of Present Illness HPI Narrative: This 50-year-old female was diagnosed with influenza 2 days ago. She comes in now because of persistent nausea and vomiting. She does have other typical influenza symptoms but her main reason for visiting today is for better treatment of her nausea and vomiting. Sometimes it is post-tussive emesis that occurs but she also states that she has been attempting to take small sips of fluids but often after5-10 minutes she will have emesis. She arrives here with reassuring vital signs. She states that she did use injectable Zofran intramuscularly and did not get any relief with her symptoms with this treatment. She was hoping for some IV fluids and medicine to help her feel better. Related Data Home Medications ?Medication ?Instructions ?Recorded ?Confirmed albuterol 90 mcg/actuation aerosol See Rx Instructions inhalation 04/24/23 07/29/25 inhaler .COMPLEX eletriptan 40 mg tablet See Rx Instructions .Route P RN 04/24/23 05/08/25 ondansetron HCl 4 mg tablet 4 mg PO Q6H PRN 04/24/23 1 09/29/24 desvenlafaxine succinate 100 mg 100 mg PO DAILY 07/29/25 tablet,extended release 24 hr desvenlafaxine succinate 25 mg 25 mg PO DAILY 05/20/23 05/08/25 tablet,extended release 24 hr Previous Rx's ?Medication ?Instructions ?Recorded pregabalin 200 mg capsule (Lyrica) 200 mg PO .QHS #90 caps 01/05/23 eletriptan 20 mg tablet (Relpax) 20 mg PO Q2-4H PRN mi graine 05/20/23 headache #20 tabs cyclobenzaprine 10 mg tablet 10 mg PO QPM PRN for musc le spasm 06/21/23 #30 tabs eszopiclone 3 mg tablet 3 mg PO QHS #30 tabs 3 metoclopramide HCl 10 mg tablet 10 mg PO Q6H PRN nause a and 07/29/25 (Reglan) vomiting #20 tabs Allergies Allergy/AdvReac Type Severity Reaction Status Date / Time iodine Allergy Mild itching Verified 05/08/25 10:37 hydrocodone AdvReac Mild systemic Verified 05/08/25 10:37 itching, vomiting shellfish Allergy Intermediate Uncoded 05/20/23 16:04 Clavulanate AdvReac Mild Diarrhea Uncoded 12/01/22 14:41 Review of Systems Status of ROS: Reports: 10 or more systems reviewed and unremarkable except as noted in History and below Narrative: Constitutional: No weight gain or loss. Eyes: No discharge. No vision changes. HENT: No congestion, no sore throat, no ear pain. Cardiovascular: No chest pain, no palpitations. Respiratory: No shortness of breath, no wheezes. Frequent cough. Gastrointestinal: No abdominal pain, no diarrhea. Nausea and vomiting as described above. Genitourinary: No dysuria, no hematuria. Musculoskeletal: Normal range of motion. Skin: No rashes, no pruritis. Neurological: No dizziness, weakness, sensory change, speech change. Endo/Heme/Allergies: No bruising or bleeding. No polydipsia. Pysch: no suicidality, no anxiety, no insomnia. All other systems reviewed and are negative. [facility] Medical History Hemorrhoids ?K64.9 - Unspecified hemorrhoids (ICD-10) Surgical History History of colonoscopy ?Z98.890 - Other specified postprocedural states (ICD-10) History of third molar tooth extraction ?K08.409 - Partial loss of teeth, unspecified cause, unspecified class (ICD- 10) History of sinus surgery ?Z98.890 - Other specified postprocedural states (ICD-10) History of ovarian cystectomy ?Z98.890 - Other specified postprocedural states (ICD-10) ?Z87.42 - Personal history of other diseases of the female genital tract (I CD-10) History of hemorrhoidectomy ?Z98.890 - Other specified postprocedural states (ICD-10) History of hammer toe correction ?Z98.890 - Other specified postprocedural states (ICD-10) ?Z87.39 - Personal history of other diseases of the musculoskeletal system and connective tissue (ICD-10) Family History Mother Breast cancer Other Colon cancer Diabetes Heart disease Stroke Social History Narrative: smoker Smoking Status: Current every day smoker How often do you have a drink containing alcohol: never AUDIT-C Alcohol total score: 0 Non-prescribed substance use: denies use service: No Exam Narrative: Exam Narrative: Constitutional: Well-developed, well-nourished, no acute distress. HEENT: Normocephalic, atraumatic. Neck: Normal range of motion. Nontender. Supple. Heart: Regular. No murmurs. Normal rate. Intact distal pulses. Lungs: Clear to auscultation. No chest discomfort. No wheezes, rhonchi, or rales. Abdomen: Normal bowel sounds. Nontender. No rebound tenderness. Genitalia: Deferred. Back: No midline tenderness. Normal range of motion. Extremities: Normal range of motion. No injury. Skin: Intact. No rash. Warm. No erythema or pallor. Neurologic: No altered sensation. No weakness. Alert and oriented. Psychiatric: No suicidality. No anxiety or depression. No insomnia. Nursing notes and vitals signs are reviewed. Const: Vital Signs, click to edit/add: Vital Signs - 24 hr 07/29/25 23:00 Temperature 97.1 F L Pulse Rate [Pulse Oximeter] 72 Respiratory Rate 18 Blood Pressure [Ri ght Upper Arm] 140/91 H Pulse Oximetry 98 Oxygen Delivery Me thod Room Air Course Vital Signs Vital signs: Initial Vital Signs Temperature 97.1 F L 07/29/25 23:00 Temperature Source Temporal Artery Scan 07/29/25 23:00 Pulse Rate 72 07/29/25 23:00 Respiratory Rate 18 07/29/25 23:00 Blood Pressure 140/91 H 07/29/25 23:00 Blood Pressure Mean 107 H 07/29/25 23:00 Pulse Oximetry 98 07/29/25 23:00 Oxygen Delivery Method Room Air 07/29/25 23:00 Vital Signs Temperature 97.1 F L 07/29/25 23:00 Pulse Rate 72 07/29/25 23:00 Respiratory Rate 18 07/29/25 23:00 Blood Pressure 140/91 H 07/29/25 23:00 Pulse Oximetry 98 07/29/25 23:00 Oxygen Delivery Method Room Air 07/29/25 23:00 Temperature 97.1 F L 07/29/25 23:00 Pulse Rate 72 07/29/25 23:00 Respiratory Rate 18 07/29/25 23:00 Blood Pressure 140/91 H 07/29/25 23:00 Pulse Oximetry 98 07/29/25 23:00 Oxygen Delivery Method Room Air 07/29/25 23:00 MDM - Nausea/Vomiting/Diarrhea MDM Narrative Medical decision making narrative: This patient has influenza and is mostly troubled by persistent nausea and vom iting. Some of this occurs after coughing. An IV was established where the patient received a L of normal saline and 4 mg of Zofran. She also received Solu-Medrol 125 mg. She states that she has oral dissolvable Zofran at home. I did provide an [facility] prescription for Tylenol 3 for better pain relief and cough suppressant benefit. This may have some indirect defect along with anti nausea treatments to suppress that vomiting. I also provided a prescription for raglan at her preferred pharmacy. Discharge Plan Discharge Clinical Impression: Influenza Patient Disposition: Home, Self-Care Condition: Stable Additional Instructions: Take medications as prescribed and needed. Take frequent sips of fluids and increase diet as tolerated. Follow up with MD return if worsening. Prescriptions: New metoclopramide HCl [Reglan] 10 mg tablet 10 mg PO Q6H PRN (Reason: nausea and vomiting) Qty: 20 0RF No Action ondansetron HCl 4 mg tablet 4 mg PO Q6H PRN albuterol 90 mcg/actuation aerosol See Rx Instructions INHALATION .COMPLEX Rx Instructions: inhaled; eletriptan 40 mg tablet See Rx Instructions .ROUTE PRN Rx Instructions: as needed; TAKE ONE TAB AT ONSET OF HEADACHE, MAY REPEAT AFTER 2 HOURS IF HEADACHE RETURNS desvenlafaxine succinate 100 mg tablet extended release 24 hr 100 mg PO DAILY desvenlafaxine succinate 25 mg tablet extended release 24 hr 25 mg PO DAILY eletriptan [Relpax] 20 mg tablet 20 mg PO Q2-4H PRN (Reason: migraine headache) Qty: 20 1RF Rx Instructions: do not exceed 4 doses per 24 hrs pregabalin [Lyrica] 200 mg capsule 200 mg PO .QHS Qty: 90 1RF cyclobenzaprine 10 mg tablet 10 mg PO QPM PRN (Reason: for muscle spasm) Qty: 30 3RF eszopiclone 3 mg tablet 3 mg PO QHS Qty: 30 0RF Follow Up/Referrals: nAgy Guillory DO [Primary Care Provider, Family Practice] Stand Alone Forms: MyHealth Info Instructions
[2025-07-29] MEDS: METHYLPREDNISOLONE SOD SUCC 62.5 MG/ML (125) 125 MG IVP (23:41)
[2025-07-29] MEDS: ONDANSETRON 2 MG/ML inj 4 MG IVP (23:41)
--- OUTSIDE RECORDS SUMMARY | 2025-07-30 00:07 | XMS_ITS | Clinical Summary ---
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 Active 08/23 Chey Irvin RN Circadian rhythm sleep disorder, delayed sleep phase type Fibromyalgia 61712551 (SNOMED CT) Active 10/12 Tanner Fernández MD Fibromyositis Insomnia 564696615 (SNOMED CT) Active 10/12 Tanner Wednesday Insomnia Periodic limb movement disorder 953617294 (SNOMED CT) Active 10/12 Tanner Wednesday Periodic limb movement disorder Anemia 057103688 (SNOMED CT) Active Tanner Wednesday Anemia Other disorders of iron metabolism 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 (SNOMED CT) Active Tanner Pradeep MD Disorder of iron metabolism Restless leg syndrome 74808241 (SNOMED CT) Active Tanner Fernández MD Restless legs syndrome CHRONIC MIGRAINE W/O AURA W/INTRACTABLE W/SM G43.711 (ICD-10-CM) 03/23 Active 03/23 Fede Buckley MD Chronic migraine without aura, intractable, with status migrainosus Medications Medication Instructions Start Date Stop Date Generic Name NDC Provider MEDROL 4 MG TBPK take as directed on packet instructions 01/11 methylprednisolone [id number] Teo Godoy MD BD LUER-ALEX SYRINGE 25G X 1 3 ML Use as directed 11/22 syringe with needle 23162745035 Teo Godoy MD POLY HUB NEEDLE 25G X 1-08/24 Use as directed 11/22 needle (disp) 25 gauge 61385177551 Teo Godoy MD PREGABALIN 100 MG CAPS 12/15 pregabalin 73373364968 Teo Godoy MD RELPAX 40 MG TABS 1 pill at NOVAK onset. May combine with 2 Aleve. May repeat in 2 hours if HAs overtreat. 12/15 eletriptan 72047804217 Teo Godoy MD CYCLOBENZAPRINE HCL 10 MG TABS 1 tablet by mouth every night 03/23 cyclobenzaprine 87845420747 Teo Godoy MD PREGABALIN 100 MG CAPS qhs 12/15 pregabalin 87087867088 Teo Godoy MD KETOROLAC TROMETHAMINE 30 MG/ML SOLN 1 intramuscularly as directed 12/15 ketorolac 61521906640 Teo Godoy MD PREGABALIN 25 MG CAPS take 1-2 caps in the AM and an additional 1-2 caps prn qhs 08/23 pregabalin 67647265107 Teo Godoy MD KETOROLAC TROMETHAMINE 30 MG/ML SOLN Inject 1 ml intramuscularly as directed Inject as needed for abortive treatment of migraine headaches 12/15 ketorolac 98500999772 Teo Godoy MD SAVELLA 25 MG TABS milnacipran 23353586710 Teo Godoy MD DESVENLAFAXINE SUCCINATE ER 100 MG [id number] TAKE 1 TABLET BY MOUTH EVERY DAY* desvenlafaxine succinate 39936477159 Teo Godoy MD ESZOPICLONE 3 MG TABS Take 1 Tablet (3 mg) by mouth at bedtime.* eszopiclone 67560772899 Teo Godoy MD METHYLPHENIDATE HCL ER (OSM) 36 MG CR-TABS methylphenidate hcl 34037562807 Oliv zafar Godoy MD NURTEC 75 MG TBDP TAKE 1 TAB AT ONSET OF MIGRAINE. NO MORE THAN 1 TAB EVERY 24 HOURS. 12/15 rimegepant 40004638545 Teo Godoy MD DESVENLAFAXINE SUCCINATE ER 50 MG [id number]-AHF desvenlafaxine succinate 32393846296 Tanner Wednesday PREGABALIN 25 MG CAPS take 1-2 caps in the AM and an additional 1-2 caps prn qhs 08/23 pregabalin 28285806588 Roslyn Jose QUVIVIQ 25 MG TABS Take 1 tablet by mouth at bedtime 08/25 daridorexant 10237147134 bree Wednesday PREGABALIN 25 MG CAPS take 1-2 caps in the AM and an additional 1-2 caps prn qhs 08/23 pregabalin 60903462007 Tanner Wednesday PREGABALIN 100 MG CAPS 12/15 pregabalin 46886108945 Tanner Wednesday PREGABALIN 100 MG CAPS qhs 12/15 pregabalin 93556821518 bree Wednesday POLY HUB NEEDLE 25G X 1-08/24 Use as directed for ketorolac injections 11/22 NEEDLE (DISP) 10702360482 Fede Buckley MD BD LUER-ALEX SYRINGE 25G X 1 3 ML Use as directed with ketorolac injections 11/22 SYRINGE/NEEDLE (DISP) 49511304129 Fede Buckley MD CYMBALTA 60 MG ORAL CAPSULE DELAYED RELEASE PARTICLES 2 pills at hs 03/09 DULOXETINE HCL 46145397184 Fede Buckley MD LUNESTA 3 MG TABS 1 at night as needed 03/09 ESZOPICLONE 12566040317 Fede Buckley MD GABAPENTIN 300 MG CAPS 3 at bedtime 03/23 GABAPENTIN 51371767817 Fede Buckley MD TRAZODONE HCL 100 MG TABS 2 at night 11/22 TRAZODONE HCL 16866950155 Fede Buckley MD ZONEGRAN 25 MG CAPS Weeks #1 and #2 take 1 in PM, then Week #3 and on take 2 in PM 11/22 ZONISAMIDE 16792662710 Fede Buckley MD FERROUS GLUCONATE 324 (37.5 Fe) MG TABS take 1 tab qhs 03/09 FERROUS GLUCONATE 56268642444 Fede Buckley MD EQL VITAMIN C 500 MG TABS take 1 tab qhs with iron 03/09 ASCORBIC ACID 04718798086 Fede Buckley MD LYRICA 200 MG CAPS take 1 cap within 2 hours prior to bed for RLS/PLMs 06/23 PREGABALIN 36444809597 Tanner Wednesday EQTricia VITAMIN C 500 MG TABS take 1 tab qhs with iron 03/09 ASCORBIC ACID 69651080147 Tanner Wednesday FERROUS GLUCONATE 324 (37.5 Fe) MG TABS take 1 tab qhs 03/09 FERROUS GLUCONATE 87439474683 Tanner Wednesday 25 GAUGE 1 AND 1/2 INCH NEEDLE 11/22 25 GAUGE 1 AND 1/2 INCH NEEDLE Fede Buckley MD 1 ML SYRINGE 11/22 1 ML SYRINGE Fede Buckley MD RELPAX 40 MG TABS 1 pill at NOVAK onset. May combine with 2 Aleve. May repeat in 2 hours if HAs overtreat. 03/23 ELETRIPTAN HYDROBROMIDE 01906222150 Fede Buckley MD ZONEGRAN 25 MG CAPS Weeks #1 and #2 take 1 in PM, then Week #3 and on take 2 in PM 11/22 ZONISAMIDE 22139727322 Fede Buckley MD TRAZODONE HCL 100 MG TABS 2 at night 11/22 TRAZODONE HCL 66430606579 Fede Buckley MD VERAPAMIL HCL ER 120 MG CR-TABS 1 daily 03/01 VERAPAMIL HCL 30937253572 Tati Hernandez RN VERAPAMIL HCL ER 120 MG CR-TABS 1 daily 03/01 VERAPAMIL HCL 11954541979 Fede Buckley MD PAXIL CR 25 MG SE10O-CRF 1 daily 03/23 PAROXETINE HCL 34205687970 Fede Buckley MD NORTRIPTYLINE HCL 10 MG CAPS Week #1 take 1 in PM, then Week #2 and on take 2 in PM 03/01 NORTRIPTYLINE HCL 36454106406 Fede Buckley MD NORTRIPTYLINE HCL 10 MG CAPS Week #1 take 1 in PM, then Week #2 and on take 2 in PM 03/01 NORTRIPTYLINE HCL 51868166405 Fede Buckley MD KETOROLAC TROMETHAMINE 30 MG/ML SOLN give 1 IM shot for intractable migraine 07/06 KETOROLAC TROMETHAMINE 28283021545 Fede Buckley MD TOPAMAX 25 MG TABS 3 at bedtime 03/23 TOPIRAMATE 73237618214 Fede Buckley MD PAXIL CR 25 MG ET85S-WBU 1 daily 03/23 PAROXETINE HCL 00862600935 Fede Buckley MD CYCLOBENZAPRINE HCL 10 MG TABS 1 at hs 03/23 CYCLOBENZAPRINE HCL 66448939832 Fede Buckley MD GABAPENTIN 300 MG CAPS 3 at bedtime 03/23 GABAPENTIN 12886480660 Fede Buckley MD TOPAMAX 25 MG TABS 3 at bedtime 03/23 TOPIRAMATE 00590388074 Fede Buckley MD RELPAX 40 MG TABS 1 pill at NOVAK onset. May combine with 2 Aleve. May repeat in 2 hours if HAs overtreat. 03/23 ELETRIPTAN HYDROBROMIDE 64545533262 Fede Buckley MD Medications Administered No information [...] Release information to the Health Information Exchange (Estately) Plan of Care Type Date Detail Referral [...] Procedures Code Procedure Name Date Entry Date [facility]-[id number] Documentation of current medicatio ns [facility]-[id number] Documentation of current medicatio ns CPT-5154274 Occipital nerve bloc k (Greater ONB) bilateral CPT-1107034 Lesser ONB/3rd ONB/Auricular/Preauricular,bilateral ORDERS Patient Instructions ORDERS Obtain outside records 12/15 [facility]-[id number] Documentation of current medicatio ns ORDERS Patient Instructions ORDERS Ferritin Serum [facility]-[id number] Documentation of current medicatio ns ORDERS Ferritin Serum ORDERS Botox Injection ORDERS Migraine Infusion Or alem Set #10: Low Dose Solu-Medrol/Toradol ORDERS Migraine Infusion Or alem Set #10: Low Dose Solu-Medrol/Toradol CPT-J0585 Botox 2 vials CPT-81207 Chem - Face/Neck - Migraine or Headache 2 CPT-J0585 Botox 2 vials CPT-38895 Chem - Face/Neck - Migraine or Headache 2 ORDERS Botox Injection CPT-J0585 Botox 2 vials CPT-90725 Chem - Face/Neck - Migraine or Headache 2 CPT-J0585 Botox 2 vials CPT-95749 Chem - Face/Neck - Migraine or Headache 2 CPT-J0585 Botox 1 vial CPT-98360 Chem - Face/Neck - Migraine or Headache 2 ORDERS Follow up ORDERS Follow up ORDERS Iron & Total Iron-binding Capacity (TIBC) ORDERS Instructions for Staff 06/08 ORDERS Iron ORDERS Follow up [facility]CT-[id number] Documentation of current medicatio ns ORDERS Ferritin Serum SCT-[id number] Other Referral CPT-J0585 Botox 1 vial CPT-48107 Chem - Face/Neck - Migraine or Headache 2 ORDERS Other Handout ORDERS Follow up CPT-J0585 Botox 1 vial CPT-38677 Chem - Face/Neck - Migraine or Headache 2 ORDERS Patient Instructions CPT-65097 Brief emotional/behavioral assessment 201 03/26/02 [facility]-[id number] Documentation of current medicatio ns ORDERS Follow up ORDERS Patient Instructions ORDERS Follow up CPT-84093 Brief emotional/behavioral assessment 201 02/26/10 [facility]-[id number] Documentation of current medicatio ns CPT-14761 Brief emotional/behavioral assessment 201 02/20/09 [facility]-[id number] Documentation of current medicatio ns ORDERS Follow up [facility]-[id number] Documentation of current medicatio ns CPT-36311 Brief emotional/behavioral assessment 201 01/30/31 ORDERS Follow up [id number] MRI-Brain W/O CPT-24897 Brief emotional/behavioral assessment 201 01/28/01 [facility]-[id number] Documentation of current medicatio ns ORDERS Patient [...]
--- OUTSIDE RECORDS SUMMARY | 2025-07-30 00:07 | XMS_ITS | Clinical Summary ---
Author Organization [facility] Address [address] [place] [address] Care Team Providers Care Aircraft Machinist Name Role Phone Bessy Rivera PA-C Primary Care Provider [phone] Source Comments You are receiving this document as you are listed as the primary care provider,follow-up provider, or the patient has been referred to you for consultation.This is in compliance with the Medicare and[facility] E[facility] Incentive Program,which states Providers who transition their patient to another setting of careor provider of care or refers their patient to another provider of care shouldprovide summary care record for each transition of care or referral. SERPs Allergies Active Allergy Reactions Criticality Noted Date [...] series) 03/17/1999,12/13/1997,10/31/1997 Influenza IIV4 (Quadrivalent ) 0.5mL (94571) 05/20/2022,05/20/2022,05/23/2021,2016,05/14/2016 Influenza, Unspecified Formulation 06/17/2009, Mary COVID-19 [...] CDT HIV ANTIBODY Routine 11/23/2003 9:52 AM CLIENT SPECIALIST from Last 3 Months or Most Recently Relevant to Health Maintenance Results * Pap Smear (04/11/2010 9:36 AM CDT) Pap Smear SEE TEXT No normal range HP CONVERSION Comment: Final GYNECOLOGICAL CYTOLOGY REPORT Pathology #: [id number] Date Obtained: 04/11/2010 Date Received: 04/14/2010 INTERPRETATION/RESULTS: [...] CONVERSION * HIV Antibody (11/23/2003 9:52 AM CLIENT SPECIALIST) HIV 1/HIV 2 Non Reac Non Reac HP CONVERSION 11/23/2003 9:52 AM CLIENT SPECIALIST us Preeti Cano APRN, CNP LAB_1 Final Result HP CONVERSION from Last 3 Months or Most Recently Relevant to Health Maintenance Insurance [facility] Care Teams Aircraft Machinist Relationship Specialty Start Date End Date Bessy Rivera PA-C [address] [place] [address] PCP - General Physician Traffic Administrator 12/27/20
--- OUTSIDE RECORDS SUMMARY | 2025-07-30 00:08 | XMS_ITS | Clinical Summary ---
Author Organization [facility] Address [address] [place] [address] Care Team Providers Care Complaint Inspector Name Role Phone Angy Guillory DO Primary Care Provider [phone] Allergies Active Allergy Reactions Criticality Noted Date [...] 10/2003 HSIL/ Squamous carcinoma in situ 10/2003 [place], [place] 2-3/ HSIL 02/2004 HSIL/ squamous carcinoma [...] Type Department Care Team Description 06/25/2025 Refill [facility] [address] [place] [address] Angy Guillory DO Refill Request (Cyclobenzaprine) 06/04/2025 1:20 PM CDT E-Visit [facility] [address] [place] [address] Angy Guillory DO eVisit for Sinus from [...] (ABNORMAL) LIPID PANEL W REFLEX MEASURED LDL [[id number]] (02/16/2025 2:53 PM CDT) CHOLESTEROL, TOTAL 202(H) [...] LDL-C. Kirill SAAVEDRA et al. SHILPA. 2013;310(19): 5516-5371 (http://education.[employer]/faq/RTB764) CHOL/HDLC RATIO 4.0 <5.0 (calc) [facility] NON HDL CHOLESTEROL 151(H) <130 mg/dL (calc) [facility] Comment: For patients with diabetes plus 1 major ASCVD risk factor, treating to a non-HDL-C goal of <100 mg/dL (LDL-C of <70 mg/dL) is considered a therapeutic option. Blood BLOOD SPECIMEN / Unknown 02/16/2025 2:53 PM CDT 02/16/2025 2:54 PM CDT [employer] DO CHEMISTRY Final Result Performing Organization Address [facility] Co de Phone Number [employer] [facility] [address] [place] [address], [employer] [address] * HPV HIGH RISK (02/16/2025 2:47 PM CDT) TYPE 16 Negative Negative 02/21/2025 12:26 PM CDT [facility] [employer] [facility] TYPE 18 Negative Negative 02/21/2025 12:26 PM CDT [facility] OTHER HIGH RISK TYPES Negative Negative 02/21/2025 12:[address] Other (Cervical) Non-Blood / Unknown 02/16/2025 2:47 PM CDT 02/19/2025 10:44 AM CDT Narrative [facility] - 02/21/2025 12:26 PM CDT HPV types 16, 18, 31, 33, 35, 39, 45, 51, 52, 56, 58, 59, 66 and 68 DNA were undetectable or below the pre-set threshold. Methodology: [facility] [employer] 4800 HPV Test [employer] DO MICROBIOLOGY Final Result [facility] [address] [place] [id number] [place] [address] from Last 3 Months or Most Recently Relevant to Health Maintenance Insurance [facility] [place] ONLY Care Teams Complaint Inspector Relationship Specialty Start Date End Date Angy Guillory DO [address] [place] [address] PCP - General Family Practice 09/29/23
[2025-07-30 00:36] VITALS: BP 137/113; PULSE 78; RESP 18; O2SAT 100
== END 2025-07-30 00:39 | disposition home or self-care (01) ==
LOC: ED 07-30 00:05
PROVIDERS: Emergency Provider Emergency Medicine Emergency Medical Services; PCP Family Medicine
DX: J10.1 Influenza due to other identified influenza virus with other respiratory manifestations (principal)
CPT/HCPCS: 96374; 96375; 99283; 99284; J2405; J2919; J7030